=== PATIENT | male | born 1935 | race Caucasian/White ===

== ENCOUNTER 2019-04-22 17:18 | Emergency (ER) | payer MEDICARE ==
--- NOTE | 2019-04-22 17:20 | ERPHSYRPT ---
- History of Present Illness Time Seen by Provider: 04/22/19 17:20 Source: patient, family Exam Limitations: no limitations Physician History: 83 y/o white male presents with lower back pain and bilat rib pain after slipping out of his chair. pt is ordinarily kyphotic. when he hit the floor on his back he felt his back flattened out and then rib pain began. 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 he is ok with narcotics here and only for a couple of days at home but not more than that. denies head or neck injury. Occurred: this afternoon Reason for Fall: slipped Injuries/Pain Location: back, lower, middle Loss of Consciousness: no loss of consciousness Quality: sharpness Severity of Pain-Max: moderate Severity of Pain-Current: moderate Modifying Factors: Improves With: movement Associated Symptoms (Fall): back pain, trouble walking Allergies/Adverse Reactions: No Known Drug Allergies Allergy (Unverified 04/22/19 17:32) Home Medications: Dronedarone HCl [Multaq] 400 mg PO DAILY 04/22/19 [History] Finasteride 5 mg PO DAILY 04/22/19 [History] Furosemide 40 mg PO DAILY 04/22/19 [History] Metoprolol Succinate 50 mg PO DAILY 04/22/19 [History] Tamsulosin HCl 0.4 mg PO DAILY 04/22/19 [History] - Review of Systems Constitutional: No Symptoms Eyes: No Symptoms Ears, Nose, & Throat: No Symptoms Respiratory: No Symptoms Cardiac: No Symptoms Abdominal/Gastrointestinal: No Symptoms Genitourinary Symptoms: No Symptoms Musculoskeletal: Back Pain, Other (bilat rib pain) Skin: No Symptoms Neurological: No Symptoms Psychological: No Symptoms Endocrine: No Symptoms Hematologic/Lymphatic: No Symptoms Immunological/Allergic: No Symptoms All Other Systems: Reviewed and Negative - Past Medical History Neurological History: TIA Cardiac History: No Pertinent History, Hypertension Respiratory History: No Pertinent History Endocrine Medical History: No Pertinent History Musculoskeletal History: Osteoarthritis GI Medical History: No Pertinent History History: No Pertinent History Psycho-Social History: No Pertinent History Other Medical History: PT. HAD RETINAL TIA SVERAL YEARS AGO - Past Surgical History Neuro Surgical History: No Pertinent History Cardiac: No Pertinent History Respiratory: No Pertinent History Gastrointestinal: No Pertinent History Genitourinary: No Pertinent History Musculoskeletal: No Pertinent History Male Surgical History: No Pertinent History - Nursing Vital Signs Nursing Vital Signs: Initial Vital Signs Temperature 98.0 F 04/22/19 17:25 Pulse Rate 53 L 04/22/19 17:25 Respiratory Rate 20 04/22/19 17:25 Blood Pressure 178/83 04/22/19 17:25 O2 Sat by Pulse Oximetry 100 04/22/19 17:25 Pain Scale Pain Intensity 6 - Jeet Coma Score Best Eye Response (Central): (4) open spontaneously Best Verbal Response (Jeet): (5) oriented Best Motor Response (Central): (6) obeys commands Central Total: 15 - Physical Exam General Appearance: no apparent distress, alert, anxiety Head Injury: no evidence of injury Eye Exam: PERRL/EOMI, eyes nml inspection ENT Exam: airway nml, nml ext.inspection Neck Exam: supple, trachea midline, full range of motion, normal alignment Respiratory/Chest Exam: No chest tenderness, No respiratory distress, No crepitus Gastrointestinal Exam: soft, normal bowel sounds, No tenderness Rectal Exam: not done Back Exam: vertebral tenderness (lumbar and lower thoraci), other (bilat lower rib pain) Extremity Exam: normal inspection, normal range of motion, pelvis stable Neurologic Exam: alert, oriented x 3, cooperative, 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, normal mood/affect, nml cerebellar function Skin Exam: normal color, warm, dry SpO2 Interpretation: normal O2 Delivery: Room Air Ordered Tests: Active Orders 24 hr Category Date Time Status LUMBAR LIMITED (2 OR 3 VIEWS) Stat Exams 04/22/19 17:41 Ordered RIBS BILATERAL (MIN 3 VIEWS) Stat Exams 04/22/19 Ordered THORACIC SPINE (AP,LAT,SWIMM) Stat Exams 04/22/19 17:41 Ordered Medication Summary Discontinued Medications Generic Name Dose Route Start Last Admin Trade Name Freq PRN Reason Stop Dose Admin Hydromorphone HCl 0.5 mg 04/22/19 18:48 Hydromorphone 1 Mg/Ml Ampule IM 04/22/19 18:49 STAT ONE Hydromorphone HCl Confirm 04/22/19 18:56 Hydromorphone 1 Mg/Ml Ampule Administered 04/22/19 18:57 Dose 1 mg .ROUTE .STK-MED ONE Lorazepam 0.5 mg 04/22/19 18:49 Ativan 2 Mg/1 Ml Vial IM 04/22/19 18:50 STAT ONE Lorazepam Confirm 04/22/19 18:56 Ativan 2 Mg/1 Ml Vial Administered 04/22/19 18:57 Dose 2 mg .ROUTE .STK-MED ONE Ondansetron HCl 4 mg 04/22/19 18:49 Zofran Odt 4 Mg PO 04/22/19 18:50 STAT ONE Ondansetron HCl Confirm 04/22/19 18:56 Zofran Odt 4 Mg Administered 04/22/19 18:57 Dose 4 mg .ROUTE .STK-MED ONE - Progress Progress: unchanged Progress Note: 04/22/19 19:14 rib xrays-no acute fx lumbar xray-no acute fx or subluxation thoracic xray-no acute fx or subluxation Counseled pt/family regarding: diagnosis, need for follow-up, rad results - Departure Departure Disposition: Home Clinical Impression: Fall, Back pain, Rib pain Condition: Stable Critical Care Time: No Referrals: ROB LIZAMA MD [Primary Care Provider] - Additional Instructions: follow up with primary doctor for further pain management. add allever 2 times daily with food for pain. Prescriptions: Carisoprodol 350 mg [Soma 350 mg] 350 mg PO Q12H PRN PRN #6 tablet MDD 2 PRN Reason: Muscle Spasms Oxycodone HCl/Acetaminophen [Percocet 5-325 mg Tablet] 1 each PO Q12H PRN PRN # 6 tablet MDD 2 PRN Reason: Pain
[2019-04-22 17:32] VITALS: PULSE 53
[2019-04-22] MEDS ORDERED: Hydromorphone 1 mg/ml Ampule IM ONE (18:48)
[2019-04-22] MEDS ORDERED: ZOFRAN ODT 4 MG PO ONE (18:49)
[2019-04-22] MEDS ORDERED: Ativan 2 MG/1 ML VIAL IM ONE (18:49)
[2019-04-22] MEDS ORDERED: Ativan 2 MG/1 ML VIAL ONE (18:56)
[2019-04-22] MEDS ORDERED: Hydromorphone 1 mg/ml Ampule ONE (18:56)
[2019-04-22] MEDS ORDERED: ZOFRAN ODT 4 MG ONE (18:56)
[2019-04-22 19:24] VITALS: BP 151/80; O2SAT 94
[2019-04-22] MEDS ORDERED: PERCOCET TABLET 5/325MG PO STA (20:15)
[2019-04-22] MEDS ORDERED: PERCOCET TABLET 5/325MG ONE (20:23)
--- NOTE | 2019-04-23 08:45 | XRAY ---
Indication: Pain following fall. Comparison: None 3 views of the lumbar spine demonstrates 5 lumbar vertebral segments with minimal levoscoliosis, moderate multilevel degenerative spondylosis, mild aortoiliac ossifications, and calcified splenic granuloma. No other bony, articular, or soft tissue abnormalities.
--- NOTE | 2019-04-23 08:47 | XRAY ---
Indication: Pain following fall. Comparison: None 2 views of the left and right ribs demonstrates mild/moderate degenerative changes throughout thoracolumbar spine, mild double curvature scoliosis, and pulmonary/splenic calcified granulomas. No other bony, articular, or soft tissue abnormalities.
--- NOTE | 2019-04-23 08:49 | XRAY ---
Indication: Pain following fall. Comparison: None 2 views of the thoracic spine demonstrates 12 typical rib-bearing thoracic vertebral segments with mild dextroscoliosis centered at T10, mild/moderate degenerative changes throughout the spine, and pulmonary/splenic calcified granulomas. No other bony, articular, or soft tissue abnormalities.
== END 2019-04-22 20:36 | disposition home or self-care (01) ==
LOC: ED 17:18
DX: M54.5 Low back pain (principal); R07.81 Pleurodynia; W07.XXXA Fall from chair, initial encounter; Z79.899 Other long term (current) drug therapy; Z86.73 Personal history of transient ischemic attack (TIA), and cerebral infarction without residual deficits; I10 Essential (primary) hypertension
CPT/HCPCS: 71110; 72072; 72100; 96372; 99284; J1170; J2060; Q0162; A9270-GY

== ENCOUNTER 2019-11-04 10:36 | Emergency (ER) | payer MEDICARE ==
--- NOTE | 2019-11-04 10:43 | ERPHSYRPT ---
- History of Present Illness Time Seen by Provider: 11/04/19 10:43 Source: patient Exam Limitations: no limitations Physician History: This is an 84-year-old gentleman who has a history of hypertension and is also taking Eliquis chronically, who presents with a 4-day history of mild cough and fever. He has no specific chest pain. He has no abdominal pain he had no nausea vomiting or diarrhea. Patient has no known exposures to any one with flulike symptoms or diagnoses. Patient was seen in the outpatient care clinic but because of his fever he was sent to the emergency room for evaluation. Patient's temperature here in the emergency room upon arrival is over 102 F despite taking Tylenol approximately 1 hour prior to arrival. Patient does have some weakness that is generalized. He has only mild shortness of breath. Timing/Duration: day(s) (4) Activities at Onset: none Severity of Dyspnea-Max: mild Severity of Dyspnea-Current: mild Possible Cause: no prior episodes Modifying Factors: Improves With: coughing (Mild) Associated Symptoms: cough (Mild), fever, No chest pain/discomfort Allergies/Adverse Reactions: No Known Drug Allergies Allergy (Verified 11/04/19 10:44) Home Medications: Dronedarone HCl [Multaq] 400 mg PO DAILY 04/22/19 [History] Finasteride 5 mg PO DAILY 04/22/19 [History] Furosemide 40 mg PO DAILY 04/22/19 [History] Metoprolol Succinate 50 mg PO DAILY 04/22/19 [History] Tamsulosin HCl 0.4 mg PO DAILY 04/22/19 [History] Apixaban [Eliquis] 2.5 mg PO BID 11/04/19 [History] Benzonatate 100 mg PO DAILY 11/04/19 [History] Levothyroxine Sodium [Synthroid] 25 mcg PO DAILY 11/04/19 [History] allopurinoL [Allopurinol] 300 mg PO DAILY 11/04/19 [History] Hx Tetanus, Diphtheria Vaccination/Date Given: Yes Hx Influenza Vaccination/Date Given: Yes Hx Pneumococcal Vaccination/Date Given: Yes Travel Risk - International Travel Have you traveled outside of the country in past 3 weeks: No (n) Have you or anyone close to you been diagnosed with or: No Do your reside in a community with a known COVID-19 case?: Yes If Yes where:: [place] - Review of Systems Constitutional: Fever, Weakness Eyes: No Symptoms Ears, Nose, & Throat: No Symptoms Respiratory: Cough (Mild), Dyspnea (Mild) Cardiac: No Symptoms Abdominal/Gastrointestinal: No Symptoms Genitourinary Symptoms: No Symptoms Musculoskeletal: No Symptoms Skin: No Symptoms Neurological: No Symptoms Psychological: No Symptoms Endocrine: No Symptoms Hematologic/Lymphatic: No Symptoms Immunological/Allergic: No Symptoms All Other Systems: Reviewed and Negative - Past Medical History Pertinent Past Medical History: Yes Neurological History: TIA Cardiac History: Arrhythmia, Hypertension Respiratory History: No Pertinent History Endocrine Medical History: Adrenal Insufficiency Musculoskeletal History: Osteoarthritis GI Medical History: No Pertinent History History: No Pertinent History Psycho-Social History: No Pertinent History Male Reproductive Disorders: No Pertinent History Other Medical History: 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 inguinal hernia - Social History Smoking Status: Former smoker Exposure to second hand smoke: No Drug Use: none Patient Lives Alone: No - Nursing Vital Signs Nursing Vital Signs: Initial Vital Signs Temperature 102.6 F 11/04/19 10:38 Pulse Rate 79 11/04/19 10:38 Respiratory Rate 24 11/04/19 10:38 Blood Pressure 108/54 11/04/19 10:38 O2 Sat by Pulse Oximetry 98 11/04/19 10:38 Pain Scale Pain Intensity 0 - Physical Exam General Appearance: no apparent distress, alert, anxiety (Mild) Eye Exam: PERRL/EOMI, eyes nml inspection Ears, Nose, Throat Exam: hearing grossly normal Neck Exam: normal inspection, non-tender, supple, full range of motion Respiratory Exam: normal breath sounds, lungs clear, airway intact, No chest tenderness, No respiratory distress Cardiovascular/Chest Exam: normal heart sounds, regular rate/rhythm Abdominal/Gastrointestinal Exam: soft, normal bowel sounds, No tenderness, No guarding, No rebound Rectal Exam: not done Extremity Exam: non-tender, normal range of motion, normal inspection Neurologic Exam: alert, oriented x 3, cooperative, bicycle i assembler 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 tested Skin Exam: normal color, warm, dry Lymphatic Exam: No adenopathy SpO2 Interpretation: normal O2 Delivery: Room Air - Course Nursing assessment & vital signs reviewed: Yes EKG Interpreted by Me: RATE (75), Sinus Rhythm, NORMAL AXIS, NORMAL INTERVALS, NORMAL QRS, Other (No comparison EKG) Ordered Tests: Active Orders 24 hr Category Date Time Status Car Washer STAT Care 11/04/19 10:55 Active EKG-ER Only STAT Care 11/04/19 10:54 Active IV Insertion STAT Care 11/04/19 10:54 Active CHEST 1 VIEW (PORTABLE) Stat Exams 11/04/19 10:55 Completed BLOOD CULTURE Stat Lab 11/04/19 11:20 Received CBC W DIFF Stat Lab 11/04/19 11:20 Completed CMP Stat Lab 11/04/19 11:20 Completed Lactic Acid Stat Lab 11/04/19 10:54 Completed Lactic Acid Stat Lab 11/04/19 13:06 Received Manual Differential NC Stat Lab 11/04/19 11:20 Completed [place] Screen Stat Lab 11/04/19 11:20 Completed NT PRO BNP Stat Lab 11/04/19 11:20 Completed PROTIME WITH INR Stat Lab 11/04/19 11:20 Completed TROPONIN Q3H Lab 11/04/19 11:20 Completed TROPONIN Q3H Lab 11/04/19 14:00 Ordered TROPONIN Q3H Lab 11/04/19 17:00 Ordered TROPONIN Q3H Lab 11/04/19 20:00 Ordered TROPONIN Q3H Lab 11/04/19 23:00 Ordered UA W/RFX UR CULTURE Stat Lab 11/04/19 12:20 Completed Medication Summary Generic Name Dose Route Start Last Admin Trade Name Freq PRN Reason Stop Dose Admin Sodium Chloride 1,000 mls @ 999 mls/hr 11/04/19 12:52 11/04/19 12:58 Sodium Chloride 0.9% 1000 Ml IV 11/04/19 13:52 999 mls/hr .Q1H1M STA Administration Discontinued Medications Generic Name Dose Route Start Last Admin Trade Name Freq PRN Reason Stop Dose Admin Acetaminophen 650 mg 11/04/19 10:56 11/04/19 11:09 Tylenol 325 Mg PO 11/04/19 10:57 Not Given STAT STA Sodium Chloride 1,000 mls @ 999 mls/hr 11/04/19 10:54 11/04/19 11:07 Sodium Chloride 0.9% 1000 Ml IV 11/04/19 11:54 999 mls/hr .Q1H1M STA Administration Sodium Chloride Confirm 11/04/19 11:06 Sodium Chloride 0.9% 1000 Ml Administered 11/04/19 11:07 Dose 1,000 mls @ ud .ROUTE .STK-MED ONE Sodium Chloride Confirm 11/04/19 12:56 Sodium Chloride 0.9% 1000 Ml Administered 11/04/19 12:57 Dose 1,000 mls @ ud .ROUTE .STK-MED ONE Lab/Rad Data: Laboratory Result Diagrams 11/04/19 11:20 11/04/19 11:20 Laboratory Results 11/04/19 11/04/19 11/04/19 Range/Units 12:20 11:20 11:20 WBC (4.0-10.5) K/mm3 RBC (4.1-5.6) M/mm3 Hgb (12.5-18.0) gm/dl Hct (42-50) % MCV (78-100) fl MCH (26-32) pg MCHC (32-36) g/dl RDW (11.5-14.0) % Plt Count (150-450) K/mm3 MPV (7.5-11.0) fl PT (8.83-12.87) SECONDS INR (0.8-3.0) Sodium (137-145) mmol/L Potassium (3.5-5.1) mmol/L Chloride (98-107) mmol/L Carbon Dioxide (22-30) mmol/L Anion Gap (5-15) MEQ/L BUN (9-20) mg/dL Creatinine (0.66-1.25) mg/dL Estimated GFR ML/MIN Glucose (74-106) mg/dL Lactic Acid (0.4-2.0) Calcium (8.4-10.2) mg/dL Total Bilirubin (0.2-1.3) mg/dL AST (17-59) U/L ALT (0-50) U/L Alkaline Phosphatase (38-126) U/L Troponin I (0.000-0.034) ng/mL NT-Pro-B Natriuret Pep (0-1800) pg/mL Serum Total Protein (6.3-8.2) g/dL Albumin (3.5-5.0) g/dL Urine Color YELLOW (YELLOW) Urine Appearance CLEAR (CLEAR) Urine pH 5.0 (5-6) Ur Specific [place] 1.011 (1.005-1.025) Urine Protein NEGATIVE (Negative) Urine Ketones NEGATIVE (NEGATIVE) Urine Blood NEGATIVE (0-5) Erich/ul Urine Nitrite NEGATIVE (NEGATIVE) Urine Bilirubin NEGATIVE (NEGATIVE) Urine Urobilinogen NEGATIVE (0-1) mg/dL Ur Leukocyte Esterase NEGATIVE (NEGATIVE) Urine WBC (Auto) NONE (0-5) /HPF Urine RBC (Auto) 0-2 (0-2) /HPF U Hyaline Cast (Auto) 6-10 (0-2) /LPF U Epithel Cells (Auto) NONE (FEW) /HPF Urine Bacteria (Auto) NONE (NEGATIVE) /HPF Urine Mucus (Auto) SLIGHT (NEGATIVE) /HPF Urine Culture Reflexed NO (NO) Urine Glucose NEGATIVE (NEGATIVE) mg/dL Monoscreen NEGATIVE (Negative) Influenza Type A Ag NEGATIVE (NEGATIVE) Influenza Type B Ag NEGATIVE (NEGATIVE) RSV (PCR) NEGATIVE (Negative) 11/04/19 11/04/19 11/04/19 Range/Units 11:20 11:20 11:20 WBC (4.0-10.5) K/mm3 RBC (4.1-5.6) M/mm3 Hgb (12.5-18.0) gm/dl Hct (42-50) % MCV (78-100) fl MCH (26-32) pg MCHC (32-36) g/dl RDW (11.5-14.0) % Plt Count (150-450) K/mm3 MPV (7.5-11.0) fl PT 22.2 H (8.83-12.87) SECONDS INR 1.94 (0.8-3.0) Sodium 143 (137-145) mmol/L Potassium 3.9 (3.5-5.1) mmol/L Chloride 104 (98-107) mmol/L Carbon Dioxide 29 (22-30) mmol/L Anion Gap 13.6 (5-15) MEQ/L BUN 64 H (9-20) mg/dL Creatinine 2.46 H (0.66-1.25) mg/dL Estimated GFR 26.8 ML/MIN Glucose 117 H (74-106) mg/dL Lactic Acid (0.4-2.0) Calcium 8.5 (8.4-10.2) mg/dL Total Bilirubin 0.80 (0.2-1.3) mg/dL AST 49 (17-59) U/L ALT 38 (0-50) U/L Alkaline Phosphatase 96 (38-126) U/L Troponin I < 0.012 (0.000-0.034) ng/mL NT-Pro-B Natriuret Pep 1040 (0-1800) pg/mL Serum Total Protein 6.9 (6.3-8.2) g/dL Albumin 3.9 (3.5-5.0) g/dL Urine Color (YELLOW) Urine Appearance (CLEAR) Urine pH (5-6) Ur Specific [place] (1.005-1.025) Urine Protein (Negative) Urine Ketones (NEGATIVE) Urine Blood (0-5) Erich/ul Urine Nitrite (NEGATIVE) Urine Bilirubin (NEGATIVE) Urine Urobilinogen (0-1) mg/dL Ur Leukocyte Esterase (NEGATIVE) Urine WBC (Auto) (0-5) /HPF Urine RBC (Auto) (0-2) /HPF U Hyaline Cast (Auto) (0-2) /LPF U Epithel Cells (Auto) (FEW) /HPF Urine Bacteria (Auto) (NEGATIVE) /HPF Urine Mucus (Auto) (NEGATIVE) /HPF Urine Culture Reflexed (NO) Urine Glucose (NEGATIVE) mg/dL Monoscreen (Negative) Influenza Type A Ag (NEGATIVE) Influenza Type B Ag (NEGATIVE) RSV (PCR) (Negative) 11/04/19 11/04/19 Range/Units 11:20 10:54 WBC 5.3 (4.0-10.5) K/mm3 RBC 3.73 L (4.1-5.6) M/mm3 Hgb 11.2 L (12.5-18.0) gm/dl Hct 34.9 L (42-50) % MCV 93.6 (78-100) fl MCH 30.0 (26-32) pg MCHC 32.1 (32-36) g/dl RDW 15.0 H (11.5-14.0) % Plt Count 178 (150-450) K/mm3 MPV 10.0 (7.5-11.0) fl PT (8.83-12.87) SECONDS INR (0.8-3.0) Sodium (137-145) mmol/L Potassium (3.5-5.1) mmol/L Chloride (98-107) mmol/L Carbon Dioxide (22-30) mmol/L Anion Gap (5-15) MEQ/L BUN (9-20) mg/dL Creatinine (0.66-1.25) mg/dL Estimated GFR ML/MIN Glucose (74-106) mg/dL Lactic Acid 2.4 H (0.4-2.0) Calcium (8.4-10.2) mg/dL Total Bilirubin (0.2-1.3) mg/dL AST (17-59) U/L ALT (0-50) U/L Alkaline Phosphatase (38-126) U/L Troponin I (0.000-0.034) ng/mL NT-Pro-B Natriuret Pep (0-1800) pg/mL Serum Total Protein (6.3-8.2) g/dL Albumin (3.5-5.0) g/dL Urine Color (YELLOW) Urine Appearance (CLEAR) Urine pH (5-6) Ur Specific [place] (1.005-1.025) Urine Protein (Negative) Urine Ketones (NEGATIVE) Urine Blood (0-5) Erich/ul Urine Nitrite (NEGATIVE) Urine Bilirubin (NEGATIVE) Urine Urobilinogen (0-1) mg/dL Ur Leukocyte Esterase (NEGATIVE) Urine WBC (Auto) (0-5) /HPF Urine RBC (Auto) (0-2) /HPF U Hyaline Cast (Auto) (0-2) /LPF U Epithel Cells (Auto) (FEW) /HPF Urine Bacteria (Auto) (NEGATIVE) /HPF Urine Mucus (Auto) (NEGATIVE) /HPF Urine Culture Reflexed (NO) Urine Glucose (NEGATIVE) mg/dL Monoscreen (Negative) Influenza Type A Ag (NEGATIVE) Influenza Type B Ag (NEGATIVE) RSV (PCR) (Negative) - Progress Air Movement: good Progress Note: 11/04/19 11:29 Chest x-ray is a no evidence of acute process 11/04/19 11:30 Medical decision making: This patient is an 84-year-old gentleman who has fever with mild cough mild shortness of breath. He has had no known exposure to any individuals with flulike symptoms. However, there is positive COVID patients in this community. Patient does have a risk of rapid worsening of symptoms if he is positive for the COVID virus. Therefore, we will be doing a septic/fever work-up including testing him for the COVID virus. Differential diagnosis includes pneumonia, urinary tract infection, viral illness. Less likely would be thyroid or adrenal causes. 11/04/19 13:12 Patient states that he is feeling much better after the liter of fluid. We will give him a second liter of fluid. I am not finding any bacterial source of his fever. It is likely a viral illness. His respiratory panel is negative. The COVID lab test is pending. We will allow the patient to be discharged to home with self quarantining. We will notify him of his lab results. Blood Culture(s) Obtained: Yes Counseled pt/family regarding: lab results, diagnosis, need for follow-up, rad results - Departure Departure Disposition: Home Clinical Impression: Fever, Viral illness Condition: Stable Critical Care Time: No Referrals: ROB LIZAMA MD [Primary Care Provider] - Additional Instructions: Drink plenty of fluids. Use Tylenol 650 mg every 4 hours for fever control. Self quarantine until you receive word of your test results. This may take several days. Continue your medication as prescribed. Return to the emergency department if your symptoms worsen.
[2019-11-04] MEDS ORDERED: Sodium Chloride 0.9% 1000 ML 1,000 ML IV STA ×2 (10:54→12:52)
[2019-11-04] MEDS ORDERED: TYLENOL 325 MG PO STA (10:56)
[2019-11-04] MEDS ORDERED: Sodium Chloride 0.9% 1000 ML 1,000 ML ONE ×2 (11:06→12:56)
--- NOTE | 2019-11-04 11:19 | XRAY ---
Indication: Short of breath and cough. Comparison: February 25, 2019. Portable chest less inflated and remains clear. Heart is not enlarged for AP portable technique. Bony thorax intact again with mild degenerative changes. No new/acute findings. Impression: Continued nonacute chest.
[2019-11-04 11:40] LABS: Hematocrit 34.9 % (42-50); Hemoglobin 11.2 gm/dl (12.5-18.0); Mean Cell Volume 93.6 fl (78-100); Mean Corpuscular Hgb Concent. 32.1 g/dl (32-36); Platelet Count 178 K/mm3 (150-450); Red Blood Count 3.73 M/mm3 (4.1-5.6); White Blood Count 5.3 K/mm3 (4.0-10.5)
[2019-11-04 11:46] LABS: INR 1.94 (0.8-3.0); PROTIME 22.2 SECONDS (8.83-12.87)
[2019-11-04 11:59] LABS: ALBUMIN 3.9 g/dL (3.5-5.0); ANION GAP 13.6 MEQ/L (5-15); Calcium 8.5 mg/dL (8.4-10.2); Creatinine 1 2.46 mg/dL (0.66-1.25); Potassium 3.9 mmol/L (3.5-5.1); Total Protein 6.9 g/dL (6.3-8.2)
[2019-11-04 12:05] LABS: BILIRUBIN,TOTAL 0.8 mg/dL (0.2-1.3)
[2019-11-04 12:16] LABS: INFLUENZA A NEGATIVE (NEGATIVE); INFLUENZA B NEGATIVE (NEGATIVE); RESPIRATORY SYNCTIAL VIRUS NEGATIVE (Negative)
[2019-11-04 12:26] LABS: Appearance CLEAR (CLEAR); Bilirubin NEGATIVE (NEGATIVE); Blood NEGATIVE Ery/ul (0-5); Glucose NEGATIVE (NEGATIVE); Ketones NEGATIVE (NEGATIVE); Leukocyte Esterase NEGATIVE (NEGATIVE); Mucus SLIGHT /HPF (NEGATIVE); Nitrite NEGATIVE (NEGATIVE); Protein,Urine Dip NEGATIVE (Negative); RBC 0-2 /HPF (0-2); Specific Gravity 1.011 (1.005-1.025); Urobilinogen NEGATIVE mg/dL (0-1)
[2019-11-04 13:12] VITALS: O2SAT 98
[2019-11-04 13:46] VITALS: BP 118/79; PULSE 85
[2019-11-04 14:49] LABS: BAND 16 % (0.0-2.0); Eosinophil 2 % (0.00-3.0); Lymphocytes 12 % (24-44); Monocyte 2 % (0.0-12.0); Neutrophils 68 % (36.-66.); Platelet Estimate NORMAL (NORMAL); Total Cells Counted 100
== END 2019-11-04 14:15 | disposition home or self-care (01) ==
LOC: ED 10:36
DX: R50.9 Fever, unspecified (principal); B34.9 Viral infection, unspecified; I10 Essential (primary) hypertension; Z79.899 Other long term (current) drug therapy
CPT/HCPCS: 36000; 36415; 71045; 80053; 81001; 83605; 83880; 84484; 85025; 85610; 86308; 87040; 87631; 93005; 93041; 96360; 96361; 99000; 99284; U0001

== ENCOUNTER 2019-11-15 10:25 | Emergency (ER) | payer MEDICARE ==
[2019-11-15 11:11] LABS: Hematocrit 30.1 % (42-50); Hemoglobin 9.6 gm/dl (12.5-18.0); Mean Cell Volume 95.9 fl (78-100); Mean Corpuscular Hemoglobin 30.6 pg (26-32); Mean Corpuscular Hgb Concent. 31.9 g/dl (32-36); Mean Platelet Volume 8.7 fl (7.5-11.0); Platelet Count 255 K/mm3 (150-450); Red Blood Count 3.14 M/mm3 (4.1-5.6); Red Cell Distribution Width 15.3 % (11.5-14.0); White Blood Count 7.9 K/mm3 (4.0-10.5)
[2019-11-15 11:20] LABS: INR 1.72 (0.8-3.0); PROTIME 19.6 SECONDS (8.83-12.87)
[2019-11-15 11:23] LABS: Uric Acid 6.2 mg/dL (3.5-7.2)
[2019-11-15 11:33] LABS: Erythrocyte Sedimentation Rate 54 mm/hr (0-15)
[2019-11-15 11:43] LABS: Appearance CLEAR (CLEAR); Bilirubin NEGATIVE (NEGATIVE); Blood NEGATIVE Ery/ul (0-5); Glucose NEGATIVE (NEGATIVE); Ketones NEGATIVE (NEGATIVE); Leukocyte Esterase NEGATIVE (NEGATIVE); Mucus SLIGHT /HPF (NEGATIVE); Nitrite NEGATIVE (NEGATIVE); Protein,Urine Dip NEGATIVE (Negative); Urobilinogen NEGATIVE mg/dL (0-1)
--- NOTE | 2019-11-15 11:53 | XRAY ---
Indication: Pain and swelling. No known injury. Comparison: None 3 nonweightbearing views left foot demonstrates tiny posterior heel spur. No other bony, articular, or soft tissue abnormalities.
--- NOTE | 2019-11-15 11:55 | XRAY ---
Indication: Bilateral feet pain. Two-dimensional sonogram and color Doppler imaging of the major venous vessels of the left and right leg was performed. Comparison: None No thrombus seen in the examined deep venous vessels of the left and right leg including greater saphenous vein. Veins demonstrate normal compressibility. Venous waveforms are normal with and without augmentation. Impression: Left and right legs negative for DVT.
--- NOTE | 2019-11-15 12:03 | XRAY ---
Indication: Pain and swelling. No known injury. Comparison: None 3 nonweightbearing views right foot demonstrates small plantar heel spur. No other bony, articular, or soft tissue abnormalities.
[2019-11-15 12:24] VITALS: BP 109/56; PULSE 52
[2019-11-15 12:25] VITALS: O2SAT 98
--- NOTE | 2019-11-15 12:25 | ERPHSYRPT ---
- History of Present Illness Time Seen by Provider: 11/15/19 10:45 Source: patient Exam Limitations: no limitations Patient Subjective Stated Complaint: pt states that he has pain in his left knee and perico feet on the tops, painful walking, Dr. Lizama thought that he may have gout because he had been having pain in his right toe Triage Nursing Assessment: Pt brought in by wheelchair and came from Dr. Leary office, perico edema to feet, pain in lateral left knee, hot to touch, vitals wnl, feet painful when walking, pulses normal, knee painful to touch on lateral side Physician History: Patient is under treatment presently for gout continues to have pain especially in the left knee and in both feet is pain in the dorsum of both feet and the left knee with some swelling this is been going on for a long time. Concern for DVT in the PCP office. Method of Injury: unknown Quality: aching, burning, sharpness Severity of Pain-Max: moderate Severity of Pain-Current: moderate Lower Extremities Pain: knee: left, foot: bilateral Modifying Factors: Improves With: nothing Allergies/Adverse Reactions: No Known Drug Allergies Allergy (Verified 11/15/19 10:54) Home Medications: Dronedarone HCl [Multaq] 400 mg PO DAILY 04/22/19 [History] Finasteride 5 mg PO DAILY 04/22/19 [History] Furosemide 40 mg PO DAILY 04/22/19 [History] Metoprolol Succinate 50 mg PO DAILY 04/22/19 [History] Tamsulosin HCl 0.4 mg PO DAILY 04/22/19 [History] Apixaban [Eliquis] 2.5 mg PO BID 11/04/19 [History] Benzonatate 100 mg PO DAILY 11/04/19 [History] Levothyroxine Sodium [Synthroid] 25 mcg PO DAILY 11/04/19 [History] allopurinoL [Allopurinol] 300 mg PO DAILY 11/04/19 [History] Hx Tetanus, Diphtheria Vaccination/Date Given: Yes Hx Influenza Vaccination/Date Given: Yes Hx Pneumococcal Vaccination/Date Given: Yes Travel Risk - International Travel Have you traveled outside of the country in past 3 weeks: No Have you or anyone close to you been diagnosed with or: No Do your reside in a community with a known COVID-19 case?: Yes If Yes where:: [place] - Coronavirus Screening Has patient experienced Coronavirus symptoms: No - Review of Systems Constitutional: No Fever, No Chills Eyes: No Symptoms Ears, Nose, & Throat: No Symptoms Respiratory: No Cough, No Dyspnea Cardiac: No Chest Pain, No Edema, No Syncope Abdominal/Gastrointestinal: No Abdominal Pain, No Nausea, No Vomiting, No Diarrhea Genitourinary Symptoms: No Dysuria Musculoskeletal: Arthralgias, Joint Redness, Joint Pain, Joint Swelling, No Back Pain, No Neck Pain Skin: No Rash Neurological: No Dizziness, No Focal Weakness, No Sensory Changes Psychological: No Symptoms Endocrine: No Symptoms All Other Systems: Reviewed and Negative - Past Medical History Pertinent Past Medical History: Yes Neurological History: TIA Cardiac History: Arrhythmia, Hypertension Respiratory History: No Pertinent History Endocrine Medical History: Adrenal Insufficiency Musculoskeletal History: Osteoarthritis GI Medical History: No Pertinent History History: No Pertinent History Psycho-Social History: No Pertinent History Male Reproductive Disorders: No Pertinent History Other Medical History: 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 inguinal hernia - Social History Smoking Status: Former smoker Exposure to second hand smoke: No Drug Use: none Patient Lives Alone: No - Nursing Vital Signs Nursing Vital Signs: Initial Vital Signs Temperature 98.2 F 11/15/19 10:40 Pulse Rate 68 11/15/19 10:40 Blood Pressure 123/63 11/15/19 10:40 O2 Sat by Pulse Oximetry 100 11/15/19 10:40 Pain Scale Pain Intensity [Foot] 4 Pain Intensity 4 - Physical Exam General Appearance: mild distress, alert Eyes, Ears, Nose, Throat Exam: moist mucous membranes Neck Exam: non-tender, supple Cardiovascular/Respiratory Exam: chest non-tender, normal breath sounds, regular rate/rhythm, no respiratory distress Gastrointestinal/Abdominal Exam: non-tender, guarding Back Exam: normal inspection, No vertebral tenderness Knees Exam: left knee: bone tenderness, soft tissue tenderness, swelling Foot Exam: bilateral foot: bone tenderness, limited range of motion, pain, soft tissue tenderness, swelling Neuro/Tendon Exam: normal sensation, normal motor functions Mental Status Exam: alert, oriented x 3, cooperative Skin Exam: normal color, warm, dry SpO2 Interpretation: normal SpO2: 98 - Course Nursing assessment & vital signs reviewed: Yes - Radiology Exams Foot X-ray Interpretation: Negative, No Fracture, No Subluxation - Radiology Ultrasound Exam Venous Lower Extremity Ultrasound: discussed w/radiologist Ordered Tests: Active Orders 24 hr Category Date Time Status FOOT (MINIMUM 3 VIEWS) Stat Exams 11/15/19 10:52 Completed FOOT (MINIMUM 3 VIEWS) Stat Exams 11/15/19 10:54 Completed VENOUS BILATERAL EXTREMITY [US] Stat Exams 11/15/19 11:41 Completed CBC Stat Lab 11/15/19 11:05 Completed CK-Creatinine Phosphokinase Stat Lab 11/15/19 11:05 Completed D-DIMER QUANTITATIVE Stat Lab 11/15/19 11:05 Completed Erythrocyte Sedimentation Rate Stat Lab 11/15/19 11:05 Completed Lactic Acid Stat Lab 11/15/19 11:30 Completed PROTIME WITH INR Stat Lab 11/15/19 11:05 Completed UA W/RFX UR CULTURE Stat Lab 11/15/19 10:57 Completed Uric Acid Stat Lab 11/15/19 11:05 Completed Lab/Rad Data: Laboratory Result Diagrams 11/15/19 11:05 Laboratory Results 11/15/19 11/15/19 11/15/19 Range/Units 11:30 11:05 11:05 WBC (4.0-10.5) K/mm3 RBC (4.1-5.6) M/mm3 Hgb (12.5-18.0) gm/dl Hct (42-50) % MCV (78-100) fl MCH (26-32) pg MCHC (32-36) g/dl RDW (11.5-14.0) % Plt Count (150-450) K/mm3 MPV (7.5-11.0) fl ESR (0-15) mm/hr PT 19.6 H (8.83-12.87) SECONDS INR 1.72 (0.8-3.0) D-Dimer 368 (215-500) ng/mL Lactic Acid 1.1 (0.4-2.0) Uric Acid 6.2 (3.5-7.2) mg/dL Creatine Kinase 51 L (55-170) U/L Urine Color (YELLOW) Urine Appearance (CLEAR) Urine pH (5-6) Ur Specific [place] (1.005-1.025) Urine Protein (Negative) Urine Ketones (NEGATIVE) Urine Blood (0-5) Erich/ul Urine Nitrite (NEGATIVE) Urine Bilirubin (NEGATIVE) Urine Urobilinogen (0-1) mg/dL Ur Leukocyte Esterase (NEGATIVE) Urine WBC (Auto) (0-5) /HPF Urine RBC (Auto) (0-2) /HPF U Hyaline Cast (Auto) (0-2) /LPF U Epithel Cells (Auto) (FEW) /HPF Urine Bacteria (Auto) (NEGATIVE) /HPF Urine Mucus (Auto) (NEGATIVE) /HPF Urine Culture Reflexed (NO) Urine Glucose (NEGATIVE) mg/dL 11/15/19 11/15/19 Range/Units 11:05 10:57 WBC 7.9 (4.0-10.5) K/mm3 RBC 3.14 L (4.1-5.6) M/mm3 Hgb 9.6 L (12.5-18.0) gm/dl Hct 30.1 L (42-50) % MCV 95.9 (78-100) fl MCH 30.6 (26-32) pg MCHC 31.9 L (32-36) g/dl RDW 15.3 H (11.5-14.0) % Plt Count 255 (150-450) K/mm3 MPV 8.7 (7.5-11.0) fl ESR 54 H (0-15) mm/hr PT (8.83-12.87) SECONDS INR (0.8-3.0) D-Dimer (215-500) ng/mL Lactic Acid (0.4-2.0) Uric Acid (3.5-7.2) mg/dL Creatine Kinase (55-170) U/L Urine Color YELLOW (YELLOW) Urine Appearance CLEAR (CLEAR) Urine pH 5.0 (5-6) Ur Specific [place] 1.010 (1.005-1.025) Urine Protein NEGATIVE (Negative) Urine Ketones NEGATIVE (NEGATIVE) Urine Blood NEGATIVE (0-5) Erich/ul Urine Nitrite NEGATIVE (NEGATIVE) Urine Bilirubin NEGATIVE (NEGATIVE) Urine Urobilinogen NEGATIVE (0-1) mg/dL Ur Leukocyte Esterase NEGATIVE (NEGATIVE) Urine WBC (Auto) NONE (0-5) /HPF Urine RBC (Auto) NONE (0-2) /HPF U Hyaline Cast (Auto) 6-10 (0-2) /LPF U Epithel Cells (Auto) NONE (FEW) /HPF Urine Bacteria (Auto) NONE (NEGATIVE) /HPF Urine Mucus (Auto) SLIGHT (NEGATIVE) /HPF Urine Culture Reflexed NO (NO) Urine Glucose NEGATIVE (NEGATIVE) mg/dL - Progress Progress: improved - Departure Departure Disposition: Home Clinical Impression: Acute gouty arthritis Condition: Stable Critical Care Time: No Referrals: ROB LIZAMA MD [Primary Care Provider] - Instructions: Gout (DC) Prescriptions: Prednisone 10 mg [Deltasone 10 mg] 20 mg PO BID #20 tablet
== END 2019-11-15 12:53 | disposition home or self-care (01) ==
LOC: ED 10:25
DX: M10.9 Gout, unspecified (principal); M19.90 Unspecified osteoarthritis, unspecified site; Z86.73 Personal history of transient ischemic attack (TIA), and cerebral infarction without residual deficits
CPT/HCPCS: 36415; 73630; 81001; 82550; 83605; 84550; 85027; 85379; 85610; 85652; 93970; 99284

== ENCOUNTER 2019-12-28 18:14 | Emergency (ER) | payer MEDICARE ==
[2019-12-28 18:24] VITALS: O2SAT 98
--- NOTE | 2019-12-28 18:53 | ERPHSYRPT ---
- History of Present Illness Time Seen by Provider: 12/28/19 18:48 Source: patient, family Exam Limitations: no limitations Patient Subjective Stated Complaint: Pt states "Dr. Horowitz took something off of me yesterday and I went to do a dressing change today and it started to bleed and I am on eliquis and it will not stopp bleeding." Triage Nursing Assessment: Pt presented alert and oriented X 3, skin pwd. PT ambulates with an upright steady gait, able to speak in clear full sentences pt in no apparent respiratory distress. PT has circular surgical wound to left side of neck, slightly trickling of blood contant noted. Physician History: pt had skin bx yesterday but broke loose with oozing today - is on Eliquis for his Afib- hemostasis achieved with surgicel in ER after exam. site looks OK without signs of infection. pt declines further lab work and has no symptoms but last tetanus shot about 10 years and would like booster. no symptoms of any other bleeding or internal symptoms - pt declines CBC as well. He has the capacity to make these choices and prefers to try this prior to other interventions. Timing/Duration: today Quality: other Severity: mild Location: neck Possible Causes: other (surgical excision wound) Associated Symptoms: denies symptoms Allergies/Adverse Reactions: No Known Drug Allergies Allergy (Verified 11/15/19 10:54) Home Medications: Dronedarone HCl [Multaq] 400 mg PO DAILY 04/22/19 [History] Finasteride 5 mg PO DAILY 04/22/19 [History] Furosemide 40 mg PO DAILY 04/22/19 [History] Metoprolol Succinate 50 mg PO DAILY 04/22/19 [History] Tamsulosin HCl 0.4 mg PO DAILY 04/22/19 [History] Apixaban [Eliquis] 2.5 mg PO BID 11/04/19 [History] Benzonatate 100 mg PO DAILY 11/04/19 [History] Levothyroxine Sodium [Synthroid] 25 mcg PO DAILY 11/04/19 [History] allopurinoL [Allopurinol] 300 mg PO DAILY 11/04/19 [History] Hx Tetanus, Diphtheria Vaccination/Date Given: No Hx Influenza Vaccination/Date Given: Yes Hx Pneumococcal Vaccination/Date Given: Yes Immunizations Up to Date: Yes Travel Risk - International Travel Have you traveled outside of the country in past 3 weeks: No - Coronavirus Screening Are you exhibiting any of the following symptoms?: No Close contact with a COVID-19 positive Pt in past 14-21 Days: No - Review of Systems Constitutional: No Fever, No Chills Eyes: No Symptoms Ears, Nose, & Throat: No Symptoms Respiratory: No Symptoms, No Cough, No Dyspnea Cardiac: No Symptoms, No Chest Pain, No Edema, No Syncope Abdominal/Gastrointestinal: No Symptoms, No Abdominal Pain, No Nausea, No Vomiting, No Diarrhea Genitourinary Symptoms: No Symptoms, No Dysuria Musculoskeletal: No Symptoms, No Back Pain, No Neck Pain Skin: Other (oozing wound), No Rash Neurological: No Symptoms, No Dizziness, No Focal Weakness, No Sensory Changes Psychological: No Symptoms Endocrine: No Symptoms All Other Systems: Reviewed and Negative - Past Medical History Pertinent Past Medical History: Yes Neurological History: TIA Cardiac History: Arrhythmia, Hypertension Respiratory History: No Pertinent History Endocrine Medical History: Adrenal Insufficiency Musculoskeletal History: Osteoarthritis GI Medical History: No Pertinent History History: No Pertinent History Psycho-Social History: No Pertinent History Male Reproductive Disorders: No Pertinent History Other Medical History: 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 inguinal hernia - Social History Smoking Status: Former smoker Exposure to second hand smoke: No Drug Use: none Patient Lives Alone: No - Nursing Vital Signs Nursing Vital Signs: Initial Vital Signs Temperature 97.9 F 12/28/19 18:19 Pulse Rate 56 L 12/28/19 18:19 Respiratory Rate 18 12/28/19 18:19 Blood Pressure 145/76 12/28/19 18:19 O2 Sat by Pulse Oximetry 98 12/28/19 18:19 Pain Scale Pain Intensity 2 - Physical Exam General Appearance: no apparent distress, alert Eye Exam: PERRL/EOMI, eyes nml inspection Ears, Nose, Throat Exam: normal ENT inspection, pharynx normal, moist mucous membranes Neck Exam: normal inspection, non-tender, supple, full range of motion Respiratory Exam: normal breath sounds, lungs clear, No respiratory distress Cardiovascular Exam: regular rate/rhythm, normal heart sounds Gastrointestinal/Abdomen Exam: soft, mass, No tenderness Rectal Exam: deferred Back Exam: normal inspection, normal range of motion, No CVA tenderness, No vertebral tenderness Extremity Exam: normal inspection, normal range of motion Neurologic Exam: alert, oriented x 3, cooperative, normal mood/affect, sensation nml, No motor deficits Skin Exam: normal color, warm, dry, other (oozing surgical excision site) SpO2 Interpretation: normal SpO2: 98 O2 Delivery: Room Air Procedures - Laceration/Wound Repair Left Neck Wound Location: Left, neck Wound Length (cm): 1 Wound's Depth, Shape: superficial Wound Explored: no foreign body noted Irrigated: Yes (cleansed and prepped the dressing applied) Hibiclens Prep: Yes Volume Anesthetic (ccs): 0 Wound Debrided: minimal Number of Sutures: 0 (surgicel) Layer Closure?: No Sterile Dressing Applied?: Yes Splint Applied?: No Sling Applied?: No Ordered Tests: Active Orders 24 hr Category Date Time Status Wound Care STAT Care 12/28/19 18:55 Active Medication Summary Discontinued Medications Generic Name Dose Route Start Last Admin Trade Name Freq PRN Reason Stop Dose Admin Diphtheria/Tetanus/Acell Pertussis 0.5 ml 12/28/19 18:55 12/28/19 19:04 Adacel Vial IM 12/28/19 18:56 0.5 ml .ONCE ONE Administration Diphtheria/Tetanus/Acell Pertussis Confirm 12/28/19 19:01 Adacel Vial Administered 12/28/19 19:02 Dose 0.5 ml IM .STK-MED ONE Tetanus/Diphtheria Toxoids Adsorbed Confirm 12/28/19 19:04 Tenivac Vial Administered 12/28/19 19:05 Dose 0.5 ml IM .STK-MED ONE - Progress Progress: improved, re-examined Progress Note: 12/28/19 19:43 recheck show hemostasis achieved. Counseled pt/family regarding: diagnosis, need for follow-up - Departure Departure Disposition: Home Clinical Impression: bleeding Sp skin biopsy Condition: Good Critical Care Time: No Referrals: ROB LIZAMA MD [Primary Care Provider] - Instructions: Surgical Wound (DC) Additional Instructions: followup with your Dr. this week leave dressing in place and do not wash. return meantime if further bleeding or other concerns or signs of infection.
[2019-12-28] MEDS ORDERED: Adacel Vial IM ONE ×2 (18:55→19:01)
[2019-12-28] MEDS ORDERED: TENIVAC VIAL IM ONE (19:04)
[2019-12-28 19:45] VITALS: BP 133/67; PULSE 88
== END 2019-12-28 19:52 | disposition home or self-care (01) ==
LOC: ED 18:14
DX: L76.22 Postprocedural hemorrhage of skin and subcutaneous tissue following other procedure (principal); Z79.01 Long term (current) use of anticoagulants; Z86.79 Personal history of other diseases of the circulatory system; Z79.899 Other long term (current) drug therapy; I10 Essential (primary) hypertension; E27.40 Unspecified adrenocortical insufficiency; N28.9 Disorder of kidney and ureter, unspecified
CPT/HCPCS: 90471; 90714; 90715; 99283

== ENCOUNTER 2020-08-13 09:13 | Day surgery (SDC) | payer MEDICARE ==
--- NOTE | 2020-08-06 08:53 | HP ---
DATE OF SURGERY: 08/13/2020 HISTORY OF PRESENT ILLNESS: The patient presents with referral from primary care doctor with CT scan saying he may have a possible sigmoid volvulus. He reports abdominal distention, mild left lower quadrant pain and alternating diarrhea and constipation for the past few months. He did move his bowels and bowels are moving. He is also reporting some nausea and vomiting off and on. Today he reports bowel movement and no pain. PAST MEDICAL HISTORY: IBS, hypertension, AFIB, hyperlipidemia, squamous cell carcinoma, hemorrhoids, chronic kidney disease and benign prostatic hypertrophy. PAST SURGICAL HISTORY: Right thyroid lobectomy. Inguinal hernia repair. FAMILY HISTORY: Brother with melanoma. SOCIAL HISTORY: Former smoker. MEDICATIONS: Preservision Areds, levothyroxine, furosemide, finasteride, Eliquis, Pramapexole, Multaq, Telmasartan,Ttamsulosin, metoprolol, Allopurinol, MiraLAX, metoprolol, omeprazole, chlorthalidone. ALLERGIES: NKDA. REVIEW OF SYSTEMS: CONSTITUTIONAL: Denies fever or chills. CHEST: Denies shortness of breath. HEART: Denies chest pain. ABDOMEN: Reports occasional left lower quadrant pain, nausea, vomiting, diarrhea and constipation. Denies rectal bleeding. INTEGUMENTARY: Negative. PHYSICAL EXAMINATION: GENERAL: No acute distress. CHEST: Nonlabored. No shortness of breath. HEART: Regular rate and rhythm. ABDOMEN: Soft, distended, nontender. EXTREMITIES: Edema 2+. NEURO: Alert. PSYCH: Appropriate. IMPRESSION: Colon distention, nausea, vomiting and abnormal CT scan. PLAN: EGD and colonoscopy with Dr. Josue Webb. As dictated by Ronel Blount NP.
[2020-08-13] MEDS ORDERED: Lactated Ringers 1,000 ML IV SCH (09:30)
[2020-08-13] MEDS ORDERED: DIPRIVAN 200 MG/20 ML IV ONE ×2 (11:37→11:53)
[2020-08-13 13:08] VITALS: PULSE 52; O2SAT 96
[2020-08-13 13:09] VITALS: BP 145/56
--- NOTE | 2020-08-14 09:04 | OP ---
SURGERY DATE/TIME: 08/13/2020 1137 PREOPERATIVE DIAGNOSIS: Nausea and vomiting, history of recent possible sigmoid volvulus. No recent endoscopic exam. POSTOPERATIVE DIAGNOSIS: Basically normal large bowel colonoscopic examination. PROCEDURES: 1) EGD. 2) Colonoscopy complete to cecum. SURGEON: Josue Webb M.D. ANESTHESIA: MAC. COMPLICATIONS: None. CONDITION: Stable. INDICATION: A patient requiring evaluation. DESCRIPTION OF PROCEDURE: Taken to endoscopy. Left lateral decubitus position. Pharyngoesophageal junction normal. Esophagus normal. Gastroesophageal junction normal. Fundus, body and antrum satisfactory. Pylorus initially seemed just a little snug and spastic but scope withdrew satisfactory. Duodenal bulb satisfactory. Large duodenal diverticulum anterior lateral. Second portion of duodenum satisfactory. Medial area of ampulla was normal. The scope was withdrawn and looped upon itself. No additional pathology. The scope withdrawn. The patient tolerated the procedure satisfactory. Anal digital examination satisfactory. Scope introduced. A very long redundant colon moderate diameter. With care and patience hepatic flexure, ascending and cecum was able to be cannulated. Base of the cecum, ileocecal valve was seen. Circumferential withdrawal no mucosal lesions were noted.
== END 2020-08-13 13:15 | disposition home or self-care (01) ==
LOC: SDC 09:13
PROVIDERS: ATTEND Surgery
DX: R11.2 Nausea with vomiting, unspecified (principal); Z87.19 Personal history of other diseases of the digestive system; R19.7 Diarrhea, unspecified; K59.00 Constipation, unspecified; Z79.899 Other long term (current) drug therapy; Z79.01 Long term (current) use of anticoagulants
CPT/HCPCS: 99100; J2704

== ENCOUNTER 2021-12-25 09:23 | Emergency (ER) | payer MEDICARE ==
[2021-12-25] MEDS ORDERED: TORAdol 30 mg Injection IM ONE (09:37)
[2021-12-25] MEDS ORDERED: TYLENOL EXTRA STRENGTH 500 MG PO ONE (09:37)
[2021-12-25] MEDS ORDERED: TORAdol 30 mg Injection ONE (09:41)
[2021-12-25] MEDS ORDERED: TYLENOL EXTRA STRENGTH 500 MG ONE (09:41)
--- NOTE | 2021-12-25 09:41 | ERPHSYRPT ---
- History of Present Illness Time Seen by Provider: 12/25/21 09:37 Source: patient Patient Subjective Stated Complaint: PT states "I had that booster shot yesterday and now My back is hurting and my joints really hurt too." Triage Nursing Assessment: Pt presented alert and oriented X 3, skin pwd Pt ambulates with a slow shuffling gait, able to speak in clear full sentences. Pt resting comfortably on the bed. Physician History: PT states "I had that booster shot yesterday and now My back is hurting and my joints really hurt too."Denies any other symptoms. C/o low grade fever Timing/Duration: yesterday Severity: mild Associated Symptoms: denies symptoms Allergies/Adverse Reactions: No Known Drug Allergies Allergy (Verified 08/13/20 09:26) Home Medications: Dronedarone HCl [Multaq] 400 mg PO BID 04/22/19 [History] Finasteride 5 mg PO HS 04/22/19 [History] Furosemide 40 mg PO BID 04/22/19 [History] Metoprolol Succinate 50 mg PO DAILY 04/22/19 [History] Tamsulosin HCl 0.4 mg PO BID 04/22/19 [History] Apixaban [Eliquis] 2.5 mg PO BID 11/04/19 [History] allopurinoL [Allopurinol] 300 mg PO HS 11/04/19 [History] Levothyroxine Sodium 100 Mcg [Synthroid 100 Mcg] 125 mcg PO DAILY 08/05/20 [History] Multivitamin with Folic Acid [One Daily Multivitamin Tablet] 400 mcg PO DAILY 08/05/20 [History] Polyethylene Glycol 3350 [Miralax] 17 gm PO DAILY PRN PRN 08/05/20 [History] Pramipexole Di-HCl [Mirapex] 0.5 mg PO BID 08/05/20 [History] Telmisartan 80 mg [Micardis 80 MG Tablet] 80 mg PO HS 08/05/20 [History] Vit A/Vit C/Vit E/Zinc/Copper [Preservision Areds Softgel] 1 each PO BID 08/05/20 [History] Cetirizine HCl [Zyrtec] 10 mg PO DAILY 08/13/20 [History] Tramadol HCl 50 mg [Ultram 50 mg] 50 mg PO Q8HPRN PRN 08/13/20 [History] Hx Tetanus, Diphtheria Vaccination/Date Given: No Hx Influenza Vaccination/Date Given: Yes Hx Pneumococcal Vaccination/Date Given: Yes Immunizations Up to Date: Yes Travel Risk - International Travel Have you traveled outside of the country in past 3 weeks: No - Coronavirus Screening Are you exhibiting any of the following symptoms?: No Close contact with a COVID-19 positive Pt in past 14-21 Days: No - Vaccine Status Have you recieved a Covid-19 vaccination: Yes [employer]: Moderna - Vaccination Dates Date of 2cond Vaccination (if applicable): 2020 Comment: booster shot on 12/24/2021 - Review of Systems Constitutional: Fever, No Chills Eyes: No Symptoms Ears, Nose, & Throat: No Symptoms Respiratory: No Cough, No Dyspnea Cardiac: No Chest Pain, No Edema, No Syncope Abdominal/Gastrointestinal: No Abdominal Pain, No Nausea, No Vomiting, No Diarrhea Genitourinary Symptoms: No Dysuria Musculoskeletal: Back Pain, No Neck Pain Skin: No Rash Neurological: No Dizziness, No Focal Weakness, No Sensory Changes Psychological: No Symptoms Endocrine: No Symptoms All Other Systems: Reviewed and Negative - Past Medical History Pertinent Past Medical History: Yes Neurological History: TIA ENT History: Other Cardiac History: Arrhythmia, High Cholesterol, Hypertension Respiratory History: No Pertinent History Endocrine Medical History: Hypothyroidism, Other Musculoskeletal History: Arthritis GI Medical History: No Pertinent History History: No Pertinent History Psycho-Social History: No Pertinent History Male Reproductive Disorders: No Pertinent History Other Medical History: 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 inguinal hernia - Social History Smoking Status: Former smoker Exposure to second hand smoke: No Drug Use: none Patient Lives Alone: No - Nursing Vital Signs Nursing Vital Signs: Initial Vital Signs Temperature 99.7 F 12/25/21 09:31 Pulse Rate 71 12/25/21 09:31 Respiratory Rate 18 12/25/21 09:31 Blood Pressure 141/70 12/25/21 09:31 O2 Sat by Pulse Oximetry 98 12/25/21 09:31 Pain Scale Pain Intensity [Anterior/ 6 Posterior Generalized] Pain Intensity 6 - Physical Exam General Appearance: no apparent distress, alert Eye Exam: PERRL/EOMI, eyes nml inspection Ears, Nose, Throat Exam: normal ENT inspection, TMs normal, pharynx normal, moist mucous membranes Neck Exam: normal inspection, non-tender, supple, full range of motion Respiratory Exam: normal breath sounds, lungs clear, No respiratory distress Cardiovascular Exam: regular rate/rhythm, normal heart sounds, normal peripheral pulses Gastrointestinal/Abdomen Exam: soft, normal bowel sounds, No tenderness, No mass Back Exam: normal inspection, normal range of motion, No CVA tenderness, No vertebral tenderness Extremity Exam: normal inspection, normal range of motion, pelvis stable Neurologic Exam: alert, oriented x 3, cooperative, normal mood/affect, nml cerebellar function, nml station & gait, sensation nml, No motor deficits Skin Exam: normal color, warm, dry, No rash Lymphatic Exam: No adenopathy SpO2: 98 - Course Nursing assessment & vital signs reviewed: Yes Ordered Tests: Medication Summary Generic Name Dose Route Start Last Admin Trade Name Freq PRN Reason Stop Dose Admin Acetaminophen 1,000 mg 12/25/21 09:37 Acetaminophen 500 Mg Tablet PO 12/25/21 09:38 ONCE ONE - Progress Progress: improved, pain not gone completely Counseled pt/family regarding: diagnosis, need for follow-up - Departure Departure Disposition: Home 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 FDA Fact Sheet (12 years and older) Additional Instructions: Discharge/Care Plan BEATRIZ LEDESMA was seen on 12/25/21 in the Emergency Room. The patient was counseled regarding Diagnosis,Lab results, Imaging studies, need for follow up and when to return to the Emergency Room. Prescriptions given: Discharge Note I have spoken with the patient and/or caregivers. I have explained the patient's condition, diagnosis and treatment plan based on the information available to me at this time. I have answered the patient's and/or caregiver's questions and addressed any concerns. The patient and/or caregivers have as good understanding of the patient's diagnosis, condition and treatment plan as can be expected at this point. The vital signs have been stable. The patient's condition is stable and appropriate for discharge from the emergency department. The patient will pursue further outpatient evaluation with the primary care physician or other designated or consulting physician as outlined in the discharge instructions. The patient and/or caregivers are agreeable to this plan of care and follow-up instructions have been explained in detail. The patient and/or caregivers have received these instruction. The patient/and or caregivers are aware that any significant change in condition or worsening of symptoms should prompt an immediate return to this or the closest emergency department or call 911. BEATRIZ LEDESMA was seen on 12/25/21 n the Emergency Room. At that time you were treated for an emergent condition, during your visit Laboratory, Radiology and/or other procedures may have been ordered. It is very important that you follow-up with your Primary Care Physician ROB LIZAMA within the next 24-48 hours to review your Emergency Room visit and the final results of testing that was ordered. Some test results such as Urine Cultures, Blood Cultures, and other cultures if ordered will not be finalized for 24-48 hours. If you do not have a Primary Care Provider please call the medical records department at [phone] ext [phone] to obtain a copy of your results or you may sign into our patient portal to obtain these results by visiting us @ [email or web address] and completing the following steps: 1. Click on the Patient Portal link 2. Click the Patient Self Enrollment Link to complete the enrollment form and entering your 3. Once the enrollment form is completed you will receive an email with a temporary ID and password at the email address you provided. 4. Next choose a user name and password. Your user name must be at least 4 characters long and your password must be at least 4 characters long. 5. Choose a security question from the list and provide your answer to the question. If you already have signed into the Health Portal you may access your Health Care Information 06/02 by the following steps: 1. Login to our website @ [email or web address] 2. Enter your original user name and password. FAQS The [facility] Health Portal is an online tool that contains your Lab Results, Radiology Reports, Visit History, Discharge Instructions and Health Summary Lab and Radiology Results will not be available for 72 hours on the portal. The Portal is a secure site, passwords are encryted and URLs are re-written so they cannot be copied and pasted. You and authorized family members are the only ones who can access your Portal. Also there is a timeout feature that protects your information if you leave the Portal page open. If you have technical difficulty please use the Contact Us link on the page this will allow you to submit any questions you have regarding the Portal or you may contact the Medical Record Department at [phone] ext [phone].
[2021-12-25 11:07] VITALS: BP 147/76; PULSE 58; O2SAT 97
== END 2021-12-25 11:13 | disposition home or self-care (01) ==
LOC: ED 09:23
DX: R50.83 Postvaccination fever (principal); T50.B95A Adverse effect of other viral vaccines, initial encounter; M54.9 Dorsalgia, unspecified; M25.50 Pain in unspecified joint; E78.5 Hyperlipidemia, unspecified; I10 Essential (primary) hypertension; Z79.01 Long term (current) use of anticoagulants; Z79.891 Long term (current) use of opiate analgesic; Z79.899 Other long term (current) drug therapy
CPT/HCPCS: 96372; 99284; J1885; A9270-GY

== ENCOUNTER 2022-03-03 21:07 | Observation (INO) | payer MEDICARE ==
[2022-03-03] MEDS ORDERED: TYLENOL 325 MG PO ONE (21:33)
[2022-03-03] MEDS ORDERED: TYLENOL 325 MG ONE (21:37)
[2022-03-03] MEDS: Sodium Chloride 0.9% 1000 ML 1,000 ML IV SCH (21:40)
[2022-03-03 22:02] LABS: Absolute Neutrophil Ct (ANC) 7.33 x10^3/uL (1.4-6.9); Basophil (Absolute #) 0.06 x10^3/uL (0-0.4); Eosinophil % 0.8 % (0.00-5.0); Eosinophil (Absolute #) 0.08 x10^3/uL (0-0.5); Hematocrit 36.5 % (42-50); Hemoglobin 12.1 g/dL (12.5-18.0); Lymphocyte (Absolute #) 1.33 x10^3/uL (1.0-4.6); Lymphocytes % 13.8 % (24.0-44.0); Mean Cell Volume 90.6 fL (78-100); Mean Corpuscular Hgb Concent. 33.2 g/dL (32-36); Monocyte (Absolute #) 0.77 x10^3/uL (0.0-1.3); Neutrophil % 76.4 % (36.0-66.0); Platelet Count 206 x10^3/uL (150-450); Red Blood Count 4.03 x10^6/uL (4.1-5.6); Red Cell Distribution Width 13.1 % (11.5-14.0); White Blood Count 9.6 x10^3/uL (4.0-10.5)
[2022-03-03 22:11] LABS: Mucus SLIGHT /HPF (NEGATIVE)
[2022-03-03 22:12] LABS: Appearance CLEAR (CLEAR); Bilirubin NEGATIVE (NEGATIVE); Dipstick done @ ? MAIN LAB; Glucose NEGATIVE (NEGATIVE); Ketones NEGATIVE (NEGATIVE); Nitrite NEGATIVE (NEGATIVE); Ph 5.5 (5-6); Protein,Urine Dip NEGATIVE (Negative); RBC NEGATIVE Ery/ul (0-5); Urobilinogen 0.2 mg/dL (0-1)
[2022-03-03 22:15] LABS: ALBUMIN 4.6 g/dL (3.5-5.0); ANION GAP 12.3 MEQ/L (5-15); BILIRUBIN,TOTAL 0.9 mg/dL (0.2-1.3); Creatinine 1 1.83 mg/dL (0.66-1.25); EST GLOMERULAR FILTRATION RATE 37.6 ML/MIN; Potassium 3.8 mmol/L (3.5-5.1); Total Protein 7.5 g/dL (6.3-8.2)
[2022-03-03 22:25] LABS: MAGNESIUM 2.2 mg/dL (1.6-2.3)
[2022-03-03 22:30] LABS: Urine Cultured Indicated? NO
[2022-03-03 22:40] LABS: INFLUENZA A NEGATIVE (NEGATIVE); INFLUENZA B NEGATIVE (NEGATIVE); RESPIRATORY SYNCTIAL VIRUS NEGATIVE (Negative)
[2022-03-03] MEDS ORDERED: Zithromax 500 MG/ 250 ML NaCl Premix 500 MG/250 ML IVPB IV STA (22:43)
[2022-03-03] MEDS ORDERED: ROCEPHIN 2 Gm-D5w 50ML BAG** 2 G/50 ML IVPB IV STA (22:43)
[2022-03-03] MEDS ORDERED: ROCEPHIN 2 Gm-D5w 50ML BAG** 2 G/50 ML IVPB IV ONE (22:49)
[2022-03-03 22:51] LABS: SARS-CoV-2 Xpert Express POSITIVE (NEGATIVE)
[2022-03-03] MEDS ORDERED: DECADRON 10MG INJ. IV ONE (22:55)
[2022-03-03] MEDS ORDERED: REMDESIVIR 200 MG in Sodium Chloride 0.9% 250 ML 250 ML IV ONE (22:55)
[2022-03-03] MEDS ORDERED: Zithromax 500 MG/ 250 ML NaCl Premix 500 MG/250 ML IVPB IV ONE (23:10)
[2022-03-03] MEDS ORDERED: DECADRON 10MG INJ. ONE (23:12)
--- NOTE | 2022-03-03 23:18 | ERPHSYRPT ---
- History of Present Illness Time Seen by Provider: 03/03/22 21:14 Source: patient, family Exam Limitations: clinical condition Patient Subjective Stated Complaint: states "He is running a fever and has a cough." Triage Nursing Assessment: pt came into the er via wheelchair; pt is axo x2; c/o fever; dry hacking cough present; c/o headache; perico lower lobes diminished; hyperactive bowel sounds in all quads; fever of 102.2 oral; hypertensive Physician History: 86-year-old male with history of atrial fibrillation on Eliquis, hypertension, hypothyroidism presented to ER with sudden onset fever almost 3 hours ago. Patient also having off-and-on dry hacking cough since yesterday without any difficulty breathing. Denies any chest pain or palpitations. No abdominal pain nausea or vomiting. Patient temperature is 102 on presentation and is confused. Awake alert but not fully oriented. Not in apparent distress. History is limited and obtained from . 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 Associated Symptoms: confusion, cough, muscle aches, weakness (Generalized), No abdominal pain, No chest pain, No diaphoresis, No nausea/vomiting, No shortness of breath, No stiff neck, No syncope Allergies/Adverse Reactions: No Known Drug Allergies Allergy (Verified 03/03/22 21:15) Home Medications: Dronedarone HCl [Multaq] 400 mg PO BID 04/22/19 [History] Finasteride 5 mg PO HS 04/22/19 [History] Furosemide 40 mg PO BID 04/22/19 [History] Metoprolol Succinate 50 mg PO DAILY 04/22/19 [History] Tamsulosin HCl 0.4 mg PO BID 04/22/19 [History] Apixaban [Eliquis] 2.5 mg PO BID 11/04/19 [History] allopurinoL [Allopurinol] 300 mg PO HS 11/04/19 [History] Levothyroxine Sodium 100 Mcg [Synthroid 100 Mcg] 100 mcg PO DAILY 08/05/20 [History] Multivitamin with Folic Acid [One Daily Multivitamin Tablet] 400 mcg PO DAILY 08/05/20 [History] Polyethylene Glycol 3350 [Miralax] 17 gm PO DAILY PRN PRN 08/05/20 [History] Pramipexole Di-HCl [Mirapex] 0.5 mg PO BID 08/05/20 [History] Telmisartan 80 mg [Micardis 80 MG Tablet] 80 mg PO HS 08/05/20 [History] Vit A/Vit C/Vit E/Zinc/Copper [Preservision Areds Softgel] 1 each PO BID 08/05/20 [History] Cetirizine HCl [Zyrtec] 10 mg PO DAILY 08/13/20 [History] Tramadol HCl 50 mg [Ultram 50 mg] 50 mg PO Q8HPRN PRN 08/13/20 [History] Mirabegron [Myrbetriq] 50 mg PO DAILY 03/03/22 [History] Telmisartan/Hydrochlorothiazid [Micardis Hct 80-12.5 mg Tablet] 1 each PO DAILY 03/03/22 [History] Hx Tetanus, Diphtheria Vaccination/Date Given: No (unsure) Hx Influenza Vaccination/Date Given: Yes Hx Pneumococcal Vaccination/Date Given: Yes Travel Risk - International Travel Have you traveled outside of the country in past 3 weeks: No - Coronavirus Screening Are you exhibiting any of the following symptoms?: Yes Symptoms: Fever, Cough: New Onset - Vaccine Status Have you recieved a Covid-19 vaccination: Yes 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 - Vaccination Dates Date of 2cond Vaccination (if applicable): 2020 Comment: booster shot on 12/24/2021 - Review of Systems Constitutional: Fever, Chills, Fatigue, Weakness Eyes: No Symptoms Ears, Nose, & Throat: No Symptoms Respiratory: Cough Cardiac: No Symptoms Abdominal/Gastrointestinal: No Symptoms Genitourinary Symptoms: No Symptoms Musculoskeletal: Myalgias Skin: No Symptoms Neurological: No Symptoms Endocrine: No Symptoms Immunological/Allergic: No Symptoms - Past Medical History Pertinent Past Medical History: Yes Neurological History: TIA ENT History: Other Cardiac History: Arrhythmia, High Cholesterol, Hypertension Respiratory History: No Pertinent History Endocrine Medical History: Hypothyroidism, Other Musculoskeletal History: Arthritis GI Medical History: No Pertinent History History: No Pertinent History Psycho-Social History: No Pertinent History Male Reproductive Disorders: No Pertinent History Other Medical History: 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 inguinal hernia - Social History Smoking Status: Former smoker Exposure to second hand smoke: No Drug Use: none Patient Lives Alone: No - Nursing Vital Signs Nursing Vital Signs: Initial Vital Signs Temperature 102.2 F 03/03/22 21:15 Pulse Rate 78 03/03/22 21:15 Respiratory Rate 18 03/03/22 21:15 Blood Pressure 156/83 03/03/22 21:15 O2 Sat by Pulse Oximetry 95 03/03/22 21:15 Pain Scale Pain Intensity 4 - Physical Exam General Appearance: no apparent distress, alert Eye Exam: PERRL/EOMI, eyes nml inspection ENT Exam: normal ENT inspection, no apparent trauma, hearing grossly normal Neck Exam: normal inspection, non-tender, full range of motion Respiratory Exam: normal breath sounds, lungs clear Cardiovascular/Chest Exam: normal heart sounds, regular rate/rhythm Gastrointestinal/Abdominal Exam: soft, non tender, No no guarding Extremity Exam: non-tender, normal range of motion Neurologic Exam: 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, 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 tested, sensation nml, No oriented x 3, No normal mood/affect, No motor deficits Skin Exam: normal color SpO2 Interpretation: normal SpO2: 96 O2 Delivery: Room Air - Course EKG Interpreted by Me: RATE (75), Sinus Rhythm, NORMAL AXIS, NORMAL INTERVALS, NORMAL QRS Ordered Tests: Active Orders 24 hr Category Date Time Status EKG-ER Only STAT Care 03/03/22 21:33 Active IV Insertion STAT Care 03/03/22 21:33 Active CHEST 1 VIEW (PORTABLE) Stat Exams 03/03/22 21:47 Taken BLOOD CULTURE Stat Lab 03/03/22 21:50 Received BNP [NT PRO BNP] Stat Lab 03/03/22 21:45 Completed CBC W DIFF Stat Lab 03/03/22 21:45 Completed CMP Stat Lab 03/03/22 21:45 Completed Lactic Acid Stat Lab 03/03/22 21:33 Completed MAG [MAGNESIUM] Stat Lab 03/03/22 21:45 Completed PROCALCITONIN Stat Lab 03/03/22 21:45 Completed TROPONIN Q4H Lab 03/03/22 21:45 Completed TROPONIN Q4H Lab 03/04/22 01:45 Ordered TROPONIN Q4H Lab 03/04/22 05:45 Ordered UA W/RFX CULTURE Stat Lab 03/03/22 21:35 Completed Transfer Order Routine Transfer 03/03/22 Ordered Medication Summary Generic Name Dose Route Start Last Admin Trade Name Manolo PRN Reason Stop Dose Admin Sodium Chloride 1,000 mls @ 125 mls/hr 03/03/22 21:45 03/03/22 21:40 Sodium Chloride 0.9% 1000 Ml IV 04/02/22 21:44 125 mls/hr .Q8H REYNA Administration Azithromycin 500 mg in 250 mls @ 250 mls/hr 03/03/22 22:43 03/03/22 23:12 Zithromax 500 Mg/ 250 Ml Nacl Premix IV 03/03/22 23:42 250 mls/hr STAT STA 250 mls/hr Administration Remdesivir 200 mg/ Sodium 250 mls @ 125 mls/hr 03/03/22 22:55 Chloride IV 03/04/22 00:54 ONCE ONE Discontinued Medications Generic Name Dose Route Start Last Admin Trade Name Freq PRN Reason Stop Dose Admin Acetaminophen 975 mg 03/03/22 21:33 03/03/22 21:40 Acetaminophen 325 Mg Tablet PO 03/03/22 21:34 975 mg STAT ONE Administration Acetaminophen Confirm 03/03/22 21:37 Acetaminophen 325 Mg Tablet Administered 03/03/22 21:38 Dose 975 mg .ROUTE .STK-MED ONE Dexamethasone Sodium Phosphate 6 mg 03/03/22 22:55 03/03/22 23:12 Dexamethasone Sod Phosphate 10 Mg/Ml IV 03/03/22 22:56 6 mg STAT ONE Administration Dexamethasone Sodium Phosphate Confirm 03/03/22 23:12 Dexamethasone Sod Phosphate 10 Mg/Ml Administered 03/03/22 23:13 Dose 10 mg .ROUTE .STK-MED ONE Ceftriaxone Sodium/Dextrose 2 g in 50 mls @ 100 mls/hr 03/03/22 22:43 03/03/22 22:50 Rocephin 2 Gm-D5w 50ml Bag IV 03/03/22 23:12 100 ml/hr STAT STA 100 mls/hr Administration Ceftriaxone Sodium/Dextrose Confirm 03/03/22 22:49 Rocephin 2 Gm-D5w 50ml Bag Administered 03/03/22 22:50 Dose 2 g in 50 mls @ ud IV .STK-MED ONE Azithromycin Confirm 03/03/22 23:10 Zithromax 500 Mg/ 250 Ml Nacl Premix Administered 03/03/22 23:11 Dose 500 mg in 250 mls @ ud IV .STK-MED ONE Lab/Rad Data: Laboratory Result Diagrams 03/03/22 21:45 03/03/22 21:45 Laboratory Results 03/03/22 03/03/22 03/03/22 Range/Units 21:56 21:45 21:45 WBC (4.0-10.5) x10^3/uL RBC (4.1-5.6) x10^6/uL Hgb (12.5-18.0) g/dL Hct (42-50) % MCV (78-100) fL MCH (26-32) pg MCHC (32-36) g/dL RDW (11.5-14.0) % Plt Count (150-450) x10^3/uL MPV (7.5-11.0) fL Gran % (36.0-66.0) % Immature Gran % (Auto) (0.00-0.4) % Nucleat RBC Rel Count (0.00-0.1) % Eos # (Auto) (0-0.5) x10^3/uL Immature Gran # (Auto) (0.00-0.03) x10^3u/L Absolute Lymphs (auto) (1.0-4.6) x10^3/uL Absolute Monos (auto) (0.0-1.3) x10^3/uL Absolute Nucleated RBC (0.00-0.01) x10^3u/L Lymphocytes % (24.0-44.0) % Monocytes % (0.0-12.0) % Eosinophils % (0.00-5.0) % Basophils % (0.0-0.4) % Absolute Granulocytes (1.4-6.9) x10^3/uL Basophils # (0-0.4) x10^3/uL Sodium (137-145) mmol/L Potassium (3.5-5.1) mmol/L Chloride (98-107) mmol/L Carbon Dioxide (22-30) mmol/L Anion Gap (5-15) MEQ/L BUN (9-20) mg/dL Creatinine (0.66-1.25) mg/dL Estimated GFR ML/MIN Glucose (74-106) mg/dL Lactic Acid (0.4-2.0) Calcium (8.4-10.2) mg/dL Magnesium (1.6-2.3) mg/dL Total Bilirubin (0.2-1.3) mg/dL AST (17-59) U/L ALT (0-50) U/L Alkaline Phosphatase (38-126) U/L Troponin I < 0.012 (0.000-0.034) ng/mL NT-Pro-B Natriuret Pep (0-1800) pg/mL Serum Total Protein (6.3-8.2) g/dL Albumin (3.5-5.0) g/dL Procalcitonin 0.087 H (0.030-0.080) ng/mL Urinalys Dipstick Clnc Urine Color (YELLOW) Urine Appearance (CLEAR) Urine pH (5-6) Ur Specific [place] (1.005-1.025) POC Urine Protein Conf (Negative) Urine Ketones (NEGATIVE) Urine Nitrite (NEGATIVE) Urine Bilirubin (NEGATIVE) Urine Urobilinogen (0-1) mg/dL Urine Leukocytes (NEGATIVE) Urine WBC (Auto) (0-5) /HPF Urine RBC (Auto) (0-2) /HPF U Epithel Cells (Auto) (FEW) /HPF Urine Bacteria (Auto) (NEGATIVE) /HPF Urine RBC (0-5) Erich/ul Urine Mucus (Auto) (NEGATIVE) /HPF Ur Culture Indicated? Urine Glucose (NEGATIVE) mg/dL Influenza Type A Ag NEGATIVE (NEGATIVE) Influenza Type B Ag NEGATIVE (NEGATIVE) RSV (PCR) NEGATIVE (Negative) SARS-CoV-2 (PCR) POSITIVE A (NEGATIVE) 03/03/22 03/03/22 03/03/22 Range/Units 21:45 21:45 21:45 WBC 9.6 (4.0-10.5) x10^3/uL RBC 4.03 L (4.1-5.6) x10^6/uL Hgb 12.1 L (12.5-18.0) g/dL Hct 36.5 L (42-50) % MCV 90.6 (78-100) fL MCH 30.0 (26-32) pg MCHC 33.2 (32-36) g/dL RDW 13.1 (11.5-14.0) % Plt Count 206 (150-450) x10^3/uL MPV 10.0 (7.5-11.0) fL Gran % 76.4 H (36.0-66.0) % Immature Gran % (Auto) 0.4 (0.00-0.4) % Nucleat RBC Rel Count 0.0 (0.00-0.1) % Eos # (Auto) 0.08 (0-0.5) x10^3/uL Immature Gran # (Auto) 0.04 H (0.00-0.03) x10^3u/L Absolute Lymphs (auto) 1.33 (1.0-4.6) x10^3/uL Absolute Monos (auto) 0.77 (0.0-1.3) x10^3/uL Absolute Nucleated RBC 0.00 (0.00-0.01) x10^3u/L Lymphocytes % 13.8 L (24.0-44.0) % Monocytes % 8.0 (0.0-12.0) % Eosinophils % 0.8 (0.00-5.0) % Basophils % 0.6 (0.0-0.4) % Absolute Granulocytes 7.33 H (1.4-6.9) x10^3/uL Basophils # 0.06 (0-0.4) x10^3/uL Sodium 140 (137-145) mmol/L Potassium 3.8 (3.5-5.1) mmol/L Chloride 100 (98-107) mmol/L Carbon Dioxide 31 H (22-30) mmol/L Anion Gap 12.3 (5-15) MEQ/L BUN 41 H (9-20) mg/dL Creatinine 1.83 H (0.66-1.25) mg/dL Estimated GFR 37.6 ML/MIN Glucose 100 (74-106) mg/dL Lactic Acid (0.4-2.0) Calcium 9.0 (8.4-10.2) mg/dL Magnesium 2.2 (1.6-2.3) mg/dL Total Bilirubin 0.90 (0.2-1.3) mg/dL AST 27 (17-59) U/L ALT 20 (0-50) U/L Alkaline Phosphatase 105 (38-126) U/L Troponin I (0.000-0.034) ng/mL NT-Pro-B Natriuret Pep 500 (0-1800) pg/mL Serum Total Protein 7.5 (6.3-8.2) g/dL Albumin 4.6 (3.5-5.0) g/dL Procalcitonin (0.030-0.080) ng/mL Urinalys Dipstick Clnc Urine Color (YELLOW) Urine Appearance (CLEAR) Urine pH (5-6) Ur Specific [place] (1.005-1.025) POC Urine Protein Conf (Negative) Urine Ketones (NEGATIVE) Urine Nitrite (NEGATIVE) Urine Bilirubin (NEGATIVE) Urine Urobilinogen (0-1) mg/dL Urine Leukocytes (NEGATIVE) Urine WBC (Auto) (0-5) /HPF Urine RBC (Auto) (0-2) /HPF U Epithel Cells (Auto) (FEW) /HPF Urine Bacteria (Auto) (NEGATIVE) /HPF Urine RBC (0-5) Erich/ul Urine Mucus (Auto) (NEGATIVE) /HPF Ur Culture Indicated? Urine Glucose (NEGATIVE) mg/dL Influenza Type A Ag (NEGATIVE) Influenza Type B Ag (NEGATIVE) RSV (PCR) (Negative) SARS-CoV-2 (PCR) (NEGATIVE) 03/03/22 03/03/22 Range/Units 21:35 21:33 WBC (4.0-10.5) x10^3/uL RBC (4.1-5.6) x10^6/uL Hgb (12.5-18.0) g/dL Hct (42-50) % MCV (78-100) fL MCH (26-32) pg MCHC (32-36) g/dL RDW (11.5-14.0) % Plt Count (150-450) x10^3/uL MPV (7.5-11.0) fL Gran % (36.0-66.0) % Immature Gran % (Auto) (0.00-0.4) % Nucleat RBC Rel Count (0.00-0.1) % Eos # (Auto) (0-0.5) x10^3/uL Immature Gran # (Auto) (0.00-0.03) x10^3u/L Absolute Lymphs (auto) (1.0-4.6) x10^3/uL Absolute Monos (auto) (0.0-1.3) x10^3/uL Absolute Nucleated RBC (0.00-0.01) x10^3u/L Lymphocytes % (24.0-44.0) % Monocytes % (0.0-12.0) % Eosinophils % (0.00-5.0) % Basophils % (0.0-0.4) % Absolute Granulocytes (1.4-6.9) x10^3/uL Basophils # (0-0.4) x10^3/uL Sodium (137-145) mmol/L Potassium (3.5-5.1) mmol/L Chloride (98-107) mmol/L Carbon Dioxide (22-30) mmol/L Anion Gap (5-15) MEQ/L BUN (9-20) mg/dL Creatinine (0.66-1.25) mg/dL Estimated GFR ML/MIN Glucose (74-106) mg/dL Lactic Acid 1.2 (0.4-2.0) Calcium (8.4-10.2) mg/dL Magnesium (1.6-2.3) mg/dL Total Bilirubin (0.2-1.3) mg/dL AST (17-59) U/L ALT (0-50) U/L Alkaline Phosphatase (38-126) U/L Troponin I (0.000-0.034) ng/mL NT-Pro-B Natriuret Pep (0-1800) pg/mL Serum Total Protein (6.3-8.2) g/dL Albumin (3.5-5.0) g/dL Procalcitonin (0.030-0.080) ng/mL Urinalys Dipstick Clnc MAIN LAB Urine Color YELLOW (YELLOW) Urine Appearance CLEAR (CLEAR) Urine pH 5.5 (5-6) Ur Specific [place] 1.020 (1.005-1.025) POC Urine Protein Conf NEGATIVE (Negative) Urine Ketones NEGATIVE (NEGATIVE) Urine Nitrite NEGATIVE (NEGATIVE) Urine Bilirubin NEGATIVE (NEGATIVE) Urine Urobilinogen 0.2 (0-1) mg/dL Urine Leukocytes NEGATIVE (NEGATIVE) Urine WBC (Auto) NONE (0-5) /HPF Urine RBC (Auto) NONE (0-2) /HPF U Epithel Cells (Auto) NONE (FEW) /HPF Urine Bacteria (Auto) NONE (NEGATIVE) /HPF Urine RBC NEGATIVE (0-5) Erich/ul Urine Mucus (Auto) SLIGHT (NEGATIVE) /HPF Ur Culture Indicated? NO Urine Glucose NEGATIVE (NEGATIVE) mg/dL Influenza Type A Ag (NEGATIVE) Influenza Type B Ag (NEGATIVE) RSV (PCR) (Negative) SARS-CoV-2 (PCR) (NEGATIVE) - Progress Progress: improved, re-examined Progress Note: 03/03/22 23:16 86 years old is evaluated for fever and cough. Patient is not in any distress on presentation but confused and has a temperature of 102. He is given Tylenol and gentle hydration. Work-up showed normal white count and lactate. Chest x- ray I do not see any obvious infiltrative process. Patient has elevated procalcitonin and has given a dose of Rocephin and Zithromax. No UTI. Chemistr y profile showed CKD with a creatinine of 1.8 which is a little worse than baseline 1.6. Patient has a positive COVID-19, given Decadron and remdesivir. On reevaluation patient is feeling much better and more alert and oriented. Temperature is improved. Discussed with family about need for admission and they agree with it. Discussed with Dr. Collado and patient is accepted for admission. 03/03/22 23:21 Discussed with : Lisa Will see patient in: hospital (observation) Counseled pt/family regarding: lab results, diagnosis, rad results - Departure Departure Disposition: Observation Clinical Impression: COVID-19 virus detected, Sepsis, Fever, Altered mental status Condition: Stable Critical Care Time: No Referrals: ROB LIZAMA MD [Primary Care Provider] - Follow up/PCP as directed
[2022-03-04] MEDS ORDERED: REMDESIVIR 100 MG in Sodium Chloride 100ML MINI-BAG PLUS 100 ML IV SCH (00:14)
[2022-03-04] MEDS ORDERED: TYLENOL 325 MG PO PRN (00:14)
[2022-03-04] MEDS ORDERED: DUONEB 0.5-3 MG/3 ml Neb IH PRN (00:14)
[2022-03-04] MEDS ORDERED: Zofran 4 MG/2 ML VIAL IV PRN (00:14)
[2022-03-04 05:55] LABS: Absolute Neutrophil Ct (ANC) 6.32 x10^3/uL (1.4-6.9); Basophil (Absolute #) 0.02 x10^3/uL (0-0.4); Eosinophil % 0.1 % (0.00-5.0); Eosinophil (Absolute #) 0.01 x10^3/uL (0-0.5); Hemoglobin 12.1 g/dL (12.5-18.0); Lymphocyte (Absolute #) 1.02 x10^3/uL (1.0-4.6); Lymphocytes % 13.5 % (24.0-44.0); Mean Cell Volume 90.9 fL (78-100); Mean Corpuscular Hemoglobin 29.7 pg (26-32); Mean Corpuscular Hgb Concent. 32.7 g/dL (32-36); Mean Platelet Volume 9.8 fL (7.5-11.0); Monocyte (Absolute #) 0.15 x10^3/uL (0.0-1.3); Neutrophil % 83.6 % (36.0-66.0); Platelet Count 182 x10^3/uL (150-450); Red Blood Count 4.07 x10^6/uL (4.1-5.6); Red Cell Distribution Width 13.2 % (11.5-14.0); White Blood Count 7.6 x10^3/uL (4.0-10.5)
[2022-03-04 06:08] LABS: ALBUMIN 4.4 g/dL (3.5-5.0); BILIRUBIN,TOTAL 0.6 mg/dL (0.2-1.3); Calcium 8.6 mg/dL (8.4-10.2); Creatinine 1 1.69 mg/dL (0.66-1.25); EST GLOMERULAR FILTRATION RATE 41.2 ML/MIN; PREALBUMIN 19.33 mg/dL (17.6-36.0); Potassium 3.6 mmol/L (3.5-5.1); Total Protein 7.2 g/dL (6.3-8.2)
[2022-03-04] MEDS: Sodium Chloride 0.9% 1000 ML 1,000 ML IV SCH (07:32)
--- NOTE | 2022-03-04 08:36 | XRAY ---
Indication: Fever and cough. Suspect Covid 19. Comparison: November 04, 2019 Portable apical lordotic less inflated and remains clear again with incidental left infrahilar calcified granulomas. Heart not enlarged. Bony thorax intact again with osteopenia and degenerative changes. No new/acute findings.
--- NOTE | 2022-03-04 08:45 | PCM.HP ---
History of Present Illness - Chief Complaint Chief Complaint: COVID-19 detected History of Present Illness: is a 86 year old male who presented to the ER with a cough and fever, he started with symptoms the day before arrival then developed fever just prior to arrival, hacking nonproductive cough and feels like there is some phlegm in his throat. he does not feel short of breath. - Review of Systems Constitutional: Fever, Chills, Weakness Eyes: No Symptoms Ears, Nose, & Throat: No Symptoms Respiratory: Cough, No Short Of Breath Cardiac: No Chest Pain, No Edema, No Syncope Abdominal/Gastrointestinal: No Abdominal Pain, No Nausea, No Vomiting, No Diarrhea Genitourinary Symptoms: No Dysuria Skin: No Rash Neurological: No Dizziness, No Focal Weakness, No Sensory Changes Psychological: No Symptoms All Other Systems: Reviewed and Negative Medications & Allergies Home Medications: Home Medication List Dronedarone HCl [Multaq] 400 mg PO BID 04/22/19 [History Confirmed 03/03/22] Finasteride 5 mg PO HS 04/22/19 [History Confirmed 03/03/22] Furosemide 40 mg PO BID 04/22/19 [History Confirmed 03/03/22] Metoprolol Succinate 50 mg PO DAILY 04/22/19 [History Confirmed 03/03/22] Tamsulosin HCl 0.4 mg PO BID 04/22/19 [History Confirmed 03/03/22] Apixaban [Eliquis] 2.5 mg PO BID 11/04/19 [History Confirmed 03/03/22] allopurinoL [Allopurinol] 300 mg PO HS 11/04/19 [History Confirmed 03/03/22] Levothyroxine Sodium 100 Mcg [Synthroid 100 Mcg] 100 mcg PO DAILY 08/05/20 [History Confirmed 03/03/22] Multivitamin with Folic Acid [One Daily Multivitamin Tablet] 400 mcg PO DAILY 08/05/20 [History Confirmed 03/03/22] Polyethylene Glycol 3350 [Miralax] 17 gm PO DAILY PRN PRN 08/05/20 [History Confirmed 03/03/22] Pramipexole Di-HCl [Mirapex] 0.5 mg PO BID 08/05/20 [History Confirmed 03/03/22] Telmisartan 80 mg [Micardis 80 MG Tablet] 80 mg PO HS 08/05/20 [History Confirmed 03/03/22] Vit A/Vit C/Vit E/Zinc/Copper [Preservision Areds Softgel] 1 each PO BID 08/05/20 [History Confirmed 03/03/22] Cetirizine HCl [Zyrtec] 10 mg PO DAILY 08/13/20 [History Confirmed 03/03/22] Tramadol HCl 50 mg [Ultram 50 mg] 50 mg PO Q8HPRN PRN 08/13/20 [History Confirmed 03/03/22] Mirabegron [Myrbetriq] 50 mg PO DAILY 03/03/22 [History Confirmed 03/03/22] Telmisartan/Hydrochlorothiazid [Micardis Hct 80-12.5 mg Tablet] 1 each PO DAILY 03/03/22 [History Confirmed 03/03/22] Allergies/Adverse Reactions: Allergies Allergy/AdvReac Type Severity Reaction Status Date / Time No Known Drug Allergies Allergy Verified 03/03/22 21:15 - Past Medical History Past Medical History: Yes Neurological History: TIA ENT History: Other Cardiac History: Arrhythmia, High Cholesterol, Hypertension Respiratory History: No Pertinent History Endocrine Medical History: Hypothyroidism, Other Musculoskelatal History: Arthritis GI Medical History: No Pertinent History History: No Pertinent History Pyscho-Social History: No Pertinent History Male Reproductive Disorders: No Pertinent History Comment: 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 inguinal hernia - Social History Smoking Status: Former smoker Exposure to second hand smoke: No Alcohol: None Drug Use: none - Physical Exam Vital Signs: Vital Signs - 24 hr Temp Pulse Resp BP Pulse Ox 03/04/22 08:00 97.5 F 74 16 157/70 97 03/04/22 07:50 90 22 96 03/04/22 07:33 18 03/04/22 05:48 68 18 90 L 03/04/22 04:10 97.7 F 68 20 123/60 95 03/04/22 03:42 61 20 94 L 03/04/22 03:25 98.4 F 66 20 136/84 94 L 03/04/22 03:05 65 16 95 03/04/22 02:00 98.4 F 66 20 94 L 03/04/22 00:00 76 104/50 97 03/03/22 23:22 96 03/03/22 23:00 74 118/56 96 03/03/22 22:10 100.5 F 72 16 122/61 95 03/03/22 21:15 102.2 F 78 18 156/83 95 General Appearance: no apparent distress Neurologic Exam: alert, cooperative Respiratory Exam: rhonchi Cardiovascular Exam: regular rate/rhythm, normal heart sounds, normal peripheral pulses Gastrointestinal/Abdomen Exam: soft, normal bowel sounds, No tenderness, No mass Extremity Exam: normal inspection, normal range of motion, pelvis stable Skin Exam: normal color, warm, dry, No rash Results - Labs Lab/Micro Results: Lab Results-Last 24 Hours 03/03/22 03/03/22 03/03/22 Range/Units 21:33 21:35 21:45 WBC 9.6 (4.0-10.5) x10^3/uL RBC 4.03 L (4.1-5.6) x10^6/uL Hgb 12.1 L (12.5-18.0) g/dL Hct 36.5 L (42-50) % MCV 90.6 (78-100) fL MCH 30.0 (26-32) pg MCHC 33.2 (32-36) g/dL RDW 13.1 (11.5-14.0) % Plt Count 206 (150-450) x10^3/uL MPV 10.0 (7.5-11.0) fL Gran % 76.4 H (36.0-66.0) % Immature Gran % (Auto) 0.4 (0.00-0.4) % Nucleat RBC Rel Count 0.0 (0.00-0.1) % Eos # (Auto) 0.08 (0-0.5) x10^3/uL Immature Gran # (Auto) 0.04 H (0.00-0.03) x10^3u/L Absolute Lymphs (auto) 1.33 (1.0-4.6) x10^3/uL Absolute Monos (auto) 0.77 (0.0-1.3) x10^3/uL Absolute Nucleated RBC 0.00 (0.00-0.01) x10^3u/L Lymphocytes % 13.8 L (24.0-44.0) % Monocytes % 8.0 (0.0-12.0) % Eosinophils % 0.8 (0.00-5.0) % Basophils % 0.6 (0.0-0.4) % Absolute Granulocytes 7.33 H (1.4-6.9) x10^3/uL Basophils # 0.06 (0-0.4) x10^3/uL Sodium (137-145) mmol/L Potassium (3.5-5.1) mmol/L Chloride (98-107) mmol/L Carbon Dioxide (22-30) mmol/L Anion Gap (5-15) MEQ/L BUN (9-20) mg/dL Creatinine (0.66-1.25) mg/dL Estimated GFR ML/MIN Glucose (74-106) mg/dL Lactic Acid 1.2 (0.4-2.0) Calcium (8.4-10.2) mg/dL Magnesium (1.6-2.3) mg/dL Total Bilirubin (0.2-1.3) mg/dL AST (17-59) U/L ALT (0-50) U/L Alkaline Phosphatase (38-126) U/L Troponin I (0.000-0.034) ng/mL NT-Pro-B Natriuret Pep (0-1800) pg/mL Serum Total Protein (6.3-8.2) g/dL Albumin (3.5-5.0) g/dL Prealbumin (17.6-36.0) mg/dL Procalcitonin (0.030-0.080) ng/mL Urinalys Dipstick Clnc MAIN LAB Urine Color YELLOW (YELLOW) Urine Appearance CLEAR (CLEAR) Urine pH 5.5 (5-6) Ur Specific [place] 1.020 (1.005-1.025) POC Urine Protein Conf NEGATIVE (Negative) Urine Ketones NEGATIVE (NEGATIVE) Urine Nitrite NEGATIVE (NEGATIVE) Urine Bilirubin NEGATIVE (NEGATIVE) Urine Urobilinogen 0.2 (0-1) mg/dL Urine Leukocytes NEGATIVE (NEGATIVE) Urine WBC (Auto) NONE (0-5) /HPF Urine RBC (Auto) NONE (0-2) /HPF U Epithel Cells (Auto) NONE (FEW) /HPF Urine Bacteria (Auto) NONE (NEGATIVE) /HPF Urine RBC NEGATIVE (0-5) Erich/ul Urine Mucus (Auto) SLIGHT (NEGATIVE) /HPF Ur Culture Indicated? NO Urine Glucose NEGATIVE (NEGATIVE) mg/dL Influenza Type A Ag (NEGATIVE) Influenza Type B Ag (NEGATIVE) RSV (PCR) (Negative) SARS-CoV-2 (PCR) (NEGATIVE) 03/03/22 03/03/22 03/03/22 Range/Units 21:45 21:45 21:45 WBC (4.0-10.5) x10^3/uL RBC (4.1-5.6) x10^6/uL Hgb (12.5-18.0) g/dL Hct (42-50) % MCV (78-100) fL MCH (26-32) pg MCHC (32-36) g/dL RDW (11.5-14.0) % Plt Count (150-450) x10^3/uL MPV (7.5-11.0) fL Gran % (36.0-66.0) % Immature Gran % (Auto) (0.00-0.4) % Nucleat RBC Rel Count (0.00-0.1) % Eos # (Auto) (0-0.5) x10^3/uL Immature Gran # (Auto) (0.00-0.03) x10^3u/L Absolute Lymphs (auto) (1.0-4.6) x10^3/uL Absolute Monos (auto) (0.0-1.3) x10^3/uL Absolute Nucleated RBC (0.00-0.01) x10^3u/L Lymphocytes % (24.0-44.0) % Monocytes % (0.0-12.0) % Eosinophils % (0.00-5.0) % Basophils % (0.0-0.4) % Absolute Granulocytes (1.4-6.9) x10^3/uL Basophils # (0-0.4) x10^3/uL Sodium 140 (137-145) mmol/L Potassium 3.8 (3.5-5.1) mmol/L Chloride 100 (98-107) mmol/L Carbon Dioxide 31 H (22-30) mmol/L Anion Gap 12.3 (5-15) MEQ/L BUN 41 H (9-20) mg/dL Creatinine 1.83 H (0.66-1.25) mg/dL Estimated GFR 37.6 ML/MIN Glucose 100 (74-106) mg/dL Lactic Acid (0.4-2.0) Calcium 9.0 (8.4-10.2) mg/dL Magnesium 2.2 (1.6-2.3) mg/dL Total Bilirubin 0.90 (0.2-1.3) mg/dL AST 27 (17-59) U/L ALT 20 (0-50) U/L Alkaline Phosphatase 105 (38-126) U/L Troponin I < 0.012 (0.000-0.034) ng/mL NT-Pro-B Natriuret Pep 500 (0-1800) pg/mL Serum Total Protein 7.5 (6.3-8.2) g/dL Albumin 4.6 (3.5-5.0) g/dL Prealbumin (17.6-36.0) mg/dL Procalcitonin (0.030-0.080) ng/mL Urinalys Dipstick Clnc Urine Color (YELLOW) Urine Appearance (CLEAR) Urine pH (5-6) Ur Specific [place] (1.005-1.025) POC Urine Protein Conf (Negative) Urine Ketones (NEGATIVE) Urine Nitrite (NEGATIVE) Urine Bilirubin (NEGATIVE) Urine Urobilinogen (0-1) mg/dL Urine Leukocytes (NEGATIVE) Urine WBC (Auto) (0-5) /HPF Urine RBC (Auto) (0-2) /HPF U Epithel Cells (Auto) (FEW) /HPF Urine Bacteria (Auto) (NEGATIVE) /HPF Urine RBC (0-5) Erich/ul Urine Mucus (Auto) (NEGATIVE) /HPF Ur Culture Indicated? Urine Glucose (NEGATIVE) mg/dL Influenza Type A Ag (NEGATIVE) Influenza Type B Ag (NEGATIVE) RSV (PCR) (Negative) SARS-CoV-2 (PCR) (NEGATIVE) 03/03/22 03/03/22 03/04/22 Range/Units 21:45 21:56 01:45 WBC (4.0-10.5) x10^3/uL RBC (4.1-5.6) x10^6/uL Hgb (12.5-18.0) g/dL Hct (42-50) % MCV (78-100) fL MCH (26-32) pg MCHC (32-36) g/dL RDW (11.5-14.0) % Plt Count (150-450) x10^3/uL MPV (7.5-11.0) fL Gran % (36.0-66.0) % Immature Gran % (Auto) (0.00-0.4) % Nucleat RBC Rel Count (0.00-0.1) % Eos # (Auto) (0-0.5) x10^3/uL Immature Gran # (Auto) (0.00-0.03) x10^3u/L Absolute Lymphs (auto) (1.0-4.6) x10^3/uL Absolute Monos (auto) (0.0-1.3) x10^3/uL Absolute Nucleated RBC (0.00-0.01) x10^3u/L Lymphocytes % (24.0-44.0) % Monocytes % (0.0-12.0) % Eosinophils % (0.00-5.0) % Basophils % (0.0-0.4) % Absolute Granulocytes (1.4-6.9) x10^3/uL Basophils # (0-0.4) x10^3/uL Sodium (137-145) mmol/L Potassium (3.5-5.1) mmol/L Chloride (98-107) mmol/L Carbon Dioxide (22-30) mmol/L Anion Gap (5-15) MEQ/L BUN (9-20) mg/dL Creatinine (0.66-1.25) mg/dL Estimated GFR ML/MIN Glucose (74-106) mg/dL Lactic Acid (0.4-2.0) Calcium (8.4-10.2) mg/dL Magnesium (1.6-2.3) mg/dL Total Bilirubin (0.2-1.3) mg/dL AST (17-59) U/L ALT (0-50) U/L Alkaline Phosphatase (38-126) U/L Troponin I 0.016 (0.000-0.034) ng/mL NT-Pro-B Natriuret Pep (0-1800) pg/mL Serum Total Protein (6.3-8.2) g/dL Albumin (3.5-5.0) g/dL Prealbumin (17.6-36.0) mg/dL Procalcitonin 0.087 H (0.030-0.080) ng/mL Urinalys Dipstick Clnc Urine Color (YELLOW) Urine Appearance (CLEAR) Urine pH (5-6) Ur Specific [place] (1.005-1.025) POC Urine Protein Conf (Negative) Urine Ketones (NEGATIVE) Urine Nitrite (NEGATIVE) Urine Bilirubin (NEGATIVE) Urine Urobilinogen (0-1) mg/dL Urine Leukocytes (NEGATIVE) Urine WBC (Auto) (0-5) /HPF Urine RBC (Auto) (0-2) /HPF U Epithel Cells (Auto) (FEW) /HPF Urine Bacteria (Auto) (NEGATIVE) /HPF Urine RBC (0-5) Erich/ul Urine Mucus (Auto) (NEGATIVE) /HPF Ur Culture Indicated? Urine Glucose (NEGATIVE) mg/dL Influenza Type A Ag NEGATIVE (NEGATIVE) Influenza Type B Ag NEGATIVE (NEGATIVE) RSV (PCR) NEGATIVE (Negative) SARS-CoV-2 (PCR) POSITIVE A (NEGATIVE) 03/04/22 03/04/22 03/04/22 Range/Units 05:40 05:40 05:40 WBC 7.6 (4.0-10.5) x10^3/uL RBC 4.07 L (4.1-5.6) x10^6/uL Hgb 12.1 L (12.5-18.0) g/dL Hct 37.0 L (42-50) % MCV 90.9 (78-100) fL MCH 29.7 (26-32) pg MCHC 32.7 (32-36) g/dL RDW 13.2 (11.5-14.0) % Plt Count 182 (150-450) x10^3/uL MPV 9.8 (7.5-11.0) fL Gran % 83.6 H (36.0-66.0) % Immature Gran % (Auto) 0.5 H (0.00-0.4) % Nucleat RBC Rel Count 0.0 (0.00-0.1) % Eos # (Auto) 0.01 (0-0.5) x10^3/uL Immature Gran # (Auto) 0.04 H (0.00-0.03) x10^3u/L Absolute Lymphs (auto) 1.02 (1.0-4.6) x10^3/uL Absolute Monos (auto) 0.15 (0.0-1.3) x10^3/uL Absolute Nucleated RBC 0.00 (0.00-0.01) x10^3u/L Lymphocytes % 13.5 L (24.0-44.0) % Monocytes % 2.0 (0.0-12.0) % Eosinophils % 0.1 (0.00-5.0) % Basophils % 0.3 (0.0-0.4) % Absolute Granulocytes 6.32 (1.4-6.9) x10^3/uL Basophils # 0.02 (0-0.4) x10^3/uL Sodium 141 (137-145) mmol/L Potassium 3.6 (3.5-5.1) mmol/L Chloride 102 (98-107) mmol/L Carbon Dioxide 30 (22-30) mmol/L Anion Gap 13.0 (5-15) MEQ/L BUN 40 H (9-20) mg/dL Creatinine 1.69 H (0.66-1.25) mg/dL Estimated GFR 41.2 ML/MIN Glucose 166 H (74-106) mg/dL Lactic Acid (0.4-2.0) Calcium 8.6 (8.4-10.2) mg/dL Magnesium (1.6-2.3) mg/dL Total Bilirubin 0.60 (0.2-1.3) mg/dL AST 29 (17-59) U/L ALT 22 (0-50) U/L Alkaline Phosphatase 97 (38-126) U/L Troponin I < 0.012 (0.000-0.034) ng/mL NT-Pro-B Natriuret Pep (0-1800) pg/mL Serum Total Protein 7.2 (6.3-8.2) g/dL Albumin 4.4 (3.5-5.0) g/dL Prealbumin 19.33 (17.6-36.0) mg/dL Procalcitonin (0.030-0.080) ng/mL Urinalys Dipstick Clnc Urine Color (YELLOW) Urine Appearance (CLEAR) Urine pH (5-6) Ur Specific [place] (1.005-1.025) POC Urine Protein Conf (Negative) Urine Ketones (NEGATIVE) Urine Nitrite (NEGATIVE) Urine Bilirubin (NEGATIVE) Urine Urobilinogen (0-1) mg/dL Urine Leukocytes (NEGATIVE) Urine WBC (Auto) (0-5) /HPF Urine RBC (Auto) (0-2) /HPF U Epithel Cells (Auto) (FEW) /HPF Urine Bacteria (Auto) (NEGATIVE) /HPF Urine RBC (0-5) Erich/ul Urine Mucus (Auto) (NEGATIVE) /HPF Ur Culture Indicated? Urine Glucose (NEGATIVE) mg/dL Influenza Type A Ag (NEGATIVE) Influenza Type B Ag (NEGATIVE) RSV (PCR) (Negative) SARS-CoV-2 (PCR) (NEGATIVE) - Radiology Impressions Radiology Exams & Impressions: Radiology Procedures Category Date Time Status CHEST 1 VIEW (PORTABLE) Stat Exams 03/03/22 21:47 Completed - Other Procedures and Tests Respiratory Therapy 03/04/22 03:48 Respiratory Therapy Assessment DAILY Assessment/Plan (1) COVID-19 virus detected Current Visit: Yes Status: Acute Assessment & Plan: continue remdesivir, dexamethasone and supportive care. currently on room air and stable. on eliquis for a fib, will continue Code(s): U07.1 - COVID-19 (2) Atrial fibrillation Current Visit: Yes Status: Acute Assessment & Plan: routine meds including metoprolol, eliquis and multaq. currently stable Code(s): I48.91 - UNSPECIFIED ATRIAL FIBRILLATION (3) Fever Current Visit: Yes Status: Acute Assessment & Plan: no obvious infiltrate on chest xray, wbc normal suggestive of viral etiology. blood cultures are pending, continue rocephin and zithromax for now until repeat procalcitonin and cultures return Code(s): R50.9 - FEVER, UNSPECIFIED
[2022-03-04] MEDS ORDERED: ULTRAM 50 MG PO PRN (09:45)
[2022-03-04] MEDS: Toprol Xl 50 MG PO SCH (09:58)
[2022-03-04] MEDS: DECADRON 10MG INJ. IV SCH (09:58)
[2022-03-04] MEDS: Flomax 0.4 MG PO SCH ×2 (09:58→23:24)
[2022-03-04] MEDS: Lasix 40 MG PO SCH ×2 (09:58→16:09)
[2022-03-04] MEDS: Mirapex 0.5 MG Tablet PO SCH ×2 (09:58→23:24)
[2022-03-04] MEDS: Pepcid 20 MG VIAL IV SCH ×2 (09:58→23:23)
[2022-03-04] MEDS: SYNTHROID 100 MCG PO SCH (09:58)
[2022-03-04] MEDS: ELIQUIS 2.5 MG TABLET PO SCH ×2 (09:58→23:24)
[2022-03-04] MEDS: MYRBETRIQ PO SCH (09:58)
[2022-03-04] MEDS ORDERED: NON-FORMULARY ITEM (Mirabegron [Myrbetriq] 50 MG Tab.Er.24h) PO SCH (10:00)
[2022-03-04] MEDS ORDERED: APIXABAN PO SCH (10:00)
[2022-03-04] MEDS ORDERED: [UNRECOGNIZED DRUG - OTHER] PO SCH (10:00)
[2022-03-04] MEDS: hydroDIURIL 25 MG PO SCH (10:38)
[2022-03-04] MEDS: Multaq 400 MG PO SCH ×2 (10:38→23:24)
[2022-03-04] MEDS: Micardis 80 MG Tablet PO SCH ×2 (10:38→23:24)
[2022-03-04] MEDS ORDERED: Zithromax 500 MG/ 250 ML NaCl Premix 500 MG/250 ML IVPB IV SCH (22:00)
[2022-03-04] MEDS: ROCEPHIN 1 Gm-D5w 50 ml Bag** 1 G/50 ML IVPB IV SCH (23:23)
[2022-03-04] MEDS: REMDESIVIR 100 MG in Sodium Chloride 100ML MINI-BAG PLUS 100 ML IV SCH (23:23)
[2022-03-04] MEDS: ZYLOPRIM 300 MG PO SCH (23:24)
[2022-03-04] MEDS: Proscar 5 MG PO SCH (23:25)
[2022-03-05] MEDS ORDERED: REMDESIVIR 100 MG in Sodium Chloride 100ML MINI-BAG PLUS 100 ML IV SCH ×2
[2022-03-05 06:05] LABS: Absolute Neutrophil Ct (ANC) 11.25 x10^3/uL (1.4-6.9); Basophil (Absolute #) 0.01 x10^3/uL (0-0.4); Eosinophil (Absolute #) 0 x10^3/uL (0-0.5); Hematocrit 32.3 % (42-50); Hemoglobin 10.6 g/dL (12.5-18.0); Lymphocyte (Absolute #) 1.23 x10^3/uL (1.0-4.6); Lymphocytes % 9.2 % (24.0-44.0); Mean Cell Volume 90.5 fL (78-100); Mean Corpuscular Hemoglobin 29.7 pg (26-32); Mean Corpuscular Hgb Concent. 32.8 g/dL (32-36); Mean Platelet Volume 9.8 fL (7.5-11.0); Monocyte (Absolute #) 0.72 x10^3/uL (0.0-1.3); Monocytes % 5.4 % (0.0-12.0); Neutrophil % 84.5 % (36.0-66.0); Platelet Count 169 x10^3/uL (150-450); Red Blood Count 3.57 x10^6/uL (4.1-5.6); Red Cell Distribution Width 12.9 % (11.5-14.0); White Blood Count 13.3 x10^3/uL (4.0-10.5)
[2022-03-05 06:47] LABS: ANION GAP 13.6 MEQ/L (5-15); Calcium 8.1 mg/dL (8.4-10.2); Creatinine 1 1.44 mg/dL (0.66-1.25); EST GLOMERULAR FILTRATION RATE 49.6 ML/MIN; MAGNESIUM 2.3 mg/dL (1.6-2.3); PROCALCITONIN 0.108 ng/mL (0.030-0.080); Potassium 3.5 mmol/L (3.5-5.1)
[2022-03-05] MEDS: Mirapex 0.5 MG Tablet PO SCH ×2 (09:09→23:14)
[2022-03-05] MEDS: MYRBETRIQ PO SCH (09:09)
[2022-03-05] MEDS: Multaq 400 MG PO SCH (09:09)
[2022-03-05] MEDS: Toprol Xl 50 MG PO SCH (09:09)
[2022-03-05] MEDS: Lasix 40 MG PO SCH ×2 (09:09→16:44)
[2022-03-05] MEDS: Flomax 0.4 MG PO SCH (09:09)
[2022-03-05] MEDS: Micardis 80 MG Tablet PO SCH (09:09)
[2022-03-05] MEDS: SYNTHROID 100 MCG PO SCH (09:09)
[2022-03-05] MEDS: hydroDIURIL 25 MG PO SCH (09:10)
[2022-03-05] MEDS: Pepcid 20 MG VIAL IV SCH (09:10)
[2022-03-05] MEDS: ELIQUIS 2.5 MG TABLET PO SCH (09:10)
[2022-03-05] MEDS: DECADRON 10MG INJ. IV SCH (09:14)
[2022-03-05] MEDS ORDERED: Ativan 0.5 MG PO ONE (11:52)
[2022-03-05] MEDS: ROCEPHIN 1 Gm-D5w 50 ml Bag** 1 G/50 ML IVPB IV SCH (12:05)
--- NOTE | 2022-03-05 14:10 | PCM.DCORD ---
- Discharge Disposition: Home, Self-Care Condition: Stable Prescriptions: New Methylprednisolone 4 mg [Medrol 4 mg] 4 mg PO UD #21 tablet No Action Tamsulosin HCl 0.4 mg PO BID Metoprolol Succinate 50 mg PO DAILY Furosemide 40 mg PO BID Finasteride 5 mg PO HS Dronedarone HCl [Multaq] 400 mg PO BID allopurinoL [Allopurinol] 300 mg PO HS Apixaban [Eliquis] 2.5 mg PO BID Multivitamin with Folic Acid [One Daily Multivitamin Tablet] 400 mcg PO DAILY Vit A/Vit C/Vit E/Zinc/Copper [Preservision Areds Softgel] 1 each PO BID Telmisartan 80 mg [Micardis 80 MG Tablet] 80 mg PO HS Pramipexole Di-HCl [Mirapex] 0.5 mg PO BID Levothyroxine Sodium 100 Mcg [Synthroid 100 Mcg] 100 mcg PO DAILY Polyethylene Glycol 3350 [Miralax] 17 gm PO DAILY PRN PRN PRN Reason: Constipation Cetirizine HCl [Zyrtec] 10 mg PO DAILY Tramadol HCl 50 mg [Ultram 50 mg] 50 mg PO Q8HPRN PRN PRN Reason: Pain Telmisartan/Hydrochlorothiazid [Micardis Hct 80-12.5 mg Tablet] 1 each PO DAILY Mirabegron [Myrbetriq] 50 mg PO DAILY Instructions: COVID-19 (DC) Additional Instructions: YOU WILL NEED TO QUARANTINE UNTIL MONDAY THE . Follow up with: ROB LIZAMA MD [Primary Care Provider] - 03/14/22 9:30 am
[2022-03-05 14:52] LABS: Absolute Neutrophil Ct (ANC) 13.67 x10^3/uL (1.4-6.9); Basophil (Absolute #) 0.02 x10^3/uL (0-0.4); Eosinophil (Absolute #) 0 x10^3/uL (0-0.5); Hematocrit 32.4 % (42-50); Hemoglobin 10.9 g/dL (12.5-18.0); Lymphocytes % 7.2 % (24.0-44.0); Mean Corpuscular Hemoglobin 30.3 pg (26-32); Mean Corpuscular Hgb Concent. 33.6 g/dL (32-36); Monocyte (Absolute #) 0.39 x10^3/uL (0.0-1.3); Monocytes % 2.6 % (0.0-12.0); Neutrophil % 89.4 % (36.0-66.0); Platelet Count 187 x10^3/uL (150-450); Red Cell Distribution Width 13.2 % (11.5-14.0); White Blood Count 15.3 x10^3/uL (4.0-10.5)
--- NOTE | 2022-03-05 15:09 | PCM.NOTE ---
Date and Time: 03/05/22 1504 Subjective Assessment: Patient is confused pacing in his room and wanting to come out of his Covid room into the [facility], redirects easily. VSS but WBC and procalcitonoin both elevated from yesterday. Blood cultures are neg x 2.Lungs are with good aeration but abdomen is disteneded and firm. CT abd pelvis without contrast ordered,repeating labs this afternoon. Objective Exam General Appearance: no apparent distress Neurologic Exam: alert, oriented x 3, agitation Skin Exam: normal color, warm, dry Eye Exam: eyes nml inspection Ears, Nose, Throat Exam: normal ENT inspection Neck Exam: normal inspection Respiratory Exam: normal breath sounds Cardiovascular Exam: regular rate/rhythm Gastrointestinal/Abdomen Exam: distention (firm,no guarding,diminished BS) Extremity Exam: normal inspection Back Exam: normal inspection OBJECTIVE DATA Vital Signs: Vital Signs - 24 hr Temp Pulse Resp BP Pulse Ox 03/05/22 12:00 97.9 F 53 L 16 117/56 98 03/05/22 08:00 22 03/05/22 07:37 62 22 99 03/05/22 07:10 97.9 F 104 H 16 140/63 95 03/05/22 04:00 97.5 F 52 L 19 110/55 97 03/05/22 00:00 18 03/04/22 23:57 97.7 F 53 L 17 131/61 96 03/04/22 20:00 97.8 F 65 18 117/54 98 03/04/22 18:59 70 18 97 03/04/22 16:00 97.7 F 59 L 19 133/60 96 Pain Assessment - Last Documented Pain Intensity 0 Intake and Output: Intake & Output 03/03/22 03/04/22 03/05/22 03/06/22 11:59 11:59 11:59 11:59 Intake Total 440 1060 240 Output Total 300 400 Balance 140 660 240 Weight 98.2 kg Lab Results: Lab Results-Last 24 Hours 03/05/22 03/05/22 03/05/22 Range/Units 05:30 06:08 06:08 WBC 13.3 H (4.0-10.5) x10^3/uL RBC 3.57 L (4.1-5.6) x10^6/uL Hgb 10.6 L (12.5-18.0) g/dL Hct 32.3 L (42-50) % MCV 90.5 (78-100) fL MCH 29.7 (26-32) pg MCHC 32.8 (32-36) g/dL RDW 12.9 (11.5-14.0) % Plt Count 169 (150-450) x10^3/uL MPV 9.8 (7.5-11.0) fL Gran % 84.5 H (36.0-66.0) % Immature Gran % (Auto) 0.8 H (0.00-0.4) % Nucleat RBC Rel Count 0.0 (0.00-0.1) % Eos # (Auto) 0 (0-0.5) x10^3/uL Immature Gran # (Auto) 0.10 H (0.00-0.03) x10^3u/L Absolute Lymphs (auto) 1.23 (1.0-4.6) x10^3/uL Absolute Monos (auto) 0.72 (0.0-1.3) x10^3/uL Absolute Nucleated RBC 0.00 (0.00-0.01) x10^3u/L Lymphocytes % 9.2 L (24.0-44.0) % Monocytes % 5.4 (0.0-12.0) % Eosinophils % 0.0 (0.00-5.0) % Basophils % 0.1 (0.0-0.4) % Absolute Granulocytes 11.25 H (1.4-6.9) x10^3/uL Basophils # 0.01 (0-0.4) x10^3/uL Sodium 138 (137-145) mmol/L Potassium 3.5 (3.5-5.1) mmol/L Chloride 103 (98-107) mmol/L Carbon Dioxide 25 (22-30) mmol/L Anion Gap 13.6 (5-15) MEQ/L BUN 47 H (9-20) mg/dL Creatinine 1.44 H (0.66-1.25) mg/dL Estimated GFR 49.6 ML/MIN Glucose 120 H (74-106) mg/dL Calcium 8.1 L (8.4-10.2) mg/dL Magnesium 2.3 (1.6-2.3) mg/dL Procalcitonin 0.104 H 0.108 H (0.030-0.080) ng/mL 03/05/22 Range/Units 14:49 WBC 15.3 H (4.0-10.5) x10^3/uL RBC 3.60 L (4.1-5.6) x10^6/uL Hgb 10.9 L (12.5-18.0) g/dL Hct 32.4 L (42-50) % MCV 90.0 (78-100) fL MCH 30.3 (26-32) pg MCHC 33.6 (32-36) g/dL RDW 13.2 (11.5-14.0) % Plt Count 187 (150-450) x10^3/uL MPV 10.0 (7.5-11.0) fL Gran % 89.4 H (36.0-66.0) % Immature Gran % (Auto) 0.7 H (0.00-0.4) % Nucleat RBC Rel Count 0.0 (0.00-0.1) % Eos # (Auto) 0 (0-0.5) x10^3/uL Immature Gran # (Auto) 0.10 H (0.00-0.03) x10^3u/L Absolute Lymphs (auto) 1.10 (1.0-4.6) x10^3/uL Absolute Monos (auto) 0.39 (0.0-1.3) x10^3/uL Absolute Nucleated RBC 0.00 (0.00-0.01) x10^3u/L Lymphocytes % 7.2 L (24.0-44.0) % Monocytes % 2.6 (0.0-12.0) % Eosinophils % 0.0 (0.00-5.0) % Basophils % 0.1 (0.0-0.4) % Absolute Granulocytes 13.67 H (1.4-6.9) x10^3/uL Basophils # 0.02 (0-0.4) x10^3/uL Sodium (137-145) mmol/L Potassium (3.5-5.1) mmol/L Chloride (98-107) mmol/L Carbon Dioxide (22-30) mmol/L Anion Gap (5-15) MEQ/L BUN (9-20) mg/dL Creatinine (0.66-1.25) mg/dL Estimated GFR ML/MIN Glucose (74-106) mg/dL Calcium (8.4-10.2) mg/dL Magnesium (1.6-2.3) mg/dL Procalcitonin (0.030-0.080) ng/mL Radiology Exams: Radiology Procedures Category Date Time Status ABDOMEN AND PELVIS W/0 CONTRAS [CT] Urgent Exams 03/05/22 14:11 Ordered CHEST 1 VIEW (PORTABLE) Stat Exams 03/03/22 21:47 Completed
[2022-03-05 20:06] VITALS: BP 111/56; PULSE 62; O2SAT 99
[2022-03-05] MEDS ORDERED: Haldol 5 MG IM ONE ×2 (21:07→22:15)
[2022-03-05] MEDS ORDERED: Haldol 5 MG ONE (21:10)
--- NOTE | 2022-03-05 21:40 | XRAY ---
Indication: Abdomen distention and bloating. Multiple contiguous axial images obtained through the abdomen and pelvis without contrast. Comparison: August 03, 2020. Lung bases clear of infiltrate and effusion. Heart not enlarged. Noncontrasted stomach and small bowel loops appear nonobstructed. Stable small descending duodenal diverticulum and normal-appearing appendix. There is again mild diffuse colonic fecal debris throughout. Sigmoid is again twisted and air distended up to 7 cm in diameter with distal narrowing again favoring sigmoid volvulus. Normal feces and bowel gas distally. No free fluid/air. Stable right renal cysts, enlarged prostate gland, and tiny hepatic/splenic calcified granulomas. Remaining liver, gallbladder, pancreas, spleen, adrenal glands, kidneys, ureters, and bladder are unremarkable for noncontrast exam. Again mild scattered aortoiliac calcifications without AAA. Osseous structures intact again with osteopenia and mild/moderate degenerative changes throughout the spine and both hips. Impression: 1. Recurrent sigmoid volvulus. 2. Again mild diffuse fecal stasis, small duodenal diverticulum, right renal cysts, enlarged prostate gland, chronic bony findings, and old granulomatous disease. Comment: Preliminary interpretation made by [facility] who does not report sigmoid volvulus. Telephone report was given to ordering clinician, Dr. Lopez at 2135 hrs. on March 05, 2022.
[2022-03-06] MEDS: Flomax 0.4 MG PO SCH (03:19)
[2022-03-06] MEDS: ELIQUIS 2.5 MG TABLET PO SCH (03:19)
[2022-03-06] MEDS: Micardis 80 MG Tablet PO SCH (03:21)
[2022-03-06] MEDS: ZYLOPRIM 300 MG PO SCH (03:22)
[2022-03-06] MEDS: Multaq 400 MG PO SCH (03:22)
[2022-03-06] MEDS: REMDESIVIR 100 MG in Sodium Chloride 100ML MINI-BAG PLUS 100 ML IV SCH (03:22)
[2022-03-06] MEDS: Pepcid 20 MG VIAL IV SCH (03:22)
[2022-03-06] MEDS: Proscar 5 MG PO SCH (03:22)
== END 2022-03-06 00:15 | disposition home or self-care (01) ==
LOC: ED 21:07 → MED SURG 03-04 00:09
PROVIDERS: ADMIT Family Medicine; ATTEND Family Medicine
DX: U07.1 COVID-19 (principal); I48.91 Unspecified atrial fibrillation; R50.9 Fever, unspecified; E78.00 Pure hypercholesterolemia, unspecified; I10 Essential (primary) hypertension; D72.89 Other specified disorders of white blood cells; Z79.01 Long term (current) use of anticoagulants; Z79.899 Other long term (current) drug therapy; Z20.828 Contact with and (suspected) exposure to other viral communicable diseases; Z85.828 Personal history of other malignant neoplasm of skin
CPT/HCPCS: 0241U; 36000; 36415; 71045; 74176; 80048; 80053; 81015; 83605; 83735; 83880; 84134; 84145; 84443; 84484; 85025; 87040; 93005; 93268; 94760; 94762; 96374; 99285; G0378; J0248; J0456; J0696; J1100; J1630; A9270-GY

== ENCOUNTER 2022-04-03 21:18 | Observation (INO) | payer MEDICARE ==
[2022-04-03] MEDS ORDERED: BABY ASPIRIN 81 MG CHEW PO ONE (21:46)
--- NOTE | 2022-04-03 22:10 | ERPHSYRPT ---
- History of Present Illness Time Seen by Provider: 04/03/22 21:19 Historian: patient Exam Limitations: no limitations Patient Subjective Stated Complaint: pt states he has had chest pain began 1 hour while he was walking, states that his pain does not radiate and he has no shortness of breasth at this time. family states he has been hallucinating. Triage Nursing Assessment: pt alert and answers questions appropriatly.states he has pain 2/10 in chest at this time, walked to room with standby assist. Physician History: 86-year-old male with history of atrial fibrillation on Eliquis, hypertension, hyperlipidemia, dementia presented to the ER with sudden onset left-sided chest pain almost half an hour prior to arrival while he was walking in the street. Patient reported initially moderate intensity pain with a pressure nonradiating and started to improve on its own and currently having minimal discomfort. No palpitations or shortness of breath. No fever chills cough reported. Timing/Duration: hour(s) (0.5), constant, sudden, worse Quality: dullness, pressure Location: substernal Chest Pain Radiation: no radiation Severity of Pain-Max: moderate Severity of Pain-Current: mild Modifying Factors: Improves With: nothing Associated Symptoms: denies symptoms Nitro Today/Relief: no nitro taken today Aspirin Treatment Today: unknown Allergies/Adverse Reactions: No Known Drug Allergies Allergy (Verified 03/03/22 21:15) Home Medications: Dronedarone HCl [Multaq] 400 mg PO BID 04/22/19 [History] Finasteride 5 mg PO HS 04/22/19 [History] Furosemide 40 mg PO BID 04/22/19 [History] Metoprolol Succinate 50 mg PO DAILY 04/22/19 [History] Tamsulosin HCl 0.4 mg PO BID 04/22/19 [History] Apixaban [Eliquis] 2.5 mg PO BID 11/04/19 [History] allopurinoL [Allopurinol] 300 mg PO HS 11/04/19 [History] Levothyroxine Sodium 100 Mcg [Synthroid 100 Mcg] 100 mcg PO DAILY 08/05/20 [History] Pramipexole Di-HCl [Mirapex] 1 mg PO BID 08/05/20 [History] Vit A/Vit C/Vit E/Zinc/Copper [Preservision Areds Softgel] 1 cap PO BID 08/05/20 [History] Mirabegron [Myrbetriq] 50 mg PO DAILY 03/03/22 [History] Telmisartan/Hydrochlorothiazid [Micardis Hct 80-12.5 mg Tablet] 1 tab PO QHS 03/03/22 [History] Brimonidine Tartrate/Timolol [Combigan 0.2%-0.5% Eye Drops] 1 drop OP BID 04/03/22 [History] Multivitamin with Minerals [One Daily Complete] 1 tab PO DAILY 04/03/22 [History] Pramipexole Di-HCl [Pramipexole Dihydrochloride] 1.5 mg PO DAILY 04/03/22 [History] Hx Tetanus, Diphtheria Vaccination/Date Given: No (unsure) Hx Influenza Vaccination/Date Given: Yes Hx Pneumococcal Vaccination/Date Given: Yes Travel Risk - International Travel Have you traveled outside of the country in past 3 weeks: No - Coronavirus Screening Are you exhibiting any of the following symptoms?: No Close contact with a COVID-19 positive Pt in past 14-21 Days: No - Vaccine Status Have you recieved a Covid-19 vaccination: Yes 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: [employer] - Vaccination Dates Date of 2cond Vaccination (if applicable): unknown - Review of Systems Constitutional: No Symptoms Eyes: No Symptoms Ears, Nose, & Throat: No Symptoms Respiratory: No Symptoms Cardiac: Chest Pain Abdominal/Gastrointestinal: No Symptoms Genitourinary Symptoms: No Symptoms Musculoskeletal: No Symptoms Skin: No Symptoms Neurological: No Symptoms Psychological: No Symptoms Endocrine: No Symptoms Hematologic/Lymphatic: No Symptoms Immunological/Allergic: No Symptoms - Past Medical History Pertinent Past Medical History: Yes Neurological History: TIA ENT History: Other Cardiac History: Arrhythmia, High Cholesterol, Hypertension Respiratory History: No Pertinent History Endocrine Medical History: Hypothyroidism, Other Musculoskeletal History: Arthritis GI Medical History: No Pertinent History History: No Pertinent History Psycho-Social History: No Pertinent History Male Reproductive Disorders: No Pertinent History Other Medical History: 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 inguinal hernia - Social History Smoking Status: Former smoker Exposure to second hand smoke: No Drug Use: none Patient Lives Alone: No - Nursing Vital Signs Nursing Vital Signs: Initial Vital Signs Temperature 97.9 F 04/03/22 21:19 Pulse Rate 61 04/03/22 21:19 Respiratory Rate 18 04/03/22 21:19 Blood Pressure 169/70 04/03/22 21:19 O2 Sat by Pulse Oximetry 99 04/03/22 21:19 Pain Scale Pain Intensity 2 - Physical Exam General Appearance: no apparent distress, alert Eye Exam: PERRL/EOMI Ears, Nose, Throat Exam: normal ENT inspection, pharynx normal Neck Exam: normal inspection, non-tender, supple, full range of motion Respiratory Exam: normal breath sounds, lungs clear Cardiovascular Exam: regular rate/rhythm, normal heart sounds Gastrointestinal/Abdomen Exam: soft, normal bowel sounds, No tenderness Back Exam: normal inspection, normal range of motion Extremity Exam: normal inspection, normal range of motion Neurologic Exam: alert, oriented x 3, cooperative Skin Exam: normal color SpO2 Interpretation: normal SpO2: 99 O2 Delivery: Room Air - Course EKG Interpreted by Me: RATE (60), Sinus Rhythm, NORMAL AXIS, NORMAL INTERVALS, Non-specific ST Changes Ordered Tests: Active Orders 24 hr Category Date Time Status Bedrest ROUTINE Activity 04/04/22 00:56 Active Up With Assistance ROUTINE Activity 04/04/22 00:56 Active Administrative Technician STAT Care 04/03/22 21:46 Completed Code Status Order ROUTINE Care 04/04/22 00:56 Active EKG-ER Only STAT Care 04/03/22 21:46 Completed Fall Protocol Q1H Care 04/04/22 00:56 Active IV Care Q6H Care 04/04/22 00:56 Active IV Insertion STAT Care 04/03/22 21:46 Completed Neuro Checks Q2H Care 04/04/22 00:[address] in Observation ROUTINE Care 04/04/22 00:56 Active Juan Hose, Apply ROUTINE Care 04/04/22 00:56 Active Weight,Daily 0600 Care 04/04/22 00:56 Active Heart-Healthy Diet Diet 04/04/22 Breakfast Active CHEST 1 VIEW (PORTABLE) Stat Exams 04/03/22 21:46 Taken CBC W DIFF AM.LAB Lab 04/04/22 04:55 Completed CBC W DIFF Stat Lab 04/03/22 22:14 Completed CMP AM.LAB Lab 04/04/22 04:55 Completed CMP Stat Lab 04/03/22 22:14 Completed NT PRO BNP Stat Lab 04/03/22 22:14 Completed TROPONIN Q4H Lab 04/03/22 22:14 Completed TROPONIN Q4H Lab 04/04/22 02:35 Completed TROPONIN Q4H Lab 04/04/22 04:55 Completed Medication Summary Generic Name Dose Route Start Last Admin Trade Name Freq PRN Reason Stop Dose Admin Acetaminophen 650 mg 04/04/22 00:56 Acetaminophen 325 Mg Tablet PO 05/04/22 00:55 Q4H PRN PRN PAIN AND/OR FEVER Famotidine 20 mg 04/04/22 10:00 Famotidine 20 Mg/1 Vial IV 05/04/22 09:59 Q12HT REYNA Ondansetron HCl 4 mg 04/04/22 00:56 Ondansetron Hcl 4 Mg/2 Ml Vial IV 05/04/22 00:55 Q6H PRN PRN NAUSEA/VOMITING Discontinued Medications Generic Name Dose Route Start Last Admin Trade Name Freq PRN Reason Stop Dose Admin Albuterol/Ipratropium 3 ml 04/04/22 00:56 Ipratropium/Albuterol Sulfate 3 Ml Ampul.Neb IH 05/04/22 00:55 Q4HPRN PRN SHORTNESS OF BREATH/WHEEZING Aspirin 324 mg 04/03/22 21:46 04/03/22 22:02 Aspirin 81 Mg Tab.Chew PO 04/03/22 21:47 324 mg STAT ONE Administration Lab/Rad Data: Laboratory Result Diagrams 04/03/22 22:14 04/03/22 22:14 Laboratory Results 04/03/22 04/03/22 04/03/22 Range/Units 23:02 22:14 22:14 WBC (4.0-10.5) x10^3/uL RBC (4.1-5.6) x10^6/uL Hgb (12.5-18.0) g/dL Hct (42-50) % MCV (78-100) fL MCH (26-32) pg MCHC (32-36) g/dL RDW (11.5-14.0) % Plt Count (150-450) x10^3/uL MPV (7.5-11.0) fL Gran % (36.0-66.0) % Immature Gran % (Auto) (0.00-0.4) % Nucleat RBC Rel Count (0.00-0.1) % Eos # (Auto) (0-0.5) x10^3/uL Immature Gran # (Auto) (0.00-0.03) x10^3u/L Absolute Lymphs (auto) (1.0-4.6) x10^3/uL Absolute Monos (auto) (0.0-1.3) x10^3/uL Absolute Nucleated RBC (0.00-0.01) x10^3u/L Lymphocytes % (24.0-44.0) % Monocytes % (0.0-12.0) % Eosinophils % (0.00-5.0) % Basophils % (0.0-0.4) % Absolute Granulocytes (1.4-6.9) x10^3/uL Basophils # (0-0.4) x10^3/uL Sodium 140 (137-145) mmol/L Potassium 4.3 (3.5-5.1) mmol/L Chloride 105 (98-107) mmol/L Carbon Dioxide 27 (22-30) mmol/L Anion Gap 13.2 (5-15) MEQ/L BUN 54 H (9-20) mg/dL Creatinine 2.07 H (0.66-1.25) mg/dL Estimated GFR 32.6 ML/MIN Glucose 91 (74-106) mg/dL Calcium 8.6 (8.4-10.2) mg/dL Total Bilirubin 0.70 (0.2-1.3) mg/dL AST 32 (17-59) U/L ALT 24 (0-50) U/L Alkaline Phosphatase 107 (38-126) U/L Troponin I < 0.012 (0.000-0.034) ng/mL NT-Pro-B Natriuret Pep 462 (0-1800) pg/mL Serum Total Protein 7.1 (6.3-8.2) g/dL Albumin 4.4 (3.5-5.0) g/dL Influenza Type A Ag NEGATIVE (NEGATIVE) Influenza Type B Ag NEGATIVE (NEGATIVE) RSV (PCR) NEGATIVE (Negative) SARS-CoV-2 (PCR) POSITIVE A (NEGATIVE) 04/03/22 Range/Units 22:14 WBC 7.6 (4.0-10.5) x10^3/uL RBC 3.78 L (4.1-5.6) x10^6/uL Hgb 11.5 L (12.5-18.0) g/dL Hct 34.4 L (42-50) % MCV 91.0 (78-100) fL MCH 30.4 (26-32) pg MCHC 33.4 (32-36) g/dL RDW 13.6 (11.5-14.0) % Plt Count 298 (150-450) x10^3/uL MPV 9.7 (7.5-11.0) fL Gran % 64.8 (36.0-66.0) % Immature Gran % (Auto) 0.5 H (0.00-0.4) % Nucleat RBC Rel Count 0.0 (0.00-0.1) % Eos # (Auto) 0.22 (0-0.5) x10^3/uL Immature Gran # (Auto) 0.04 H (0.00-0.03) x10^3u/L Absolute Lymphs (auto) 1.76 (1.0-4.6) x10^3/uL Absolute Monos (auto) 0.60 (0.0-1.3) x10^3/uL Absolute Nucleated RBC 0.00 (0.00-0.01) x10^3u/L Lymphocytes % 23.1 L (24.0-44.0) % Monocytes % 7.9 (0.0-12.0) % Eosinophils % 2.9 (0.00-5.0) % Basophils % 0.8 (0.0-0.4) % Absolute Granulocytes 4.94 (1.4-6.9) x10^3/uL Basophils # 0.06 (0-0.4) x10^3/uL Sodium (137-145) mmol/L Potassium (3.5-5.1) mmol/L Chloride (98-107) mmol/L Carbon Dioxide (22-30) mmol/L Anion Gap (5-15) MEQ/L BUN (9-20) mg/dL Creatinine (0.66-1.25) mg/dL Estimated GFR ML/MIN Glucose (74-106) mg/dL Calcium (8.4-10.2) mg/dL Total Bilirubin (0.2-1.3) mg/dL AST (17-59) U/L ALT (0-50) U/L Alkaline Phosphatase (38-126) U/L Troponin I (0.000-0.034) ng/mL NT-Pro-B Natriuret Pep (0-1800) pg/mL Serum Total Protein (6.3-8.2) g/dL Albumin (3.5-5.0) g/dL Influenza Type A Ag (NEGATIVE) Influenza Type B Ag (NEGATIVE) RSV (PCR) (Negative) SARS-CoV-2 (PCR) (NEGATIVE) - Progress Progress: improved Air Movement: good Progress Note: 04/03/22 23:31 86 years old is evaluated for sudden onset chest pain. Patient chest pain is i mproved on its own and given aspirin. EKG nose ST elevation. Negative initial troponin. Chest x-ray negative for any acute finding reviewed by me, official report is pending. Mild worsening of renal functions. I believe patient has multiple risk factor and needs to be evaluated/trending of cardiac enzyme. Later on family told that patient is having a lot of hallucinations for almost a month with recent increase in his medications which did not seem helping. They do not think patient is safe to be discharged home. Patient cannot be medically cleared for psych evaluation, he is being admitted to medical service. Discussed with and patient is excepted for admission. Once patient is medically cleared he would be evaluated by [facility]. 04/04/22 00:59 Patient is also COVID-19 positive but not in any distress and no obvious. Blood Culture(s) Obtained: No Antibiotics given: No Discussed with : Jin Counseled pt/family regarding: lab results, diagnosis, rad results - Departure Departure Disposition: Observation Clinical Impression: Chest pain, rule out acute myocardial infarction, Hallucination, URIEL (acute kidney injury), COVID-19 Condition: Stable Critical Care Time: No
[2022-04-03 22:17] LABS: Absolute Neutrophil Ct (ANC) 4.94 x10^3/uL (1.4-6.9); Basophil (Absolute #) 0.06 x10^3/uL (0-0.4); Eosinophil % 2.9 % (0.00-5.0); Eosinophil (Absolute #) 0.22 x10^3/uL (0-0.5); Hematocrit 34.4 % (42-50); Hemoglobin 11.5 g/dL (12.5-18.0); Lymphocyte (Absolute #) 1.76 x10^3/uL (1.0-4.6); Lymphocytes % 23.1 % (24.0-44.0); Mean Corpuscular Hemoglobin 30.4 pg (26-32); Mean Corpuscular Hgb Concent. 33.4 g/dL (32-36); Mean Platelet Volume 9.7 fL (7.5-11.0); Monocytes % 7.9 % (0.0-12.0); Neutrophil % 64.8 % (36.0-66.0); Platelet Count 298 x10^3/uL (150-450); Red Blood Count 3.78 x10^6/uL (4.1-5.6); Red Cell Distribution Width 13.6 % (11.5-14.0); White Blood Count 7.6 x10^3/uL (4.0-10.5)
[2022-04-03 22:41] LABS: ALBUMIN 4.4 g/dL (3.5-5.0); ANION GAP 13.2 MEQ/L (5-15); BILIRUBIN,TOTAL 0.7 mg/dL (0.2-1.3); Calcium 8.6 mg/dL (8.4-10.2); Creatinine 1 2.07 mg/dL (0.66-1.25); EST GLOMERULAR FILTRATION RATE 32.6 ML/MIN; Potassium 4.3 mmol/L (3.5-5.1); Total Protein 7.1 g/dL (6.3-8.2)
[2022-04-03 23:42] LABS: INFLUENZA A NEGATIVE (NEGATIVE); INFLUENZA B NEGATIVE (NEGATIVE); RESPIRATORY SYNCTIAL VIRUS NEGATIVE (Negative)
[2022-04-04 00:01] LABS: SARS-CoV-2 Xpert Express POSITIVE (NEGATIVE)
[2022-04-04] MEDS ORDERED: DUONEB 0.5-3 MG/3 ml Neb IH PRN (00:56)
[2022-04-04] MEDS ORDERED: TYLENOL 325 MG PO PRN (00:56)
[2022-04-04] MEDS ORDERED: Zofran 4 MG/2 ML VIAL IV PRN (00:56)
[2022-04-04 05:05] LABS: Absolute Neutrophil Ct (ANC) 5.24 x10^3/uL (1.4-6.9); Basophil (Absolute #) 0.06 x10^3/uL (0-0.4); Eosinophil (Absolute #) 0.25 x10^3/uL (0-0.5); Hematocrit 36.7 % (42-50); Lymphocyte (Absolute #) 2.19 x10^3/uL (1.0-4.6); Lymphocytes % 26.1 % (24.0-44.0); Mean Cell Volume 91.8 fL (78-100); Mean Corpuscular Hgb Concent. 32.7 g/dL (32-36); Monocyte (Absolute #) 0.61 x10^3/uL (0.0-1.3); Monocytes % 7.3 % (0.0-12.0); Neutrophil % 62.5 % (36.0-66.0); Platelet Count 271 x10^3/uL (150-450); Red Cell Distribution Width 13.3 % (11.5-14.0); White Blood Count 8.4 x10^3/uL (4.0-10.5)
[2022-04-04 05:37] LABS: ALBUMIN 4.4 g/dL (3.5-5.0); ANION GAP 10.2 MEQ/L (5-15); BILIRUBIN,TOTAL 0.7 mg/dL (0.2-1.3); Calcium 8.6 mg/dL (8.4-10.2); Creatinine 1 2.01 mg/dL (0.66-1.25); EST GLOMERULAR FILTRATION RATE 33.7 ML/MIN; Potassium 3.3 mmol/L (3.5-5.1); Total Protein 7.2 g/dL (6.3-8.2)
--- NOTE | 2022-04-04 08:48 | PCM.HP ---
History of Present Illness - Chief Complaint Chief Complaint: CP R/O, acute PR, hallucinations History of Present Illness: is a 86 year old male who presented to the ER with a complaint of left sided chest pain, he feels it was very minor and coming to the ER and admisson to the hospital was overdoing it. He had no nausea, vomiting, diaphoresis or shortness of breath. Pain was dull in the left chest and has resolved, he has no complaints today. Family reported hallcinations which he admits to, he states he is seeing his perform sexual acts with someone else at times and sees small figures with children's faces that move around the room, he states he saw one but it disappeared when he attempted to show it to me in his room. he is oriented to self and place, eating breakfast in no distress and is cooperative at this time. - Review of Systems Constitutional: No Fever, No Chills Respiratory: No Cough, No Short Of Breath Cardiac: No Chest Pain, No Edema, No Syncope Abdominal/Gastrointestinal: No Abdominal Pain, No Nausea, No Vomiting, No Diarrhea Genitourinary Symptoms: No Dysuria Skin: No Rash Neurological: No Dizziness, No Focal Weakness, No Sensory Changes Psychological: Hallucinations, Memory Loss Medications & Allergies Home Medications: Home Medication List Dronedarone HCl [Multaq] 400 mg PO BID 04/22/19 [History Confirmed 04/03/22] Finasteride 5 mg PO HS 04/22/19 [History Confirmed 04/03/22] Furosemide 40 mg PO BID 04/22/19 [History Confirmed 04/03/22] Metoprolol Succinate 50 mg PO DAILY 04/22/19 [History Confirmed 04/03/22] Tamsulosin HCl 0.4 mg PO BID 04/22/19 [History Confirmed 04/03/22] Apixaban [Eliquis] 2.5 mg PO BID 11/04/19 [History Confirmed 04/03/22] allopurinoL [Allopurinol] 300 mg PO HS 11/04/19 [History Confirmed 04/03/22] Levothyroxine Sodium 100 Mcg [Synthroid 100 Mcg] 100 mcg PO DAILY 08/05/20 [History Confirmed 04/03/22] Pramipexole Di-HCl [Mirapex] 1 mg PO BID 08/05/20 [History Confirmed 04/03/22] Vit A/Vit C/Vit E/Zinc/Copper [Preservision Areds Softgel] 1 cap PO BID 08/05/20 [History Confirmed 04/03/22] Mirabegron [Myrbetriq] 50 mg PO DAILY 03/03/22 [History Confirmed 04/03/22] Telmisartan/Hydrochlorothiazid [Micardis Hct 80-12.5 mg Tablet] 1 tab PO QHS [History Confirmed 04/03/22] Brimonidine Tartrate/Timolol [Combigan 0.2%-0.5% Eye Drops] 1 drop OP BID 04/03/22 [History Confirmed 04/03/22] Multivitamin with Minerals [One Daily Complete] 1 tab PO DAILY 04/03/22 [History Confirmed 04/03/22] Pramipexole Di-HCl [Pramipexole Dihydrochloride] 1.5 mg PO DAILY 04/03/22 [History Confirmed 04/03/22] Allergies/Adverse Reactions: Allergies Allergy/AdvReac Type Severity Reaction Status Date / Time No Known Drug Allergies Allergy Verified 03/03/22 21:15 - Past Medical History Past Medical History: Yes Neurological History: TIA ENT History: Other Cardiac History: Arrhythmia, High Cholesterol, Hypertension Respiratory History: No Pertinent History Endocrine Medical History: Hypothyroidism, Other Musculoskelatal History: Arthritis GI Medical History: No Pertinent History History: No Pertinent History Pyscho-Social History: No Pertinent History Male Reproductive Disorders: No Pertinent History Comment: 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 inguinal hernia - Social History Smoking Status: Former smoker Exposure to second hand smoke: No Alcohol: None Drug Use: none - Physical Exam Vital Signs: Vital Signs - 24 hr Temp Pulse Resp BP Pulse Ox 04/04/22 08:00 14 04/04/22 07:48 98.0 F 49 L 14 156/70 100 04/04/22 06:44 99 04/04/22 06:00 48 L 18 04/04/22 04:00 97.6 F 47 L 18 152/74 100 04/04/22 03:15 96 H 18 95 04/04/22 01:33 97.5 F 96 H 18 174/78 95 04/04/22 00:31 79 18 173/91 98 04/03/22 23:53 57 L 18 177/85 100 04/03/22 21:19 97.9 F 61 18 169/70 99 General Appearance: no apparent distress Neurologic Exam: alert, cooperative Eye Exam: PERRL/EOMI Respiratory Exam: normal breath sounds, lungs clear, No respiratory distress Cardiovascular Exam: regular rate/rhythm, normal heart sounds, normal peripheral pulses Gastrointestinal/Abdomen Exam: soft, normal bowel sounds, No tenderness, No mass Extremity Exam: normal inspection, normal range of motion, pelvis stable Skin Exam: normal color, warm, dry, No rash Results - Labs Lab/Micro Results: Lab Results-Last 24 Hours 04/03/22 04/03/22 04/03/22 Range/Units 22:14 22:14 22:14 WBC 7.6 (4.0-10.5) x10^3/uL RBC 3.78 L (4.1-5.6) x10^6/uL Hgb 11.5 L (12.5-18.0) g/dL Hct 34.4 L (42-50) % MCV 91.0 (78-100) fL MCH 30.4 (26-32) pg MCHC 33.4 (32-36) g/dL RDW 13.6 (11.5-14.0) % Plt Count 298 (150-450) x10^3/uL MPV 9.7 (7.5-11.0) fL Gran % 64.8 (36.0-66.0) % Immature Gran % (Auto) 0.5 H (0.00-0.4) % Nucleat RBC Rel Count 0.0 (0.00-0.1) % Eos # (Auto) 0.22 (0-0.5) x10^3/uL Immature Gran # (Auto) 0.04 H (0.00-0.03) x10^3u/L Absolute Lymphs (auto) 1.76 (1.0-4.6) x10^3/uL Absolute Monos (auto) 0.60 (0.0-1.3) x10^3/uL Absolute Nucleated RBC 0.00 (0.00-0.01) x10^3u/L Lymphocytes % 23.1 L (24.0-44.0) % Monocytes % 7.9 (0.0-12.0) % Eosinophils % 2.9 (0.00-5.0) % Basophils % 0.8 (0.0-0.4) % Absolute Granulocytes 4.94 (1.4-6.9) x10^3/uL Basophils # 0.06 (0-0.4) x10^3/uL Sodium 140 (137-145) mmol/L Potassium 4.3 (3.5-5.1) mmol/L Chloride 105 (98-107) mmol/L Carbon Dioxide 27 (22-30) mmol/L Anion Gap 13.2 (5-15) MEQ/L BUN 54 H (9-20) mg/dL Creatinine 2.07 H (0.66-1.25) mg/dL Estimated GFR 32.6 ML/MIN Glucose 91 (74-106) mg/dL Calcium 8.6 (8.4-10.2) mg/dL Total Bilirubin 0.70 (0.2-1.3) mg/dL AST 32 (17-59) U/L ALT 24 (0-50) U/L Alkaline Phosphatase 107 (38-126) U/L Troponin I < 0.012 (0.000-0.034) ng/mL NT-Pro-B Natriuret Pep 462 (0-1800) pg/mL Serum Total Protein 7.1 (6.3-8.2) g/dL Albumin 4.4 (3.5-5.0) g/dL Influenza Type A Ag (NEGATIVE) Influenza Type B Ag (NEGATIVE) RSV (PCR) (Negative) SARS-CoV-2 (PCR) (NEGATIVE) 04/03/22 04/04/22 04/04/22 Range/Units 23:02 02:35 04:55 WBC (4.0-10.5) x10^3/uL RBC (4.1-5.6) x10^6/uL Hgb (12.5-18.0) g/dL Hct (42-50) % MCV (78-100) fL MCH (26-32) pg MCHC (32-36) g/dL RDW (11.5-14.0) % Plt Count (150-450) x10^3/uL MPV (7.5-11.0) fL Gran % (36.0-66.0) % Immature Gran % (Auto) (0.00-0.4) % Nucleat RBC Rel Count (0.00-0.1) % Eos # (Auto) (0-0.5) x10^3/uL Immature Gran # (Auto) (0.00-0.03) x10^3u/L Absolute Lymphs (auto) (1.0-4.6) x10^3/uL Absolute Monos (auto) (0.0-1.3) x10^3/uL Absolute Nucleated RBC (0.00-0.01) x10^3u/L Lymphocytes % (24.0-44.0) % Monocytes % (0.0-12.0) % Eosinophils % (0.00-5.0) % Basophils % (0.0-0.4) % Absolute Granulocytes (1.4-6.9) x10^3/uL Basophils # (0-0.4) x10^3/uL Sodium (137-145) mmol/L Potassium (3.5-5.1) mmol/L Chloride (98-107) mmol/L Carbon Dioxide (22-30) mmol/L Anion Gap (5-15) MEQ/L BUN (9-20) mg/dL Creatinine (0.66-1.25) mg/dL Estimated GFR ML/MIN Glucose (74-106) mg/dL Calcium (8.4-10.2) mg/dL Total Bilirubin (0.2-1.3) mg/dL AST (17-59) U/L ALT (0-50) U/L Alkaline Phosphatase (38-126) U/L Troponin I < 0.012 < 0.012 (0.000-0.034) ng/mL NT-Pro-B Natriuret Pep (0-1800) pg/mL Serum Total Protein (6.3-8.2) g/dL Albumin (3.5-5.0) g/dL Influenza Type A Ag NEGATIVE (NEGATIVE) Influenza Type B Ag NEGATIVE (NEGATIVE) RSV (PCR) NEGATIVE (Negative) SARS-CoV-2 (PCR) POSITIVE A (NEGATIVE) 04/04/22 04/04/22 Range/Units 04:55 04:55 WBC 8.4 (4.0-10.5) x10^3/uL RBC 4.00 L (4.1-5.6) x10^6/uL Hgb 12.0 L (12.5-18.0) g/dL Hct 36.7 L (42-50) % MCV 91.8 (78-100) fL MCH 30.0 (26-32) pg MCHC 32.7 (32-36) g/dL RDW 13.3 (11.5-14.0) % Plt Count 271 (150-450) x10^3/uL MPV 9.0 (7.5-11.0) fL Gran % 62.5 (36.0-66.0) % Immature Gran % (Auto) 0.4 (0.00-0.4) % Nucleat RBC Rel Count 0.0 (0.00-0.1) % Eos # (Auto) 0.25 (0-0.5) x10^3/uL Immature Gran # (Auto) 0.03 (0.00-0.03) x10^3u/L Absolute Lymphs (auto) 2.19 (1.0-4.6) x10^3/uL Absolute Monos (auto) 0.61 (0.0-1.3) x10^3/uL Absolute Nucleated RBC 0.00 (0.00-0.01) x10^3u/L Lymphocytes % 26.1 (24.0-44.0) % Monocytes % 7.3 (0.0-12.0) % Eosinophils % 3.0 (0.00-5.0) % Basophils % 0.7 (0.0-0.4) % Absolute Granulocytes 5.24 (1.4-6.9) x10^3/uL Basophils # 0.06 (0-0.4) x10^3/uL Sodium 142 (137-145) mmol/L Potassium 3.3 L D (3.5-5.1) mmol/L Chloride 102 (98-107) mmol/L Carbon Dioxide 33 H (22-30) mmol/L Anion Gap 10.2 (5-15) MEQ/L BUN 50 H (9-20) mg/dL Creatinine 2.01 H (0.66-1.25) mg/dL Estimated GFR 33.7 ML/MIN Glucose 95 (74-106) mg/dL Calcium 8.6 (8.4-10.2) mg/dL Total Bilirubin 0.70 (0.2-1.3) mg/dL AST 28 (17-59) U/L ALT 24 (0-50) U/L Alkaline Phosphatase 100 (38-126) U/L Troponin I (0.000-0.034) ng/mL NT-Pro-B Natriuret Pep (0-1800) pg/mL Serum Total Protein 7.2 (6.3-8.2) g/dL Albumin 4.4 (3.5-5.0) g/dL Influenza Type A Ag (NEGATIVE) Influenza Type B Ag (NEGATIVE) RSV (PCR) (Negative) SARS-CoV-2 (PCR) (NEGATIVE) - Radiology Impressions Radiology Exams & Impressions: Radiology Procedures Category Date Time Status CHEST 1 VIEW (PORTABLE) Stat Exams 04/03/22 21:46 Taken Assessment/Plan (1) Chest pain, rule out acute myocardial infarction Current Visit: Yes Status: Acute Assessment & Plan: PR is being ruled out, ekg with no acute changes and patient has no active pain. does not appear to be cardiac Code(s): R07.9 - CHEST PAIN, UNSPECIFIED (2) Hallucination Current Visit: Yes Status: Acute Assessment & Plan: suspect underlying dementia with hallucinations at this time. will check b12, rpr, folate. head ct nothing acute. will consult neurology for further recommendations, would likely benefit from low dose seroquel at bedtime, will start 50mg this evening unless neuro has a different suggestion. 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 Code(s): N18.9 - CHRONIC KIDNEY DISEASE, UNSPECIFIED
--- NOTE | 2022-04-04 09:10 | XRAY ---
Indication: Chest pain. Comparison: March 03, 2022 Portable chest does not completely include right costophrenic angle. Remaining visualized heart and lungs unremarkable. Bony thorax intact again with mild osteopenia and degenerative changes.
--- NOTE | 2022-04-04 09:26 | XRAY ---
Indication: Acute mental status change. Positive Covid 19. Poor storing. Multiple contiguous axial images obtained through the head without contrast. Comparison: None. There is a MRI brain March 30, 2022. Age-appropriate global atrophy and moderate/significant periventricular degenerative micro-ischemia bilaterally. No acute intracranial hemorrhage, abnormal extra-axial fluid collection, or mass effect. Fourth ventricle is midline without hydrocephalus. Incidental empty sella. Bony calvarium intact. Visualized paranasal sinuses and mastoid air cells are clear. Impression: Normal aging brain including atrophy and degenerative micro-ischemia. Incidental empty sella. Appearance is grossly similar to recent MRI brain exam.
[2022-04-04] MEDS ORDERED: MEDICATION INTERVENTION MC SCH (09:45)
[2022-04-04] MEDS ORDERED: APIXABAN PO SCH (10:00)
[2022-04-04] MEDS ORDERED: NON-FORMULARY ITEM (Brimonidine Tartrate/Timolol [Combigan 0.2%-0.5% Eye Drops] 5 ML Drops OP SCH (10:00)
[2022-04-04] MEDS: Pepcid 20 MG VIAL IV SCH ×2 (10:14→20:27)
[2022-04-04] MEDS: Flomax 0.4 MG PO SCH (10:14)
[2022-04-04] MEDS: ELIQUIS 2.5 MG TABLET PO SCH ×2 (10:15→20:26)
[2022-04-04] MEDS: Multaq 400 MG PO SCH ×2 (10:15→20:24)
[2022-04-04] MEDS: Toprol Xl 50 MG PO SCH (10:15)
[2022-04-04] MEDS: SYNTHROID 100 MCG PO SCH (10:15)
[2022-04-04 10:32] LABS: Folate (Folic Acid) > 19.0 ng/mL (2.76 - >20); Vitamin B12 764 pg/mL (239-931)
[2022-04-04 11:30] LABS: Appearance CLEAR (CLEAR); Bilirubin NEGATIVE (NEGATIVE); Dipstick done @ ? MAIN LAB; Glucose NEGATIVE (NEGATIVE); Ketones NEGATIVE (NEGATIVE); Nitrite NEGATIVE (NEGATIVE); Protein,Urine Dip NEGATIVE (Negative); RBC NEGATIVE Ery/ul (0-5); Urobilinogen 0.2 mg/dL (0-1)
[2022-04-04 11:50] LABS: Barbiturate,Urine NEGATIVE (NEGATIVE); Benzodiazepine,Urine NEGATIVE (NEGATIVE); Cocaine,Urine NEGATIVE (NEGATIVE); Methadone,Urine NEGATIVE (NEGATIVE); Opiate,Urine NEGATIVE (NEGATIVE); PCP,Urine NEGATIVE (NEGATIVE); THC,Urine NEGATIVE (NEGATIVE)
[2022-04-04 11:54] LABS: Amphetamine,Urine NEGATIVE (NEGATIVE)
[2022-04-04 11:57] LABS: Urine Cultured Indicated? NO
[2022-04-04] MEDS: ZYLOPRIM 300 MG PO SCH (20:25)
[2022-04-04] MEDS: hydroDIURIL 25 MG PO SCH (20:26)
[2022-04-04] MEDS: Proscar 5 MG PO SCH (20:27)
[2022-04-04] MEDS: Micardis 80 MG Tablet PO SCH (20:36)
[2022-04-04] MEDS ORDERED: Mirapex 0.5 MG Tablet PO ONE (22:00)
[2022-04-04] MEDS ORDERED: [UNRECOGNIZED DRUG - OTHER] PO SCH (22:00)
[2022-04-04] MEDS ORDERED: Seroquel 25 MG PO SCH (22:00)
[2022-04-04] MEDS ORDERED: Risperdal 1 MG PO ONE (22:00)
[2022-04-05] MEDS: Toprol Xl 50 MG PO SCH (06:52)
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
[2022-04-05 09:19] LABS: Absolute Neutrophil Ct (ANC) 7.48 x10^3/uL (1.4-6.9); Basophil (Absolute #) 0.07 x10^3/uL (0-0.4); Eosinophil % 1.6 % (0.00-5.0); Eosinophil (Absolute #) 0.16 x10^3/uL (0-0.5); Hematocrit 37.6 % (42-50); Hemoglobin 12.7 g/dL (12.5-18.0); Lymphocytes % 17.9 % (24.0-44.0); Mean Cell Volume 89.3 fL (78-100); Mean Corpuscular Hemoglobin 30.2 pg (26-32); Mean Corpuscular Hgb Concent. 33.8 g/dL (32-36); Mean Platelet Volume 10.7 fL (7.5-11.0); Neutrophil % 74.3 % (36.0-66.0); Platelet Count 316 x10^3/uL (150-450); Red Blood Count 4.21 x10^6/uL (4.1-5.6); Red Cell Distribution Width 13.9 % (11.5-14.0); White Blood Count 10.1 x10^3/uL (4.0-10.5)
[2022-04-05 09:30] LABS: ALBUMIN 4.4 g/dL (3.5-5.0); ANION GAP 12.9 MEQ/L (5-15); BILIRUBIN,TOTAL 0.9 mg/dL (0.2-1.3); Calcium 8.9 mg/dL (8.4-10.2); Creatinine 1 1.86 mg/dL (0.66-1.25); EST GLOMERULAR FILTRATION RATE 36.9 ML/MIN; Potassium 3.9 mmol/L (3.5-5.1); Total Protein 7.8 g/dL (6.3-8.2)
[2022-04-05] MEDS: Risperdal 1 MG PO SCH (09:36)
[2022-04-05] MEDS: ELIQUIS 2.5 MG TABLET PO SCH ×2 (09:36→21:48)
[2022-04-05] MEDS: Multaq 400 MG PO SCH ×2 (09:36→21:49)
[2022-04-05] MEDS: Flomax 0.4 MG PO SCH (09:36)
[2022-04-05] MEDS: Pepcid 20 MG VIAL IV SCH ×2 (09:36→21:49)
[2022-04-05] MEDS: SYNTHROID 100 MCG PO SCH (09:36)
[2022-04-05 09:40] LABS: RPR Non Reactive (Non Reactive)
[2022-04-05] MEDS ORDERED: Cozaar 50 MG PO SCH (10:00)
[2022-04-05] MEDS ORDERED: ECOTRIN 81 MG PO SCH (10:00)
[2022-04-05 10:21] LABS: Influenza A NEGATIVE (NEGATIVE); Influenza B NEGATIVE (NEGATIVE)
[2022-04-05 10:23] LABS: SARS COVID AG POSITIVE (NEGATIVE)
[2022-04-05 11:09] LABS: COVID AG -BINAX NOW RAPID TEST NEGATIVE (NEGATIVE)
[2022-04-05] MEDS: ZYLOPRIM 300 MG PO SCH (21:47)
[2022-04-05] MEDS: hydroDIURIL 25 MG PO SCH (21:47)
[2022-04-05] MEDS: Micardis 80 MG Tablet PO SCH (21:47)
[2022-04-05] MEDS ORDERED: Risperdal 1 MG PO SCH (22:00)
[2022-04-05] MEDS: Proscar 5 MG PO SCH (22:04)
[2022-04-06 05:07] LABS: Absolute Neutrophil Ct (ANC) 5.65 x10^3/uL (1.4-6.9); Basophil (Absolute #) 0.05 x10^3/uL (0-0.4); Eosinophil % 1.2 % (0.00-5.0); Eosinophil (Absolute #) 0.09 x10^3/uL (0-0.5); Hematocrit 34.6 % (42-50); Hemoglobin 11.5 g/dL (12.5-18.0); Lymphocytes % 17.3 % (24.0-44.0); Mean Cell Volume 90.1 fL (78-100); Mean Corpuscular Hemoglobin 29.9 pg (26-32); Mean Corpuscular Hgb Concent. 33.2 g/dL (32-36); Mean Platelet Volume 9.2 fL (7.5-11.0); Monocyte (Absolute #) 0.41 x10^3/uL (0.0-1.3); Monocytes % 5.4 % (0.0-12.0); Platelet Count 253 x10^3/uL (150-450); Red Blood Count 3.84 x10^6/uL (4.1-5.6); Red Cell Distribution Width 13.4 % (11.5-14.0); White Blood Count 7.5 x10^3/uL (4.0-10.5)
[2022-04-06 05:39] LABS: ALBUMIN 4.2 g/dL (3.5-5.0); ANION GAP 12.6 MEQ/L (5-15); BILIRUBIN,TOTAL 0.9 mg/dL (0.2-1.3); Calcium 8.7 mg/dL (8.4-10.2); Creatinine 1 1.79 mg/dL (0.66-1.25); EST GLOMERULAR FILTRATION RATE 38.6 ML/MIN; MAGNESIUM 2.5 mg/dL (1.6-2.3); Potassium 3.8 mmol/L (3.5-5.1); Total Protein 6.8 g/dL (6.3-8.2)
--- NOTE | 2022-04-06 09:31 | PCM.DS ---
Discharge Summary Date of Admission: 04/04/22 00:52 Admitting Physician: CATRACHITO MARSHALL Consults: Consults on Case 04/04/22 08:57 Consult Tele-Health [Tele-Health Consult] ROUTINE 04/04/22 14:13 Consult,Ira [Psychiatric Consult] STAT 04/04/22 14:22 Tele-Health Consult ROUTINE Primary Care Provider: ROB LIZAMA Allergies Allergies lorazepam [From Ativan] Adverse Reaction (Verified 04/04/22 23:04) agitation and hallucinations Hospital Summary - Hospital Course Hospital Course: patient with a history of worsening dementia, had covid 8/18 and was hospitalized. he has been having visual and auditory hallucinations and paranoia which has been escalating and worsening in the last 2-3 weeks. he currently has no medical issue to explain delirium, urine is clear, chest xray is normal and all of his labs are at baseline. he had a positive covid PCR which is not unexpected 1 month out from known infection, f/u binax is negative so he does not have an active infection and is not shedding virus or infectious at this time. he has been recommended to be transferred for geriatric psych service, has been receiving risperdal without improvement. he takes multaq which limits treatment options. I feel strongly he needs targeted psych therapy. his myrbetriq has been discontinued and dose of pramipexole reduced without improvement in cognitive situation. - Vitals & Intake/Output Vital Signs: Vital Signs Temperature 97.1 F 04/06/22 07:47 Pulse Rate 66 04/06/22 07:47 Respiratory Rate 16 04/06/22 07:47 Blood Pressure 128/73 04/06/22 07:47 O2 Sat by Pulse Oximetry 98 04/06/22 07:47 Intake & Output: Intake & Output 04/03/22 04/04/22 04/05/22 04/06/22 11:59 11:59 11:59 11:59 Intake Total 240 1520 1020 Balance 240 1520 1020 Weight 90.7 kg 90.7 kg 89.6 kg - Lab Result Diagrams: 04/06/22 05:14 04/06/22 05:14 Lab Results-Last 24 Hrs: Lab Results-Last 24 Hours 04/04/22 04/05/22 04/05/22 Range/Units 09:05 09:17 09:17 WBC 10.1 (4.0-10.5) x10^3/uL RBC 4.21 (4.1-5.6) x10^6/uL Hgb 12.7 (12.5-18.0) g/dL Hct 37.6 L (42-50) % MCV 89.3 (78-100) fL MCH 30.2 (26-32) pg MCHC 33.8 (32-36) g/dL RDW 13.9 (11.5-14.0) % Plt Count 316 (150-450) x10^3/uL MPV 10.7 (7.5-11.0) fL Gran % 74.3 H (36.0-66.0) % Immature Gran % (Auto) 0.5 H (0.00-0.4) % Nucleat RBC Rel Count 0.0 (0.00-0.1) % Eos # (Auto) 0.16 (0-0.5) x10^3/uL Immature Gran # (Auto) 0.05 H (0.00-0.03) x10^3u/L Absolute Lymphs (auto) 1.80 (1.0-4.6) x10^3/uL Absolute Monos (auto) 0.50 (0.0-1.3) x10^3/uL Absolute Nucleated RBC 0.00 (0.00-0.01) x10^3u/L Lymphocytes % 17.9 L (24.0-44.0) % Monocytes % 5.0 (0.0-12.0) % Eosinophils % 1.6 (0.00-5.0) % Basophils % 0.7 (0.0-0.4) % Absolute Granulocytes 7.48 H (1.4-6.9) x10^3/uL Basophils # 0.07 (0-0.4) x10^3/uL Sodium 141 (137-145) mmol/L Potassium 3.9 (3.5-5.1) mmol/L Chloride 103 (98-107) mmol/L Carbon Dioxide 29 (22-30) mmol/L Anion Gap 12.9 (5-15) MEQ/L BUN 48 H (9-20) mg/dL Creatinine 1.86 H (0.66-1.25) mg/dL Estimated GFR 36.9 ML/MIN Glucose 137 H (74-106) mg/dL Calcium 8.9 (8.4-10.2) mg/dL Magnesium (1.6-2.3) mg/dL Total Bilirubin 0.90 (0.2-1.3) mg/dL AST 30 (17-59) U/L ALT 24 (0-50) U/L Alkaline Phosphatase 102 (38-126) U/L Serum Total Protein 7.8 (6.3-8.2) g/dL Albumin 4.4 (3.5-5.0) g/dL RPR Non Reactive (Non Reactive) Influenza Type A Ag (NEGATIVE) Influenza Type B Ag (NEGATIVE) SARS-CoV-2 Ag (Rapid) (NEGATIVE) SARS-CoV-2 Antigen (NEGATIVE) 04/05/22 04/05/22 04/06/22 Range/Units 09:32 10:45 05:14 WBC 7.5 (4.0-10.5) x10^3/uL RBC 3.84 L (4.1-5.6) x10^6/uL Hgb 11.5 L (12.5-18.0) g/dL Hct 34.6 L (42-50) % MCV 90.1 (78-100) fL MCH 29.9 (26-32) pg MCHC 33.2 (32-36) g/dL RDW 13.4 (11.5-14.0) % Plt Count 253 (150-450) x10^3/uL MPV 9.2 (7.5-11.0) fL Gran % 75.0 H (36.0-66.0) % Immature Gran % (Auto) 0.4 (0.00-0.4) % Nucleat RBC Rel Count 0.0 (0.00-0.1) % Eos # (Auto) 0.09 (0-0.5) x10^3/uL Immature Gran # (Auto) 0.03 (0.00-0.03) x10^3u/L Absolute Lymphs (auto) 1.30 (1.0-4.6) x10^3/uL Absolute Monos (auto) 0.41 (0.0-1.3) x10^3/uL Absolute Nucleated RBC 0.00 (0.00-0.01) x10^3u/L Lymphocytes % 17.3 L (24.0-44.0) % Monocytes % 5.4 (0.0-12.0) % Eosinophils % 1.2 (0.00-5.0) % Basophils % 0.7 (0.0-0.4) % Absolute Granulocytes 5.65 (1.4-6.9) x10^3/uL Basophils # 0.05 (0-0.4) x10^3/uL Sodium (137-145) mmol/L Potassium (3.5-5.1) mmol/L Chloride (98-107) mmol/L Carbon Dioxide (22-30) mmol/L Anion Gap (5-15) MEQ/L BUN (9-20) mg/dL Creatinine (0.66-1.25) mg/dL Estimated GFR ML/MIN Glucose (74-106) mg/dL Calcium (8.4-10.2) mg/dL Magnesium (1.6-2.3) mg/dL Total Bilirubin (0.2-1.3) mg/dL AST (17-59) U/L ALT (0-50) U/L Alkaline Phosphatase (38-126) U/L Serum Total Protein (6.3-8.2) g/dL Albumin (3.5-5.0) g/dL RPR (Non Reactive) Influenza Type A Ag NEGATIVE (NEGATIVE) Influenza Type B Ag NEGATIVE (NEGATIVE) SARS-CoV-2 Ag (Rapid) NEGATIVE (NEGATIVE) SARS-CoV-2 Antigen POSITIVE A* (NEGATIVE) 04/06/22 Range/Units 05:14 WBC (4.0-10.5) x10^3/uL RBC (4.1-5.6) x10^6/uL Hgb (12.5-18.0) g/dL Hct (42-50) % MCV (78-100) fL MCH (26-32) pg MCHC (32-36) g/dL RDW (11.5-14.0) % Plt Count (150-450) x10^3/uL MPV (7.5-11.0) fL Gran % (36.0-66.0) % Immature Gran % (Auto) (0.00-0.4) % Nucleat RBC Rel Count (0.00-0.1) % Eos # (Auto) (0-0.5) x10^3/uL Immature Gran # (Auto) (0.00-0.03) x10^3u/L Absolute Lymphs (auto) (1.0-4.6) x10^3/uL Absolute Monos (auto) (0.0-1.3) x10^3/uL Absolute Nucleated RBC (0.00-0.01) x10^3u/L Lymphocytes % (24.0-44.0) % Monocytes % (0.0-12.0) % Eosinophils % (0.00-5.0) % Basophils % (0.0-0.4) % Absolute Granulocytes (1.4-6.9) x10^3/uL Basophils # (0-0.4) x10^3/uL Sodium 141 (137-145) mmol/L Potassium 3.8 (3.5-5.1) mmol/L Chloride 106 (98-107) mmol/L Carbon Dioxide 26 (22-30) mmol/L Anion Gap 12.6 (5-15) MEQ/L BUN 42 H (9-20) mg/dL Creatinine 1.79 H (0.66-1.25) mg/dL Estimated GFR 38.6 ML/MIN Glucose 111 H (74-106) mg/dL Calcium 8.7 (8.4-10.2) mg/dL Magnesium 2.5 H (1.6-2.3) mg/dL Total Bilirubin 0.90 (0.2-1.3) mg/dL AST 23 (17-59) U/L ALT 22 (0-50) U/L Alkaline Phosphatase 96 (38-126) U/L Serum Total Protein 6.8 (6.3-8.2) g/dL Albumin 4.2 (3.5-5.0) g/dL RPR (Non Reactive) Influenza Type A Ag (NEGATIVE) Influenza Type B Ag (NEGATIVE) SARS-CoV-2 Ag (Rapid) (NEGATIVE) SARS-CoV-2 Antigen (NEGATIVE) - Radiology Exams Ordered Rad Exams-Entire Visit: Radiology Procedures Category Date Time Status HEAD WITHOUT CONTRAST [CT] Stat Exams 04/04/22 08:50 Completed - Procedures and Test Procedures and Tests throughout Hospitalization: Therapy Orders & Screens 04/04/22 05:07 Respiratory Therapy Assessment DAILY Comment: Diagnosis: CP R/O, acute ME, hallucinations Discharge Exam General Appearance: no apparent distress Neurologic Exam: alert, cooperative, No oriented x 3 (oriented to place and self) Respiratory Exam: normal breath sounds, lungs clear, No respiratory distress Cardiovascular Exam: regular rate/rhythm, normal heart sounds Gastrointestinal/Abdomen Exam: soft, No tenderness, No mass Skin Exam: normal color, warm, dry Final Diagnosis/Problem List - Final Discharge Diagnosis/Problem (1) 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 it should be noted that every attempt has been made to get him necessary services. patient is medically stable and cleared at this time. he has had neurology consult and appropriate testing. there is no acute medical issue to explain his current hallucinations. he desperately needs psych services at this time. Code(s): F03.90 - UNSPECIFIED DEMENTIA WITHOUT BEHAVIORAL DISTURBANCE (2) Hallucination Current Visit: Yes Status: Acute Code(s): R44.3 - HALLUCINATIONS, UNSPECIFIED (3) Chest pain, rule out acute myocardial infarction Current Visit: Yes Status: Acute Assessment & Plan: patient c/o some pain prior to admission, none since admission and ME has been ruled out. he is stable Code(s): R07.9 - CHEST PAIN, UNSPECIFIED (4) Chronic kidney disease Current Visit: Yes Status: Acute Assessment & Plan: GFR has been stable and in the current range for the last 2 years, this is not an acute issue and is stable. again, patient is medically cleared. Code(s): N18.9 - CHRONIC KIDNEY DISEASE, UNSPECIFIED (5) Lab test positive for detection of COVID-19 virus Current Visit: Yes Status: Acute Assessment & Plan: positive PCR with clinical signs of infection present on 03/03, current hospital positive PCR is not unexpected with primary infection 1month ago, binax antigen is negative. he does not have active covid infection. Code(s): U07.1 - COVID-19 - Discharge Disposition: XFER OTHER Condition: Stable Prescriptions: New Risperidone 1 mg [Risperdal 1 MG] 1 mg PO HS #30 tablet Risperidone 1 mg [Risperdal 1 MG] 0.5 mg PO QAM #30 tablet Continue Tamsulosin HCl 0.4 mg PO BID Metoprolol Succinate 50 mg PO DAILY Furosemide 40 mg PO BID Finasteride 5 mg PO HS Dronedarone HCl [Multaq] 400 mg PO BID allopurinoL [Allopurinol] 300 mg PO HS Apixaban [Eliquis] 2.5 mg PO BID Vit A/Vit C/Vit E/Zinc/Copper [Preservision Areds Softgel] 1 cap PO BID Levothyroxine Sodium 100 Mcg [Synthroid 100 Mcg] 100 mcg PO DAILY Telmisartan/Hydrochlorothiazid [Micardis Hct 80-12.5 mg Tablet] 1 tab PO QHS Multivitamin with Minerals [One Daily Complete] 1 tab PO DAILY Brimonidine Tartrate/Timolol [Combigan 0.2%-0.5% Eye Drops] 1 drop OP BID Changed Pramipexole Di-HCl [Mirapex] 0.5 mg PO HS #30 tablet Discontinued Mirabegron [Myrbetriq] 50 mg PO DAILY Pramipexole Di-HCl [Pramipexole Dihydrochloride] 1.5 mg PO DAILY Follow up with: ROB LIZAMA MD [Primary Care Provider] -
[2022-04-06] MEDS: Toprol Xl 50 MG PO SCH (10:02)
[2022-04-06] MEDS: Flomax 0.4 MG PO SCH (10:02)
[2022-04-06] MEDS: Multaq 400 MG PO SCH (10:02)
[2022-04-06] MEDS: SYNTHROID 100 MCG PO SCH (10:03)
[2022-04-06] MEDS: ELIQUIS 2.5 MG TABLET PO SCH (10:03)
[2022-04-06] MEDS: Pepcid 20 MG VIAL IV SCH (10:03)
[2022-04-06] MEDS: Risperdal 1 MG PO SCH (10:03)
[2022-04-06 12:01] VITALS: BP 143/66; PULSE 60; O2SAT 99
== END 2022-04-06 14:58 ==
LOC: ED 21:18 → MED SURG 04-04 00:52
PROVIDERS: ADMIT General Practice; ATTEND Family Medicine
DX: F03.90 Unspecified dementia, unspecified severity, without behavioral disturbance, psychotic disturbance, mood disturbance, and anxiety (principal); R44.3 Hallucinations, unspecified; R07.9 Chest pain, unspecified; I12.9 Hypertensive chronic kidney disease with stage 1 through stage 4 chronic kidney disease, or unspecified chronic kidney disease; N18.9 Chronic kidney disease, unspecified; U07.1 COVID-19; E78.00 Pure hypercholesterolemia, unspecified; Z79.899 Other long term (current) drug therapy; Z20.828 Contact with and (suspected) exposure to other viral communicable diseases; Z79.01 Long term (current) use of anticoagulants; Z85.828 Personal history of other malignant neoplasm of skin
CPT/HCPCS: 0241U; 36000; 36415; 70450; 71045; 80053; 80307; 81015; 82607; 82746; 83735; 83880; 84443; 84484; 85025; 86592; 90791; 93005; 93041; 99285; G0480; Q3014; 87428; 87811; 93268; A9270-GY; G0378

== ENCOUNTER 2022-06-07 17:03 | Emergency (ER) | payer MEDICARE ==
--- NOTE | 2022-06-07 17:36 | ERPHSYRPT ---
- History of Present Illness Time Seen by Provider: 06/07/22 17:36 Historian: patient, family Exam Limitations: no limitations Physician History: This is an 86-year-old white male patient of Dr. Cid who was brought into the emergency department by private vehicle in stable condition but was concerned because he noticed a small amount of blood in diarrheal stool. This occurred earlier today. Patient was constipated earlier today so he took [employer] milk of magnesia. There was no effect within a few hours and therefore he had his give him an enema. Patient is on Eliquis. He did not any rectal bleeding prior to the use of an enema. There was only a small amount and brief. He has no further bleeding rectally. He is now passing flatus and liquid stools. He has no chest pain. He has no abdominal pain. Activities at Onset: none Severity of Pain-Max: none Severity of Pain-Current: none Associated Symptoms: diarrhea (After the use of [employer] milk of magnesia and enema rectally prior to arrival) Previous symptoms: no prior history Allergies/Adverse Reactions: pramipexole Allergy (Verified 06/07/22 17:39) lorazepam [From Ativan] Adverse Reaction (Verified 06/07/22 17:39) agitation and hallucinations Home Medications: Dronedarone HCl [Multaq] 200 mg PO BID 04/22/19 [History] Finasteride 5 mg PO HS 04/22/19 [History] Furosemide 40 mg PO BID 04/22/19 [History] Metoprolol Succinate 50 mg PO DAILY 04/22/19 [History] Tamsulosin HCl 0.4 mg PO DAILY 04/22/19 [History] Apixaban [Eliquis] 2.5 mg PO BID 11/04/19 [History] allopurinoL [Allopurinol] 300 mg PO HS 11/04/19 [History] Levothyroxine Sodium 100 Mcg [Synthroid 100 Mcg] 100 mcg PO DAILY 08/05/20 [History] Vit A/Vit C/Vit E/Zinc/Copper [Preservision Areds Softgel] 1 cap PO DAILY 08/05/20 [History] Telmisartan/Hydrochlorothiazid [Micardis Hct 80-12.5 mg Tablet] 1 tab PO QHS 03/03/22 [History] Multivitamin with Minerals [One Daily Complete] 1 tab PO DAILY 04/03/22 [History] Hx Tetanus, Diphtheria Vaccination/Date Given: No (unsure) Hx Influenza Vaccination/Date Given: Yes Hx Pneumococcal Vaccination/Date Given: Yes Travel Risk - International Travel Have you traveled outside of the country in past 3 weeks: No - Coronavirus Screening Are you exhibiting any of the following symptoms?: No Close contact with a COVID-19 positive Pt in past 14-21 Days: No - Vaccine Status Have you recieved a Covid-19 vaccination: Yes 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[employer] - Vaccination Dates Date of 2cond Vaccination (if applicable): unknown - Review of Systems Constitutional: No Symptoms Eyes: No Symptoms Ears, Nose, & Throat: No Symptoms Respiratory: No Symptoms Cardiac: No Symptoms Abdominal/Gastrointestinal: Diarrhea, No Abdominal Pain, No Nausea, No Vomiting Genitourinary Symptoms: No Symptoms Musculoskeletal: No Symptoms Skin: No Symptoms Neurological: No Symptoms Psychological: No Symptoms Endocrine: No Symptoms Hematologic/Lymphatic: No Symptoms Immunological/Allergic: No Symptoms All Other Systems: Reviewed and Negative - Past Medical History Pertinent Past Medical History: Yes Neurological History: TIA ENT History: Other Cardiac History: Arrhythmia, High Cholesterol, Hypertension Respiratory History: No Pertinent History Endocrine Medical History: Hypothyroidism, Other Musculoskeletal History: Arthritis GI Medical History: No Pertinent History History: No Pertinent History Psycho-Social History: No Pertinent History Male Reproductive Disorders: No Pertinent History Other Medical History: 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 inguinal hernia - Social History Smoking Status: Former smoker Exposure to second hand smoke: No Drug Use: none Patient Lives Alone: No - Nursing Vital Signs Nursing Vital Signs: Initial Vital Signs Temperature 97.9 F 06/07/22 17:27 Pulse Rate 63 06/07/22 17:27 Blood Pressure 137/74 06/07/22 17:27 O2 Sat by Pulse Oximetry 99 06/07/22 17:27 Pain Scale Pain Intensity 2 - Physical Exam General Appearance: no apparent distress, alert, anxiety Eye Exam: PERRL/EOMI, eyes nml inspection Ears, Nose, Throat Exam: normal ENT inspection, moist mucous membranes Neck Exam: normal inspection, non-tender, supple, full range of motion Respiratory Exam: normal breath sounds, lungs clear, No chest tenderness, No respiratory distress Cardiovascular Exam: regular rate/rhythm, normal heart sounds, normal peripheral pulses Gastrointestinal/Abdomen Exam: soft, normal bowel sounds, No tenderness Rectal Exam: other (No blood in the anal or perianal area. 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, normal mood/affect, nml cerebellar function, nml station & gait, sensation nml Skin Exam: normal color, warm, dry Lymphatic Exam: No adenopathy SpO2 Interpretation: normal O2 Delivery: Room Air - Course Nursing assessment & vital signs reviewed: Yes Ordered Tests: Active Orders 24 hr Category Date Time Status KUB Stat Exams 06/07/22 17:53 Taken AMYLASE Stat Lab 06/07/22 17:55 Completed CBC W DIFF Stat Lab 06/07/22 17:55 Completed CMP Stat Lab 06/07/22 17:55 Completed LIPASE Stat Lab 06/07/22 17:55 Completed PT INR [PROTIME WITH INR] Stat Lab 06/07/22 17:55 Completed Lab/Rad Data: Laboratory Result Diagrams 06/07/22 17:55 06/07/22 17:55 Laboratory Results 06/07/22 06/07/22 06/07/22 Range/Units 17:55 17:55 17:55 WBC 11.0 H (4.0-10.5) x10^3/uL RBC 3.56 L (4.1-5.6) x10^6/uL Hgb 10.9 L (12.5-18.0) g/dL Hct 32.6 L (42-50) % MCV 91.6 (78-100) fL MCH 30.6 (26-32) pg MCHC 33.4 (32-36) g/dL RDW 13.2 (11.5-14.0) % Plt Count 225 (150-450) x10^3/uL MPV 9.7 (7.5-11.0) fL Gran % 80.9 H (36.0-66.0) % Immature Gran % (Auto) 0.4 (0.00-0.4) % Nucleat RBC Rel Count 0.0 (0.00-0.1) % Eos # (Auto) 0.23 (0-0.5) x10^3/uL Immature Gran # (Auto) 0.04 H (0.00-0.03) x10^3u/L Absolute Lymphs (auto) 1.26 (1.0-4.6) x10^3/uL Absolute Monos (auto) 0.49 (0.0-1.3) x10^3/uL Absolute Nucleated RBC 0.00 (0.00-0.01) x10^3u/L Lymphocytes % 11.5 L (24.0-44.0) % Monocytes % 4.5 (0.0-12.0) % Eosinophils % 2.1 (0.00-5.0) % Basophils % 0.6 (0.0-0.4) % Absolute Granulocytes 8.87 H (1.4-6.9) x10^3/uL Basophils # 0.07 (0-0.4) x10^3/uL PT 10.9 (9.4-12.5) SECONDS INR 1.03 (0.8-3.0) Sodium 142 (137-145) mmol/L Potassium 4.9 (3.5-5.1) mmol/L Chloride 104 (98-107) mmol/L Carbon Dioxide 32 H (22-30) mmol/L Anion Gap 10.9 (5-15) MEQ/L BUN 66 H (9-20) mg/dL Creatinine 2.36 H (0.66-1.25) mg/dL Estimated GFR 28.0 ML/MIN Glucose 111 H (74-106) mg/dL Calcium 8.2 L (8.4-10.2) mg/dL Total Bilirubin 0.70 (0.2-1.3) mg/dL AST 25 (17-59) U/L ALT 18 (0-50) U/L Alkaline Phosphatase 122 (38-126) U/L Serum Total Protein 7.0 (6.3-8.2) g/dL Albumin 4.3 (3.5-5.0) g/dL Amylase 54 (30-110) U/L Lipase 100 (23-300) U/L - Progress Progress: improved Progress Note: 06/07/22 18:46 KUB shows diffuse fecal stasis without obstruction. Medical decision making: This patient had constipation and used a laxative and a enema. During his stay here in the emergency department, he had a large amount of stool. His symptoms have resolved. He is hemodynamically stable. His hemoglobin is 10.9 which that is typical for him. Counseled pt/family regarding: lab results, diagnosis, need for follow-up, rad results - Departure Departure Disposition: Home Clinical Impression: Constipation Condition: Stable Critical Care Time: No Referrals: ROB CID MD [Primary Care Provider] - Follow up/PCP as directed Additional Instructions: Drink plenty of fluids. Be as active as possible. Have a discussion with your primary care physician for bowel hygiene including MiraLAX if it is indicated.
[2022-06-07 17:38] VITALS: PULSE 63
[2022-06-07 18:09] LABS: Absolute Neutrophil Ct (ANC) 8.87 x10^3/uL (1.4-6.9); Basophil (Absolute #) 0.07 x10^3/uL (0-0.4); Eosinophil % 2.1 % (0.00-5.0); Eosinophil (Absolute #) 0.23 x10^3/uL (0-0.5); Hematocrit 32.6 % (42-50); Hemoglobin 10.9 g/dL (12.5-18.0); Lymphocyte (Absolute #) 1.26 x10^3/uL (1.0-4.6); Lymphocytes % 11.5 % (24.0-44.0); Mean Cell Volume 91.6 fL (78-100); Mean Corpuscular Hemoglobin 30.6 pg (26-32); Mean Corpuscular Hgb Concent. 33.4 g/dL (32-36); Mean Platelet Volume 9.7 fL (7.5-11.0); Monocyte (Absolute #) 0.49 x10^3/uL (0.0-1.3); Monocytes % 4.5 % (0.0-12.0); Neutrophil % 80.9 % (36.0-66.0); Platelet Count 225 x10^3/uL (150-450); Red Blood Count 3.56 x10^6/uL (4.1-5.6); Red Cell Distribution Width 13.2 % (11.5-14.0)
[2022-06-07 18:35] LABS: ALBUMIN 4.3 g/dL (3.5-5.0); ANION GAP 10.9 MEQ/L (5-15); BILIRUBIN,TOTAL 0.7 mg/dL (0.2-1.3); Calcium 8.2 mg/dL (8.4-10.2); Creatinine 1 2.36 mg/dL (0.66-1.25); INR 1.03 (0.8-3.0); PROTIME 10.9 SECONDS (9.4-12.5); Potassium 4.9 mmol/L (3.5-5.1)
[2022-06-07 18:43] VITALS: BP 133/70; O2SAT 97
--- NOTE | 2022-06-08 08:41 | XRAY ---
Indication: Constipation. Comparison: None KUB nonacute and nonobstructed with mild diffuse scattered colonic fecal debris. Solid organs unremarkable. Osseous structures intact with osteopenia, moderate multilevel degenerative spondylosis, and mild levoscoliosis centered at L3.
== END 2022-06-07 18:57 | disposition home or self-care (01) ==
LOC: ED 17:03
DX: K59.00 Constipation, unspecified (principal); K92.1 Melena; E78.5 Hyperlipidemia, unspecified; I10 Essential (primary) hypertension; Z79.01 Long term (current) use of anticoagulants; Z79.899 Other long term (current) drug therapy
CPT/HCPCS: 36415; 74018; 80053; 82150; 83690; 85025; 85610; 99283

== ENCOUNTER 2024-02-13 20:19 | Emergency (ER) | payer MEDICARE ==
[2024-02-13 20:23] VITALS: RESP 16; TEMP 98.3; O2SAT 100
[2024-02-13 20:53] LABS: Absolute Neutrophil Ct (ANC) 4.94 x10^3/uL (1.78-5.38); BASOPHIL % 0.5 % (0.2-1.2); Basophil (Absolute #) 0.04 x10^3/uL (0.01-0.08); Eosinophil % 2.3 % (0.8-7.0); Eosinophil (Absolute #) 0.17 x10^3/uL (0.04-0.54); Hematocrit 31.6 % (40.1-51.0); Hemoglobin 10.3 g/dL (13.7-17.5); IMMATURE GRAN # 0.03 x10^3u/L (0.001-0.031); IMMATURE GRAN % 0.4 % (0.001-0.429); Lymphocyte (Absolute #) 1.67 x10^3/uL (1.32-3.57); Lymphocytes % 22.8 % (21.8-53.1); Mean Cell Volume 99.1 fL (79.0-92.2); Mean Corpuscular Hemoglobin 32.3 pg (25.7-32.2); Mean Corpuscular Hgb Concent. 32.6 g/dL (32.3-36.5); Mean Platelet Volume 9.7 fL (9.4-12.4); Monocyte (Absolute #) 0.49 x10^3/uL (0.30-0.82); Monocytes % 6.7 % (5.3-12.2); Neutrophil % 67.3 % (34.0-67.9); Platelet Count 199 x10^3/uL (163-337); Red Blood Count 3.19 x10^6/uL (4.63-6.08); Red Cell Distribution Width 13.2 % (11.6-14.4); White Blood Count 7.3 x10^3/uL (4.23-9.07)
[2024-02-13 21:17] LABS: ALBUMIN 4.3 g/dL (3.5-5.0); BILIRUBIN,TOTAL 0.5 mg/dL (0.2-1.3); Calcium 8.8 mg/dL (8.4-10.2); Creatinine 1 2.07 mg/dL (0.66-1.25); EST GLOMERULAR FILTRATION RATE 30.4 ML/MIN; Potassium 3.6 mmol/L (3.5-5.1); Total Protein 6.6 g/dL (6.3-8.2)
--- NOTE | 2024-02-13 21:38 | ERPHSYRPT ---
- History of Present Illness Time Seen by Provider: 02/13/24 20:30 Source: patient Exam Limitations: no limitations Patient Subjective Stated Complaint: chest pressure/epigastric pain Triage Nursing Assessment: pt brought back in wheelchair, assist x2 from wheelchair to bed. Pt c/o upper epigastric pain/chest pressure that occured around 1830 after eating [place] food. Pt denies any pain at this time. Lungs clear, heart tones reg/lorene, abd soft with active bs x4. Pt has large hernia which pushes up on abd area. No edema noted. Pt has chronic back pain and sees Dr. Moody for that. Physician History: 88-year-old male presents to the emergency department for evaluation of epigastric lower chest pain. Symptoms started approximately 630 after a meal. Patient describes an ache that is localized no radiation. No associated nausea vomiting or diaphoresis. Patient states the pain is since resolved. He a ctively has no pain at this time. When present symptoms are moderate in intensity. No specific worsening or improving factors although patient correlated his symptoms with his meal. Patient otherwise feels well. at bedside. They voiced no other complaints or concerns at this time. Portions of this note were created with voice recognition technology. There may be grammatical, spelling, punctuation or sound alike errors Timing/Duration: today Severity: moderate Modifying Factors: Improves With: nothing Associated Symptoms: denies symptoms Allergies/Adverse Reactions: pramipexole Allergy (Verified 02/13/24 20:47) lorazepam [From Ativan] Adverse Reaction (Verified 02/13/24 20:47) agitation and hallucinations Home Medications: Dronedarone HCl [Multaq] 200 mg PO HS 04/22/19 [History] Finasteride 5 mg PO HS 04/22/19 [History] Furosemide 20 mg PO BID 04/22/19 [History] Metoprolol Succinate 50 mg PO HS 04/22/19 [History] Tamsulosin HCl 0.4 mg PO HS 04/22/19 [History] Apixaban [Eliquis] 2.5 mg PO BID 11/04/19 [History] allopurinoL [Allopurinol] 300 mg PO HS 11/04/19 [History] Levothyroxine Sodium 100 Mcg [Synthroid 100 Mcg] 100 mcg PO DAILY 08/05/20 [History] Vit A/Vit C/Vit E/Zinc/Copper [Preservision Areds Softgel] 1 cap PO BID 08/05/20 [History] Telmisartan/Hydrochlorothiazid [Micardis Hct 80-12.5 mg Tablet] 1 tab PO QHS 03/03/22 [History] Multivitamin with Minerals [One Daily Complete] 1 tab PO DAILY 04/03/22 [History] Ropinirole HCl 3 mg PO HS 02/13/24 [History] Hx Tetanus, Diphtheria Vaccination/Date Given: Yes Hx Influenza Vaccination/Date Given: Yes Hx Pneumococcal Vaccination/Date Given: Yes Immunizations Up to Date: Yes Travel Risk - International Travel Have you traveled outside of the country in past 3 weeks: No - Emerging Infectious Disease Are you exhibiting symptoms associated with any current EIDs: No - Review of Systems Constitutional: No Symptoms, No Fever, No Chills Eyes: No Symptoms Ears, Nose, & Throat: No Symptoms Respiratory: No Symptoms, No Cough, No Dyspnea Cardiac: No Symptoms, No Chest Pain, No Edema, No Syncope Abdominal/Gastrointestinal: No Symptoms, No Abdominal Pain, No Nausea, No Vomiting, No Diarrhea Genitourinary Symptoms: No Symptoms, No Dysuria Musculoskeletal: No Symptoms, No Back Pain, No Neck Pain Skin: No Symptoms, No Rash Neurological: No Symptoms, No Dizziness, No Focal Weakness, No Sensory Changes Psychological: No Symptoms Endocrine: No Symptoms Hematologic/Lymphatic: No Symptoms Immunological/Allergic: No Symptoms All Other Systems: Reviewed and Negative - Past Medical History Pertinent Past Medical History: Yes Neurological History: Dementia ENT History: Other Cardiac History: Hypertension Respiratory History: No Pertinent History Endocrine Medical History: Other Musculoskeletal History: Osteoarthritis GI Medical History: No Pertinent History History: Renal Disease Psycho-Social History: No Pertinent History Male Reproductive Disorders: No Pertinent History Other Medical History: PART OF THYROID REMOVED, KIDNEY PROBLEMS, CHRONIC BACK PROBLEMS - Past Surgical History Past Surgical History: Yes Neuro Surgical History: No Pertinent History Cardiac: No Pertinent History Respiratory: No Pertinent History Gastrointestinal: No Pertinent History Genitourinary: No Pertinent History Musculoskeletal: No Pertinent History Male Surgical History: No Pertinent History Other Surgical History: partial thyroidectomy. inguinal hernia - Social History Smoking Status: Former smoker Exposure to second hand smoke: No Drug Use: none Patient Lives Alone: No - Social Determinants of Health Will the patient participate in the screening: Yes Do you worry about a steady place to live?: No Do you have any problems with any of the following?: No known problems In the past 12 months,have you had to go without utilities?: No Transportation Issues: No Has anyone in your support network made you feel unsafe?: No Have you or anyone in your house had to go without enough: No - Nursing Vital Signs Nursing Vital Signs: Initial Vital Signs Temperature 98.3 F 02/13/24 20:21 Pulse Rate 57 L 02/13/24 20:21 Respiratory Rate 16 02/13/24 20:21 Blood Pressure 170/71 02/13/24 20:21 O2 Sat by Pulse Oximetry 100 02/13/24 20:21 Pain Scale Pain Intensity 0 - Physical Exam General Appearance: no apparent distress, alert Eye Exam: PERRL/EOMI, eyes nml inspection Ears, Nose, Throat Exam: normal ENT inspection, pharynx normal, moist mucous membranes Neck Exam: normal inspection, non-tender, supple, full range of motion Respiratory Exam: normal breath sounds, lungs clear, airway intact, No respiratory distress Cardiovascular Exam: regular rate/rhythm, normal heart sounds, normal peripheral pulses Gastrointestinal/Abdomen Exam: soft, normal bowel sounds, No tenderness, No mass Back Exam: normal inspection, normal range of motion, No CVA tenderness, No vertebral tenderness Extremity Exam: normal inspection, normal range of motion, pelvis stable Neurologic Exam: alert, oriented x 3, cooperative, normal mood/affect, sensation nml, No motor deficits Skin Exam: normal color, warm, dry, No rash Lymphatic Exam: No adenopathy SpO2 Interpretation: normal SpO2: 100 O2 Delivery: Room Air - Course Nursing assessment & vital signs reviewed: Yes EKG Interpreted by Me: RATE (56), Sinus Rhythm, NORMAL AXIS, NORMAL INTERVALS - Radiology Exams Chest X-ray Interpretation: Interpreted by me (No acute findings. Similar to previous.) Ordered Tests: Active Orders 24 hr Category Date Time Status AMA [Release AMA] OM.NOW Care 02/13/24 22:31 Active Casting Technician STAT Care 02/13/24 20:44 Active EKG-ER Only STAT Care 02/13/24 20:44 Active IV Insertion STAT Care 02/13/24 20:44 Active Pulse Oximetry (ED) STAT Care 02/13/24 20:44 Active CHEST 1 VIEW (PORTABLE) Stat Exams 02/13/24 20:44 Taken CBC W DIFF Stat Lab 02/13/24 20:35 Completed CMP Stat Lab 02/13/24 20:35 Completed LIPASE Stat Lab 02/13/24 20:35 Completed NT PRO BNPII Stat Lab 02/13/24 20:35 Completed TROPONIN Q4H Lab 02/13/24 20:35 Completed TROPONIN Q4H Lab 02/14/24 00:45 Ordered TROPONIN Q4H Lab 02/14/24 04:45 Ordered Lab/Rad Data: Laboratory Result Diagrams 02/13/24 20:35 02/13/24 20:35 Laboratory Results 02/13/24 02/13/24 02/13/24 Range/Units 20:35 20:35 20:35 WBC (4.23-9.07) x10^3/uL RBC (4.63-6.08) x10^6/uL Hgb (13.7-17.5) g/dL Hct (40.1-51.0) % MCV (79.0-92.2) fL MCH (25.7-32.2) pg MCHC (32.3-36.5) g/dL RDW (11.6-14.4) % Plt Count (163-337) x10^3/uL MPV (9.4-12.4) fL Gran % (34.0-67.9) % Immature Gran % (Auto) (0.001-0.429) % Nucleat RBC Rel Count (0.00-0.2) % Eos # (Auto) (0.04-0.54) x10^3/uL Immature Gran # (Auto) (0.001-0.031) x10^3u/L Absolute Lymphs (auto) (1.32-3.57) x10^3/uL Absolute Monos (auto) (0.30-0.82) x10^3/uL Absolute Nucleated RBC (0.00-0.012) x10^3u/L Lymphocytes % (21.8-53.1) % Monocytes % (5.3-12.2) % Eosinophils % (0.8-7.0) % Basophils % (0.2-1.2) % Absolute Granulocytes (1.78-5.38) x10^3/uL Basophils # (0.01-0.08) x10^3/uL Sodium 142 (135-145) mmol/L Potassium 3.6 (3.5-5.1) mmol/L Chloride 99 (98-107) mmol/L Carbon Dioxide 33 H (22-30) mmol/L Anion Gap 13.0 (5-15) MEQ/L BUN 60 H (9-20) mg/dL Creatinine 2.07 H (0.66-1.25) mg/dL Estimated GFR 30.4 ML/MIN Glucose 111 H (74-106) mg/dL Calcium 8.8 (8.4-10.2) mg/dL Total Bilirubin 0.50 (0.2-1.3) mg/dL AST 29 (17-59) U/L ALT 27 (0-50) U/L Alkaline Phosphatase 132 H (38-126) U/L Troponin I < 0.012 (0.000-0.033) ng/mL NT-Pro-B Natriuret Pep 624 (<300) pg/mL Serum Total Protein 6.6 (6.3-8.2) g/dL Albumin 4.3 (3.5-5.0) g/dL Lipase 137 (23-300) U/L // Range/Units 20:35 WBC 7.3 (4.23-9.07) x10^3/uL RBC 3.19 L (4.63-6.08) x10^6/uL Hgb 10.3 L (13.7-17.5) g/dL Hct 31.6 L (40.1-51.0) % MCV 99.1 H (79.0-92.2) fL MCH 32.3 H (25.7-32.2) pg MCHC 32.6 (32.3-36.5) g/dL RDW 13.2 (11.6-14.4) % Plt Count 199 (163-337) x10^3/uL MPV 9.7 (9.4-12.4) fL Gran % 67.3 (34.0-67.9) % Immature Gran % (Auto) 0.4 (0.001-0.429) % Nucleat RBC Rel Count 0.0 (0.00-0.2) % Eos # (Auto) 0.17 (0.04-0.54) x10^3/uL Immature Gran # (Auto) 0.03 (0.001-0.031) x10^3u/L Absolute Lymphs (auto) 1.67 (1.32-3.57) x10^3/uL Absolute Monos (auto) 0.49 (0.30-0.82) x10^3/uL Absolute Nucleated RBC 0.00 (0.00-0.012) x10^3u/L Lymphocytes % 22.8 (21.8-53.1) % Monocytes % 6.7 (5.3-12.2) % Eosinophils % 2.3 (0.8-7.0) % Basophils % 0.5 (0.2-1.2) % Absolute Granulocytes 4.94 (1.78-5.38) x10^3/uL Basophils # 0.04 (0.01-0.08) x10^3/uL Sodium (135-145) mmol/L Potassium (3.5-5.1) mmol/L Chloride (98-107) mmol/L Carbon Dioxide (22-30) mmol/L Anion Gap (5-15) MEQ/L BUN (9-20) mg/dL Creatinine (0.66-1.25) mg/dL Estimated GFR ML/MIN Glucose (74-106) mg/dL Calcium (8.4-10.2) mg/dL Total Bilirubin (0.2-1.3) mg/dL AST (17-59) U/L ALT (0-50) U/L Alkaline Phosphatase (38-126) U/L Troponin I (0.000-0.033) ng/mL NT-Pro-B Natriuret Pep (<300) pg/mL Serum Total Protein (6.3-8.2) g/dL Albumin (3.5-5.0) g/dL Lipase (23-300) U/L - Progress Progress: improved Progress Note: 88-year-old male presents to our ED for evaluation of chest pain. Preliminary workup negative including normal troponin. Patient has been asymptomatic since his arrival to our ED. Patient is now stating that he never had chest pain it was back pain. Patient requesting discharge. Patient will leave AMA. Patient states he has no chest pain at this time or back pain. He is requesting discharge because he feels well. Per patient's request we will discharge patient home AGAINST MEDICAL ADVICE. Patient is of sound mind. Patient is appropriate to make informed and independent medical decisions. Patient understands that leaving AGAINST MEDICAL ADVICE can result in delayed diagnosis, increased risk of morbidity, mortality, short and long-term disability including . In spite of these risks, patient has decided to leave AGAINST MEDICAL ADVICE. Patient understands that he may return to our ED at any point if he reconsiders. Patient agrees to follow-up with his primary care doctor within 48 hours for reevaluation. Patient voices no other complaints or concerns at this time. We will release patient AGAINST MEDICAL ADVICE per their request. Complexity problem addressed is moderate acute complicated. No critical care time. Complex of data reviewed and analyzed is moderate. Test ordered test reviewed results analyzed and correlated clinically with history and physical exam. Risk of complication and or risk morbidity/mortality patient management is low. Vital stable. Time spent to discharge patient is approximately 20 minutes. Plan of care established for shared decision making. No social determinants of health present impede follow-up. Portions of this note were created with voice recognition technology. There may be grammatical, spelling, punctuation or sound alike errors 02/13/24 22:31 Counseled pt/family regarding: lab results, diagnosis, need for follow-up, rad results - Departure Clinical Impression: Chronic renal insufficiency, Chest pain Condition: Stable Critical Care Time: No Referrals: ROB LIZAMA MD [Primary Care Provider] - Follow up/PCP as directed Additional Instructions: Discharge/Care Plan BEATRIZ LEDESMA was seen on 02/13/24 in the Emergency Room. The patient was counseled regarding Diagnosis,Lab results, Imaging studies, need for follow up and when to return to the Emergency Room. Prescriptions given: Discharge Note I have spoken with the patient and/or caregivers. I have explained the patient's condition, diagnosis and treatment plan based on the information available to me at this time. I have answered the patient's and/or caregiver's questions and addressed any concerns. The patient and/or caregivers have as good understanding of the patient's diagnosis, condition and treatment plan as can be expected at this point. The vital signs have been stable. The patient's condition is stable and appropriate for discharge from the emergency department. The patient will pursue further outpatient evaluation with the primary care physician or other designated or consulting physician as outlined in the discharge instructions. The patient and/or caregivers are agreeable to this plan of care and follow-up instructions have been explained in detail. The patient and/or caregivers have received these instruction. The patient/and or caregivers are aware that any significant change in condition or worsening of symptoms should prompt an immediate return to this or the closest emergency department or call 911.
[2024-02-13 22:26] VITALS: BP 165/72; PULSE 58
--- NOTE | 2024-02-14 08:36 | XRAY ---
Indication: Pain. Comparison: April 03, 2022 Portable chest inflated and remains clear. Heart not enlarged. Bony thorax intact again with osteopenia and mild degenerative changes. Impression: Continued nonacute chest.
== END 2024-02-13 22:45 | disposition left against medical advice (07) ==
LOC: ED 20:19
DX: I12.9 Hypertensive chronic kidney disease with stage 1 through stage 4 chronic kidney disease, or unspecified chronic kidney disease (principal); N18.9 Chronic kidney disease, unspecified; R07.9 Chest pain, unspecified; R10.13 Epigastric pain; Z79.01 Long term (current) use of anticoagulants; Z79.899 Other long term (current) drug therapy
CPT/HCPCS: 36000; 36415; 71045; 80053; 83690; 83880; 84484; 85025; 93005; 93041; 94760; 99284

== ENCOUNTER 2024-04-17 10:45 | Emergency (ER) | payer MEDICARE ==
--- NOTE | 2024-04-17 10:52 | ERPHSYRPT ---
- History of Present Illness Time Seen by Provider: 04/17/24 10:52 Source: patient, family Physician History: This is an 88-year-old white male patient brought into the emergency department by private vehicle escorted by family and is a patient of Dr. Lizama. Patient was brought in because of worsening hallucinations over the last 2 weeks. Patient states he is seeing people and "animals" that are not there. Family states he is actually talking to them. Patient had a similar episode approx imately 2 years ago and there was a change in his medication list which helped resolve the hallucination issues. Patient has recently been treated for urinary tract infection. He has completed that treatment. He has also started on gabapentin to treat restless leg syndrome. Patient states that as recent as a couple days ago he has had a headache. He states he never gets headaches. He denies trauma or injury to his head. Patient does see a pain specialist for restless leg syndrome. Patient has a history of gout, prostate issues, hypothyroidism, hypertension, dementia, chronic low back pain, chronic renal disease. He denies chest pain. He denies shortness of breath. He denies abdominal pain. He said no recent nausea vomiting or diarrhea symptoms. Timing/Duration: week(s) (2), worse Severity: mild Associated Symptoms: denies symptoms Allergies/Adverse Reactions: pramipexole Allergy (Verified 04/17/24 11:07) lorazepam [From Ativan] Adverse Reaction (Verified 04/17/24 11:07) agitation and hallucinations Home Medications: Finasteride 5 mg PO HS 04/22/19 [History] Metoprolol Succinate 50 mg PO HS 04/22/19 [History] Tamsulosin HCl 0.4 mg PO HS 04/22/19 [History] Apixaban [Eliquis] 2.5 mg PO BID 11/04/19 [History] allopurinoL [Allopurinol] 300 mg PO HS 11/04/19 [History] Levothyroxine Sodium 100 Mcg [Synthroid 100 Mcg] 100 mcg PO DAILY 08/05/20 [History] Vit A/Vit C/Vit E/Zinc/Copper [Preservision Areds Softgel] 1 cap PO BID 08/05/20 [History] Multivitamin with Minerals [One Daily Complete] 1 tab PO DAILY 04/03/22 [History] Ropinirole HCl 3 mg PO HS 02/13/24 [History] Amiodarone HCl [Pacerone] 100 mg PO DAILY 04/17/24 [History] Gabapentin [Neurontin ] 300 mg PO HS 04/17/24 [History] Telmisartan 80 mg [Micardis 80 MG Tablet] 1 tab PO HS 04/17/24 [History] Hx Tetanus, Diphtheria Vaccination/Date Given: Yes Hx Influenza Vaccination/Date Given: Yes Hx Pneumococcal Vaccination/Date Given: Yes Travel Risk - International Travel Have you traveled outside of the country in past 3 weeks: No - Emerging Infectious Disease Are you exhibiting symptoms associated with any current EIDs: No - Review of Systems Constitutional: No Symptoms Eyes: No Symptoms Ears, Nose, & Throat: No Symptoms Respiratory: No Symptoms Cardiac: No Symptoms Abdominal/Gastrointestinal: No Symptoms Genitourinary Symptoms: No Symptoms Musculoskeletal: No Symptoms Neurological: Headache (Patient headache but none now) Psychological: Hallucinations (Visual) Endocrine: No Symptoms Hematologic/Lymphatic: No Symptoms Immunological/Allergic: No Symptoms All Other Systems: Reviewed and Negative - Past Medical History Pertinent Past Medical History: Yes Neurological History: Peripheral Neuropathy, Stroke, TIA ENT History: Other Cardiac History: Other Respiratory History: No Pertinent History, Other Endocrine Medical History: Hypothyroidism Musculoskeletal History: Osteoarthritis GI Medical History: No Pertinent History History: Renal Disease Psycho-Social History: No Pertinent History Male Reproductive Disorders: No Pertinent History Other Medical History: NEUROPATHY IN L LE AND L HAND. RESTLESS LEG SYNDROME. RENAL INSUFFICIENCY. SOB. LOW BLOOD PRESSURE. - Past Surgical History Past Surgical History: Yes Neuro Surgical History: No Pertinent History Cardiac: No Pertinent History Respiratory: No Pertinent History Gastrointestinal: No Pertinent History Genitourinary: No Pertinent History Musculoskeletal: No Pertinent History Male Surgical History: No Pertinent History Other Surgical History: partial thyroidectomy. inguinal hernia - Social History Smoking Status: Former smoker Exposure to second hand smoke: No Drug Use: none Patient Lives Alone: No - Social Determinants of Health Will the patient participate in the screening: Yes Do you worry about a steady place to live?: No In the past 12 months,have you had to go without utilities?: No Transportation Issues: No Has anyone in your support network made you feel unsafe?: No Have you or anyone in your house had to go without enough: No - Nursing Vital Signs Nursing Vital Signs: Initial Vital Signs Temperature 97.1 F 04/17/24 10:52 Pulse Rate 50 L 04/17/24 10:52 Respiratory Rate 18 04/17/24 10:52 Blood Pressure 142/61 04/17/24 10:52 O2 Sat by Pulse Oximetry 100 04/17/24 10:52 Pain Scale Pain Intensity 0 - Physical Exam General Appearance: no apparent distress, alert, anxiety Eye Exam: PERRL/EOMI, eyes nml inspection Ears, Nose, Throat Exam: normal ENT inspection, moist mucous membranes Neck Exam: normal inspection, non-tender, supple, full range of motion Respiratory Exam: normal breath sounds, lungs clear, airway intact, No chest tenderness, No respiratory distress Cardiovascular Exam: regular rate/rhythm, normal heart sounds, normal peripheral pulses Gastrointestinal/Abdomen Exam: soft, normal bowel sounds, No tenderness Rectal Exam: not done Back Exam: normal inspection, normal range of motion, No CVA tenderness, No vertebral tenderness Extremity Exam: normal inspection, normal range of motion, pelvis stable Neurologic Exam: alert, oriented x 3, cooperative, contact worker lithography 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 tested, sensation nml Skin Exam: normal color, warm, dry Lymphatic Exam: No adenopathy SpO2 Interpretation: normal O2 Delivery: Room Air - Course Nursing assessment & vital signs reviewed: Yes EKG Interpreted by Me: RATE (51), Sinus Helder, NORMAL AXIS, NORMAL QRS, Other (Short NV interval. QTc is 447. No evidence of acute ischemia.) Ordered Tests: Active Orders 24 hr Category Date Time Status Command Center Analyst STAT Care 04/17/24 11:02 Active Clean Catch Urine Specimen STAT Care 04/17/24 11:01 Active EKG-ER Only STAT Care 04/17/24 11:01 Active HEAD WITHOUT CONTRAST [CT] Stat Exams 04/17/24 11:01 Completed ACETAMINOPHEN Stat Lab 04/17/24 11:17 Completed CBC W DIFF Stat Lab 04/17/24 11:17 Completed CMP Stat Lab 04/17/24 11:17 Completed ETHYL ALCOHOL Stat Lab 04/17/24 11:17 Completed SALICYLATE Stat Lab 04/17/24 11:17 Completed TSH, 3RD Generation Stat Lab 04/17/24 11:17 Completed UA W/RFX UR CULTURE Stat Lab 04/17/24 11:46 Completed Urine Triage Profile Stat Lab 04/17/24 11:46 Completed Lab/Rad Data: Laboratory Result Diagrams 04/17/24 11:17 04/17/24 11:17 Laboratory Results 04/17/24 04/17/24 04/17/24 Range/Units 11:46 11:46 11:18 WBC (4.23-9.07) x10^3/uL RBC (4.63-6.08) x10^6/uL Hgb (13.7-17.5) g/dL Hct (40.1-51.0) % MCV (79.0-92.2) fL MCH (25.7-32.2) pg MCHC (32.3-36.5) g/dL RDW (11.6-14.4) % Plt Count (163-337) x10^3/uL MPV (9.4-12.4) fL Gran % (34.0-67.9) % Immature Gran % (Auto) (0.001-0.429) % Nucleat RBC Rel Count (0.00-0.2) % Eos # (Auto) (0.04-0.54) x10^3/uL Immature Gran # (Auto) (0.001-0.031) x10^3u/L Absolute Lymphs (auto) (1.32-3.57) x10^3/uL Absolute Monos (auto) (0.30-0.82) x10^3/uL Absolute Nucleated RBC (0.00-0.012) x10^3u/L Lymphocytes % (21.8-53.1) % Monocytes % (5.3-12.2) % Eosinophils % (0.8-7.0) % Basophils % (0.2-1.2) % Absolute Granulocytes (1.78-5.38) x10^3/uL Basophils # (0.01-0.08) x10^3/uL Sodium (135-145) mmol/L Potassium (3.5-5.1) mmol/L Chloride (98-107) mmol/L Carbon Dioxide (22-30) mmol/L Anion Gap (5-15) MEQ/L BUN (9-20) mg/dL Creatinine (0.66-1.25) mg/dL Estimated GFR ML/MIN Glucose (74-106) mg/dL Calcium (8.4-10.2) mg/dL Total Bilirubin (0.2-1.3) mg/dL AST (17-59) U/L ALT (0-50) U/L Alkaline Phosphatase (38-126) U/L Serum Total Protein (6.3-8.2) g/dL Albumin (3.5-5.0) g/dL Free T4 (0.78-2.19) ng/dL TSH 3rd Generation (0.470-4.680) mIU/L Urine Color Yellow (Yellow) Urine Appearance Clear (Clear) Urine pH 5.5 (4.6-8.0) Ur Specific [place] 1.015 (1.005-1.030) Urine Protein Negative (Negative) Urine Glucose (UA) Negative (Negative) mg/dL Urine Ketones Negative (Negative) Urine Blood Negative (Negative) Urine Nitrite Negative (Negative) Urine Bilirubin Negative (Negative) Urine Urobilinogen 0.2 (0.2) mg/dL Ur Leukocyte Esterase Negative (Negative) U Hyaline Cast (Auto) NONE SEEN (0-2) /LPF Urine Microscopic RBC 0-2 (0-5) /HPF Urine Microscopic WBC 0-2 (0-5) /HPF Ur Epithelial Cells None Seen (None Seen) /HPF Urine Bacteria None Seen (None Seen) /HPF Urine Culture Reflexed NO (NO) Salicylates (2-20) mg/dL Urine Opiates Level NEGATIVE (NEGATIVE) Ur Methadone NEGATIVE (NEGATIVE) Acetaminophen (10-30) ug/ml Urine Barbiturates NEGATIVE (NEGATIVE) Ur Phencyclidine (PCP) NEGATIVE (NEGATIVE) Urine Amphetamine NEGATIVE (NEGATIVE) U Benzodiazepine Level NEGATIVE (NEGATIVE) Urine Cocaine NEGATIVE (NEGATIVE) Urine Marijuana (THC) NEGATIVE (NEGATIVE) Ethyl Alcohol (0-10) mg/dL Influenza Type A Ag NEGATIVE (NEGATIVE) Influenza Type B Ag NEGATIVE (NEGATIVE) RSV (PCR) NEGATIVE (NEGATIVE) SARS-CoV-2 (PCR) NEGATIVE (NEGATIVE) 04/17/24 04/17/24 04/17/24 Range/Units 11:17 11:17 11:17 WBC 6.3 (4.23-9.07) x10^3/uL RBC 2.98 L (4.63-6.08) x10^6/uL Hgb 9.6 L (13.7-17.5) g/dL Hct 29.4 L (40.1-51.0) % MCV 98.7 H (79.0-92.2) fL MCH 32.2 (25.7-32.2) pg MCHC 32.7 (32.3-36.5) g/dL RDW 13.2 (11.6-14.4) % Plt Count 178 (163-337) x10^3/uL MPV 9.2 L (9.4-12.4) fL Gran % 65.3 (34.0-67.9) % Immature Gran % (Auto) 0.6 H (0.001-0.429) % Nucleat RBC Rel Count 0.0 (0.00-0.2) % Eos # (Auto) 0.20 (0.04-0.54) x10^3/uL Immature Gran # (Auto) 0.04 H (0.001-0.031) x10^3u/L Absolute Lymphs (auto) 1.45 (1.32-3.57) x10^3/uL Absolute Monos (auto) 0.45 (0.30-0.82) x10^3/uL Absolute Nucleated RBC 0.00 (0.00-0.012) x10^3u/L Lymphocytes % 23.1 (21.8-53.1) % Monocytes % 7.2 (5.3-12.2) % Eosinophils % 3.2 (0.8-7.0) % Basophils % 0.6 (0.2-1.2) % Absolute Granulocytes 4.11 (1.78-5.38) x10^3/uL Basophils # 0.04 (0.01-0.08) x10^3/uL Sodium 144 (135-145) mmol/L Potassium 3.8 (3.5-5.1) mmol/L Chloride 107 (98-107) mmol/L Carbon Dioxide 31 H (22-30) mmol/L Anion Gap 10.3 (5-15) MEQ/L BUN 42 H (9-20) mg/dL Creatinine 1.66 H (0.66-1.25) mg/dL Estimated GFR 39.7 ML/MIN Glucose 85 (74-106) mg/dL Calcium 8.6 (8.4-10.2) mg/dL Total Bilirubin 0.50 (0.2-1.3) mg/dL AST 30 (17-59) U/L ALT 30 (0-50) U/L Alkaline Phosphatase 105 (38-126) U/L Serum Total Protein 6.3 (6.3-8.2) g/dL Albumin 3.9 (3.5-5.0) g/dL Free T4 1.27 (0.78-2.19) ng/dL TSH 3rd Generation 3.814 (0.470-4.680) mIU/L Urine Color (Yellow) Urine Appearance (Clear) Urine pH (4.6-8.0) Ur Specific [place] (1.005-1.030) Urine Protein (Negative) Urine Glucose (UA) (Negative) mg/dL Urine Ketones (Negative) Urine Blood (Negative) Urine Nitrite (Negative) Urine Bilirubin (Negative) Urine Urobilinogen (0.2) mg/dL Ur Leukocyte Esterase (Negative) U Hyaline Cast (Auto) (0-2) /LPF Urine Microscopic RBC (0-5) /HPF Urine Microscopic WBC (0-5) /HPF Ur Epithelial Cells (None Seen) /HPF Urine Bacteria (None Seen) /HPF Urine Culture Reflexed (NO) Salicylates < 1.0 L (2-20) mg/dL Urine Opiates Level (NEGATIVE) Ur Methadone (NEGATIVE) Acetaminophen < 10 L (10-30) ug/ml Urine Barbiturates (NEGATIVE) Ur Phencyclidine (PCP) (NEGATIVE) Urine Amphetamine (NEGATIVE) U Benzodiazepine Level (NEGATIVE) Urine Cocaine (NEGATIVE) Urine Marijuana (THC) (NEGATIVE) Ethyl Alcohol < 10 (0-10) mg/dL Influenza Type A Ag (NEGATIVE) Influenza Type B Ag (NEGATIVE) RSV (PCR) (NEGATIVE) SARS-CoV-2 (PCR) (NEGATIVE) - Progress Progress: unchanged Progress Note: 04/17/24 11:08 My medical decision making and the assignment of moderate complexity to this patient's medical issue today is based on review of the patient's past medical history, review of the patient's medication list, review the patient drug allergy list, history present illness and physical findings on examination. The workup in this patient includes twelve-lead EKG, CBC, CMP, salicylate level, acetaminophen level, ethyl alcohol level, urinalysis, urine drug screen, CT scan of the head without contrast, COVID/viral screen, free T4 and TSH levels. Differential diagnosis includes but is not limited to acute intracranial abnormality, urinary tract infection, medication drug reaction, dehydration, electrolyte abnormalities 04/17/24 12:[address] scan of the head without contrast was interpreted by the radiologist and I reviewed the impression. The impression states continued nonacute senile brain. 04/17/24 12:38 I interpreted the patient's laboratory data results. Based on the laboratory data results, the patient has what appears to be chronic anemia no acute blood loss. Patient has no acute or emergent medical issue. We will have the patient evaluated by mental health. 04/17/24 15:34 I will have the patient's stop the metoprolol. If patient is cleared by mental health to be discharged to home, I will have the patient/patient's family contact the prescribing provider to reevaluate whether the patient should be on this medication. 04/17/24 17:16 I have spoken with the patient and his family. I gave them the mental health recommendations which is no inpatient evaluation or management necessary. They believe his symptoms are secondary to the medication. His propranolol dose incr eased from 1 mg to 3 mg recently. Counseled pt/family regarding: lab results, diagnosis, rad results Medical Desision Making - Independent Historian Additional History obtained from: Family - Diagnostic Testing Diagnostic test were ordered, analyzed, and reviewed by me: Yes Radiological Interpretation: Reviewed by me, Teleradiologist Report - Risk of complications Low Risk: Low risk of morbidity from additional dx testing or treatment - Departure Departure Disposition: Home Clinical Impression: Medication side effects, Sinus bradycardia, Hallucinations Condition: Stable Critical Care Time: No Referrals: ROB LIZAMA MD [Primary Care Provider] - Follow up/PCP as directed Additional Instructions: Stop your metoprolol tonight. Decrease your ropinirole to 1 mg tonight. Call your prescribing provider tomorrow morning, 04/18/2024. To make them aware of your visit here in the emergency department. Informed them that we feel that your slow heart rate may be due to your metoprolol. And your hallucinations may be secondary to ropinirole.
[2024-04-17 11:06] VITALS: TEMP 97.1
[2024-04-17 11:18] LABS: Absolute Neutrophil Ct (ANC) 4.11 x10^3/uL (1.78-5.38); BASOPHIL % 0.6 % (0.2-1.2); Basophil (Absolute #) 0.04 x10^3/uL (0.01-0.08); Eosinophil % 3.2 % (0.8-7.0); Hematocrit 29.4 % (40.1-51.0); Hemoglobin 9.6 g/dL (13.7-17.5); IMMATURE GRAN # 0.04 x10^3u/L (0.001-0.031); IMMATURE GRAN % 0.6 % (0.001-0.429); Lymphocyte (Absolute #) 1.45 x10^3/uL (1.32-3.57); Lymphocytes % 23.1 % (21.8-53.1); Mean Cell Volume 98.7 fL (79.0-92.2); Mean Corpuscular Hemoglobin 32.2 pg (25.7-32.2); Mean Corpuscular Hgb Concent. 32.7 g/dL (32.3-36.5); Mean Platelet Volume 9.2 fL (9.4-12.4); Monocyte (Absolute #) 0.45 x10^3/uL (0.30-0.82); Monocytes % 7.2 % (5.3-12.2); Neutrophil % 65.3 % (34.0-67.9); Platelet Count 178 x10^3/uL (163-337); Red Blood Count 2.98 x10^6/uL (4.63-6.08); Red Cell Distribution Width 13.2 % (11.6-14.4); White Blood Count 6.3 x10^3/uL (4.23-9.07)
[2024-04-17 11:54] LABS: INFLUENZA A NEGATIVE (NEGATIVE); INFLUENZA B NEGATIVE (NEGATIVE); RESPIRATORY SYNCTIAL VIRUS NEGATIVE (NEGATIVE); SARS-CoV-2 Xpert Express NEGATIVE (NEGATIVE)
--- NOTE | 2024-04-17 11:57 | XRAY ---
Indication: Headache. Confusion. History stroke/TIA. Multiple contiguous axial images obtained through the head without contrast. Comparison: April 04, 2022 Again age-appropriate global atrophy with moderate/advanced periventricular degenerative micro-ischemia bilaterally. No acute intracranial hemorrhage, abnormal extra-axial fluid collection, or mass effect. Fourth ventricle is midline without hydrocephalus. Again incidental empty sella. Bony calvarium intact. Visualized paranasal sinuses and mastoid air cells are clear. Impression: Continued nonacute senile brain.
[2024-04-17 12:02] LABS: Appearance Clear (Clear); Bacteria None Seen /HPF (None Seen); Bilirubin Negative (Negative); Blood Negative (Negative); Epithelial Cells None Seen /HPF (None Seen); Glucose, Urine Negative (Negative); Hyaline Casts NONE SEEN /LPF (0-2); Ketones Negative (Negative); Leukocyte Esterase Negative (Negative); Nitrite Negative (Negative); Ph 5.5 (4.6-8.0); Protein,Urine Dip Negative (Negative); RBC 0-2 /HPF (0-5); Specific Gravity 1.015 (1.005-1.030); Urobilinogen 0.2 mg/dL (0.2); WBC 0-2 /HPF (0-5)
[2024-04-17 12:10] LABS: ACETAMINOPHEN < 10 ug/ml (10-30); ALBUMIN 3.9 g/dL (3.5-5.0); ALKALINE PHOSPHATASE 105 U/L (38-126); ANION GAP 10.3 MEQ/L (5-15); BLOOD UREA NITROGEN 42 mg/dL (9-20); CHLORIDE 107 mmol/L (98-107); Calcium 8.6 mg/dL (8.4-10.2); Carbon Dioxide 31 mmol/L (22-30); Creatinine 1 1.66 mg/dL (0.66-1.25); EST GLOMERULAR FILTRATION RATE 39.7 ML/MIN; ETHYL ALCOHOL < 10 mg/dL (0-10); Glucose 85 mg/dL (74-106); Potassium 3.8 mmol/L (3.5-5.1); SALICYLATE < 1.0 mg/dL (2-20); SGOT/AST 30 U/L (17-59); SGPT/ALT 30 U/L (0-50); SODIUM 144 mmol/L (135-145); TSH, 3RD Generation 3.814 mIU/L (0.470-4.680); Total Protein 6.3 g/dL (6.3-8.2)
[2024-04-17 12:12] LABS: Amphetamine,Urine NEGATIVE (NEGATIVE); Barbiturate,Urine NEGATIVE (NEGATIVE); Benzodiazepine,Urine NEGATIVE (NEGATIVE); Cocaine,Urine NEGATIVE (NEGATIVE); Methadone,Urine NEGATIVE (NEGATIVE); Opiate,Urine NEGATIVE (NEGATIVE); PCP,Urine NEGATIVE (NEGATIVE); THC,Urine NEGATIVE (NEGATIVE)
[2024-04-17 17:08] VITALS: BP 170/71; PULSE 57; RESP 19; O2SAT 97
== END 2024-04-17 17:24 | disposition home or self-care (01) ==
LOC: ED 10:45
DX: R44.1 Visual hallucinations (principal); T42.8X5A Adverse effect of antiparkinsonism drugs and other central muscle-tone depressants, initial encounter; R00.1 Bradycardia, unspecified; T44.7X5A Adverse effect of beta-adrenoreceptor antagonists, initial encounter; I12.9 Hypertensive chronic kidney disease with stage 1 through stage 4 chronic kidney disease, or unspecified chronic kidney disease; N18.9 Chronic kidney disease, unspecified; Z79.01 Long term (current) use of anticoagulants; Z79.899 Other long term (current) drug therapy
CPT/HCPCS: 0241U; 36415; 70450; 80053; 80143; 80179; 80307; 81001; 82077; 84439; 84443; 85025; 93005; 93041; 99284; Q3014